=== PATIENT | male | born 1975 | race Caucasian/White ===

== ENCOUNTER 2018-01-15 20:10 | Inpatient (IN) ==
[2018-01-15] MEDS ORDERED: Naloxone 0.4 MG/ML INJ IVP PRN (22:51)
[2018-01-15] MEDS ORDERED: D5% in Water 1,000 ML IVC PRN (22:58)
[2018-01-15] MEDS ORDERED: Dextrose Gel 15 GM/37.5 ML TUBE PO PRN ×2 (22:58)
[2018-01-15] MEDS ORDERED: *HR* Dextrose 50 % in Water (Syg) 50 ML SYRINGE IVP PRN (22:58)
--- NOTE | 2018-01-15 23:26 | Internal Med History&Physical ---
Date of Encounter: 01/15/18 Time of Encounter: 23:00 Internal Medicine - H&P: HPI Chief complaint: N/V Admitted From: Home History of present illness: Mr. Rey is a 42 year old male with past mental history of cirrhosis status post TIPS, psoriasis, metastatic malignant germ cell tumor, presented to the [facility] ED with fever and N/V. Also had intermittent chest pain, substernal, associated with cough, non-radiating, no aggravating/relieving factors. Does not endorse much sputum production. Was not able to eat or drink much due to nausea. No orthopnea, PND, leg swelling. Denies any abdominal pain, distention , diarrhea, constipation, jaundice. No dysuria, hematuria, or frequency. Denies any melena, hematemesis, hematochezia, or bright red blood per rectum. Of note, he was recently treated for K. pneumoniae bacteremia and sepsis and was discharged home on 12/31 with PO levaquin. He has not had further chemotherapy thereafter. In the ED, he was febrile at 102, tachycardic but blood pressure was normal and saturating well on 2 L of nasal cannula. Initial investigation revealed leukocytosis of 16.5, glucose of 377, and beta-OH butyrate of 1.50. Otherwise troponin was negative, EKG shows sinus tachycardia without ST elevation. Urinalysis was negative for nitrite or leukocyte esterase but chest CT showed groundglass type opacities in the right upper lobe suggestive of infectious/inflammatory process. It also showed new left lung apex, 8mm, soft tissue nodule. He was started on Vanc/cefepime and admitted for further management. Past Med Surg Social Fam HX - Past Medical History Attestation: Yes The following information was validated with the patient. Medical history: arthritis, cancer, cirrhosis, diabetes, GERD, GI bleed, hypertension, other Additional medical history: neuropathy Psychiatric history: no psych history - Past Surgical History Surgical History: other Additional surgical history: left testicle removed - Social History Smoking Status: Never smoker Smokeless Tobacco Status: No Alcohol use: none Drug use: none - Family History Father Hx Family Cardiac Disorders: Yes (murrmur) Brother Living Status: Hx Family GI Disorders: Yes (Esophgeal) Maternal Grandmother Adopted: No Hx Family Endocrine Disorder: Yes (diabetic) Internal Medicine - H&P: Meds Insulin DETEMIR [Levemir Flextouch] 45 - 60 unit SQ BID 01/10/15 [History] Rifaximin [Xifaxan] 550 mg PO BID 01/10/15 [History] Vitamin E 400 unit PO DAILY 01/10/15 [History] Apremilast [Otezla] 30 mg PO BID 11/04/17 [History] Calcium Acetate [Phos-LO] 1,334 mg PO TIDWM 11/04/17 [History] Lactulose [Enulose] 15 ml PO TID 11/04/17 [History] Loratadine [Allergy Relief] 10 mg PO DAILY 11/04/17 [History] Lubiprostone [Amitiza] 24 mcg PO BID 11/04/17 [History] Ondansetron HCl 8 mg PO Q8H 11/04/17 [History] Polyethylene Glycol 3350 [MiraLAX] 17 gm PO DAILY 11/04/17 [History] Promethazine [Phenergan] 25 mg PO Q12H PRN 11/04/17 [History] Spironolactone [Aldactone] 100 mg PO DAILY 11/04/17 [History] Zinc Sulfate 220 mg PO TID 11/04/17 [History] FLUoxetine HCl [Fluoxetine HCl] 10 mg PO DAILY 11/27/17 [History] Pregabalin [Lyrica] 200 mg PO BID 11/27/17 [History] Sulfacetamide Sodium [Sodium Sulfacetamide] 237 ml TP 2XW 11/27/17 [History] Lidocaine/Prilocaine [Emla] 1 appl TP AD #30 gm 12/07/17 [Rx] Loperamide [Imodium] 2 mg PO AD PRN #30 capsule 12/07/17 [Rx] Magic Mouthwash 5 ml PO Q4H PRN #240 ml 12/07/17 [Rx] Nystatin [Nystatin Suspension] 100,000 unit PO TID #200 oral.susp 12/21/17 [Rx] 0.9 % Sodium Chloride 1,000 ml IV CONT #1000 ml 12/24/17 [Rx] Amitriptyline [Elavil] 25 mg PO HS 12/26/17 [History] Ferrous Sulfate [Iron] 325 mg PO DAILY 12/26/17 [History] Insulin ASPART [Novolog] 5 - 20 unit SQ TIDWM 12/26/17 [History] Metoclopramide [Reglan] 10 mg PO Q8H PRN 12/26/17 [History] Pantoprazole Sodium [Protonix] 40 mg PO DAILY 12/26/17 [History] metFORMIN [Glucophage] 500 mg PO BIDWM 12/26/17 [History] Levofloxacin [Levaquin] 750 mg PO DAILY 7 Days #7 tablet 12/31/17 [Rx] Megestrol Acetate [Megace] 800 mg PO DAILY #400 udc 01/11/18 [Rx] OxyCODONE Immed Rel [Roxicodone 15 MG] 15 mg PO Q6HR PRN 14 Days #56 tablet 11/23 [Rx] Promethazine [Phenergan] 25 mg PO Q8HR #60 tablet 01/15/18 [Rx] 3 Allergy/AdvReac Type Severity Reaction Status Date / Time morphine Allergy Itching Verified 12/06/17 15:45 All Systems PM: A 10-system review of systems was performed and is negative for pertinent findings except as documented above in the HPI. - Constitutional Vitals: Temp Pulse Resp BP Pulse Ox 99.1 F 123 18 131/70 100 01/15/18 23:06 01/15/18 23:06 01/15/18 23:06 01/15/18 23:06 01/15/18 23:06 Exam: General: Alert and oriented, not in distress HEENT:EOM, pupils equal, round, and reactive. Cardiovascular: Normal S1 & S2, no murmurs or gallops. No JVD. Pulse regular. Lungs: Clear to auscultation, unable to appreciate any rhonchi. No wheezes Abdomen:Soft, non-tender, no rigidity. No rebound/guarding. Extremities: No deformity, no edema or tenderness, no joint swelling. Neurological: Normal cognition and motor skills. Skin: Normal color, no rash, no lesions. Pulses:Carotid and radial pulses normal +2. Rest of the physical exam is non-contributory - Assessment and plan (1) Sepsis Current Visit: No Status: Acute Assessment and plan: Presented with fever, leukocytosis, and tachycardia CT chest suspicious for early pneumonia changes in RUL Patient is immunocompromised as well Started on IV Vanco and cefepime, continue follow up on blood c/s done at [place] PRN tylenol for fever Qualifiers: Sepsis type: sepsis due to unspecified organism Qualified Code(s): A41.9 - Sepsis, unspecified organism (2) Chest pain Current Visit: Yes Status: Acute Assessment and plan: Likely related to pneumonia rule out ACS with 2nd troponin Qualifiers: Chest pain type: unspecified Qualified Code(s): R07.9 - Chest pain, unspecified (3) Diabetes mellitus, type 2 Current Visit: No Status: Chronic Assessment and plan: On Levemir 60U QAM and 43U QPM plus novolog sliding scale at home continue levemir at 40U BID with moderate dose sliding scale Qualifiers: Diabetes mellitus fpc 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 Diabetes mellitus complication status: with neurologic complications Diabetes mellitus complication detail: with unspecified neuropathy Qualified Code(s): E11.40 - Type 2 diabetes mellitus with diabetic neuropathy, unspecified; Z79.4 - group home (current) use of insulin (4) Liver cirrhosis Current Visit: No Status: Acute Assessment and plan: Status post TIPS Resume home dose of lactulose, rifaximin, and Aldactone when reconciled Qualifiers: Hepatic cirrhosis type: unspecified hepatic cirrhosis Ascites presence: unspecified Qualified Code(s): K74.60 - Unspecified cirrhosis of liver (5) Testicular cancer Current Visit: No Status: Acute Assessment and plan: Chemo on hold due to recent hospitalization for sepsis Suspicious nodule on the left lung follow up outpatient Qualifiers: Descendance of testis: unspecified Laterality: unspecified laterality Qualified Code(s): C62.90 - Malignant neoplasm of unspecified testis, unspecified whether descended or undescended (6) DVT prophylaxis Current Visit: No Status: Acute Assessment and plan: SQ heparin - Time Spent With Patient Total time spent is greater than 50% in coordination of care (as documented) at patient's floor/unit and/or counseling patient:
[2018-01-16] MEDS: Insulin DETEMIR 100 UNIT/ML X5UNITS SQ SCH ×3 (01:03→20:25)
[2018-01-16] MEDS: 0.9 % Sodium Chloride 1,000 ML IVC SCH ×3 (01:03→23:10)
[2018-01-16] MEDS: Cefepime HCl 2,000 MG in Water for inj. (sterile) 20 ML 20 ML IVPB SCH ×3 (03:36→17:05)
[2018-01-16 04:42] LABS: Basophils # 0.1 K/mcL (0.0-0.2); Basophils % 0.7 %; Eosinophils # 0.2 K/mcL (0.0-0.6); Eosinophils % 1.8 %; Hematocrit 33.9 % (37.5-50.1); Hemoglobin 11.8 g/dL (12.9-16.9); Immature Granulocytes % 0.4 % (0-4); Lymphocytes # 0.9 K/mcL (0.6-4.6); Lymphocytes % 9.6 %; Mean Corpuscular HGB Conc 34.8 g/dL (31.6-35.5); Mean Corpuscular Hemoglobin 31.1 pg (28.0-33.3); Mean Corpuscular Volume 89.4 fL (83.0-100.0); Mean Platelet Volume 11.4 fL (9.4-12.4); Monocytes % 10.4 %; Neutrophils # 7.5 K/mcL (1.6-8.9); Platelet Count 115 K/mcL (140-400); Red Blood Count 3.79 M/mcL (4.19-5.50); Red Cell Distribution Width 17.4 % (11.5-14.5); Segmented Neutrophils % 77.1 %
[2018-01-16 05:00] LABS: BUN/Creatinine Ratio 48 (6-26); Blood Urea Nitrogen 20 mg/dL (6-20); Calcium 8.1 mg/dL (8.6-10.3); Carbon Dioxide 24 mEq/L (23-29); Chloride 105 mEq/L (98-107); Glucose 280 mg/dL (70-105); Osmolality,Calculated 295 (280-300); Potassium 3.8 mEq/L (3.5-5.1); Sodium 136 mEq/L (136-145); eGFR For Non-African Americans > 60 (> 60)
[2018-01-16] MEDS: *HR* Heparin 5,000 UNIT/ML VIAL SQ SCH ×2 (06:11→17:00)
[2018-01-16] MEDS ORDERED: 0.9 % Sodium Chloride 1,000 ML IVC ONE (08:19)
[2018-01-16] MEDS: Insulin LISPRO 300 UNITS/3 ML VIAL SQ SCH ×4 (08:36→20:15)
--- NOTE | 2018-01-16 08:51 | Internal Med Progress Note ---
<Juan Pablo Queen - Last Filed: 01/16/18 08:54> Hospitalist Progress Note - Encounter Date of Encounter: 01/16/18 Time of Encounter: 08:47 - Subjective Interval History: Pt seen and examined. He states he is feeling better this morning and has no vomiting or subjective fevers. Still has some nausea but was able to eat breakfast and keep it down. Has some constipation and no bowel movement in last 4 days. Denies chest pain, shortness of breath, cough. - Exam Vitals: Temp Pulse Resp BP Pulse Ox 99.1 F 120 18 139/69 98 01/16/18 07:17 01/16/18 07:17 01/16/18 07:17 01/16/18 07:17 01/16/18 07:17 Exam: Gen: NAD, alert, awake HEENT: NCAT, EOMI, neck supple, no LAD Cardiac: RRR, no murmur Lungs: clear Abd: non tender Ext: non-tender, no edema, erythema Neuro: appropriate affect, answers questions appropriately - Assessment and Plan (1) Sepsis Current Visit: No Status: Acute Assessment and Plan: Presented to [place] ED with WBC of 16.5 which has improved to 9.8 Remains tachycardic, and fluid boluses have been ordered Source is presumably pulmonary for now as CTA demonstrated RUL opacity Given recent prolonged hospital stay and recent neutropenic fever, he was started on Vanc and Cefepime Also has lesions in mouth which are concerning for abdulaziz, will start on Micafungin and Nystatin swish and swallow Blood cultures collected at [place] ED currently negative He was discharged 2 weeks ago from here but did not fill his 1 week supply of Levaquin (2) Abdominal discomfort Current Visit: No Status: Acute Assessment and Plan: Symptoms improving, continue supportive measures CTA did demonstrate cholelithiasis without cholecystitis May be candidate as outpatient for surgery (3) Chest pain Current Visit: Yes Status: Acute Assessment and Plan: Currently resolved Troponin negative x2 at [place] Possibly secondary to PNA (4) Diabetes mellitus, type 2 Current Visit: No Status: Chronic Assessment and Plan: Currently on medium dose SSI and Levemir 40 units BID ADA diet (5) Liver cirrhosis Current Visit: No Status: Chronic Assessment and Plan: Stable appearance on CTA s/p TIPS and he is currently on transplant list (6) Testicular cancer Current Visit: No Status: Chronic Assessment and Plan: Chemo currently being held as he was acutely ill with neutropenic fever CTA did demonstrate left lung apex lesion concerning for mets, would recommend further workup as outpatient with PET scan (7) DVT prophylaxis Current Visit: No Status: Acute Assessment and Plan: Heparin 5000 units BID - Time Spent with Patient Total time spent is greater than 50% in coordination of care (as documented) at patient's floor/unit and/or counseling patient: Internal Medicine: Result - Labs CBC & Chem 7: 01/16/18 04:21 01/16/18 04:21 Labs: Short CBC 01/16/18 Range/Units 04:21 WBC 9.8 (4.3-11.1) K/mcL Hgb 11.8 L D (12.9-16.9) g/dL Hct 33.9 L (37.5-50.1) % Plt Count 115 L (140-400) K/mcL Neutrophils # 7.5 (1.6-8.9) K/mcL BMP 01/16/18 04:21 Sodium 136 Potassium 3.8 Chloride 105 Carbon Dioxide 24 BUN 20 Creatinine 0.42 L Glucose 280 H Calcium 8.1 L Cardiac Enzymes 01/15/18 Range/Units 23:05 Troponin I < 0.03 (< 0.04) ng/mL Consult Discharge Plan - Plan Referrals: Tripp Angulo DO [Primary Care Provider] - <Meghan Mcguire - Last Filed: 01/16/18 14:47> Hospitalist Progress Note - Encounter Date of Encounter: 01/16/18 - Exam Vitals: Temp Pulse Resp BP Pulse Ox 98.8 F 118 20 116/68 99 01/16/18 11:27 01/16/18 11:27 01/16/18 11:27 01/16/18 11:27 01/16/18 11:27 - Assessment and Plan (1) Diabetes mellitus, type 2 Current Visit: No Status: Chronic (2) Testicular cancer Current Visit: No Status: Chronic (3) Liver cirrhosis Current Visit: No Status: Chronic (4) DVT prophylaxis Current Visit: No Status: Acute (5) Sepsis Current Visit: No Status: Inactive (6) Chest pain Current Visit: Yes Status: Acute - Time Spent with Patient Total time spent is greater than 50% in coordination of care (as documented) at patient's floor/unit and/or counseling patient: Internal Medicine: Result - Labs CBC & Chem 7: 01/16/18 04:21 01/16/18 04:21 Labs: Short CBC 01/16/18 Range/Units 04:21 WBC 9.8 (4.3-11.1) K/mcL Hgb 11.8 L D (12.9-16.9) g/dL Hct 33.9 L (37.5-50.1) % Plt Count 115 L (140-400) K/mcL Neutrophils # 7.5 (1.6-8.9) K/mcL BMP 01/16/18 04:21 Sodium 136 Potassium 3.8 Chloride 105 Carbon Dioxide 24 BUN 20 Creatinine 0.42 L Glucose 280 H Calcium 8.1 L Cardiac Enzymes 01/15/18 Range/Units 23:05 Troponin I < 0.03 (< 0.04) ng/mL - Attending Attestation I examined this patient and my medical decision-making was reviewed with the Resident Physician Dr. Queen. I agree with the documented findings, disposition and treatment plan as described except to the extent set forth below. Mr. Rey is a 42 year old male with past mental history of cirrhosis status post TIPS, psoriasis, metastatic malignant germ cell tumor, presented to the [facility] ED with fever and N/V. He was recently treated for K. pneumoniae bacteremia and sepsis and was discharged home on 12/31 with PO levaquin. He has not had further chemotherapy thereafter. In the ED, he was febrile at 102, tachycardic but blood pressure was normal and saturating well on 2 L of nasal cannula. Chest CT showed groundglass type opacities in the right upper lobe suggestive of infectious/inflammatory process. He also c/o throat pain and difficulty to swallow, burning sensation at mid sternal region. gen: A, A, O x 3 Chest: Diminished BS b/l Heart; S1S2+ RRR No murmurs Abd: Soft, NT, BS + HEENT: oral thrush+ a/p 1. Sepsis with pneumonia mostly bacterial cont broad spec abx IV hydration 2. Oral thrush 3. Acute esophagitis - possible abdulaziz inf started on Micafungin also placed him on Nystatin oral jena <Juan Pablo Queen - Last Filed: 01/16/18 08:54> (1) Sepsis Qualifiers: Sepsis type: sepsis due to unspecified organism Qualified Code(s): A41.9 - Sepsis, unspecified organism (3) Chest pain Qualifiers: Chest pain type: unspecified Qualified Code(s): R07.9 - Chest pain, unspecified (4) Diabetes mellitus, type 2 Qualifiers: Diabetes mellitus retirement insulin use: with retirement use Diabetes mellitus complication status: with neurologic complications Diabetes mellitus complication detail: with unspecified neuropathy Qualified Code(s): E11.40 - Type 2 diabetes mellitus with diabetic neuropathy, unspecified; 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.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 (5) Liver cirrhosis Qualifiers: Hepatic cirrhosis type: unspecified hepatic cirrhosis Ascites presence: unspecified Qualified Code(s): K74.60 - Unspecified cirrhosis of liver (6) Testicular cancer Qualifiers: Descendance of testis: unspecified Laterality: unspecified laterality Qualified Code(s): C62.90 - Malignant neoplasm of unspecified testis, unspecified whether descended or undescended <Meghan Mcguire - Last Filed: 01/16/18 14:47> (1) Diabetes mellitus, type 2 Qualifiers: 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 use Diabetes mellitus complication status: with neurologic complications Diabetes mellitus complication detail: with unspecified neuropathy Qualified Code(s): E11.40 - Type 2 diabetes mellitus with diabetic neuropathy, unspecified; Z79.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 (2) Testicular cancer Qualifiers: Descendance of testis: unspecified Laterality: unspecified laterality Qualified Code(s): C62.90 - Malignant neoplasm of unspecified testis, unspecified whether descended or undescended (3) Liver cirrhosis Qualifiers: Hepatic cirrhosis type: unspecified hepatic cirrhosis Ascites presence: unspecified Qualified Code(s): K74.60 - Unspecified cirrhosis of liver (5) Sepsis Qualifiers: Sepsis type: sepsis due to unspecified organism Qualified Code(s): A41.9 - Sepsis, unspecified organism (6) Chest pain Qualifiers: Chest pain type: unspecified Qualified Code(s): R07.9 - Chest pain, unspecified
[2018-01-16] MEDS: Ondansetron ODT 4 MG TAB.RAPDIS SL PRN ×3 (08:55→23:09)
[2018-01-16] MEDS: Micafungin 100 MG in 0.9 % Sodium Chloride Mini Bag 100 ML IVPB SCH (09:57)
[2018-01-16] MEDS: Nystatin SUSP 5 ML UD.LIQ PO SCH ×4 (09:58→20:24)
[2018-01-16] MEDS ORDERED: Sennosides/Docusate Sodium TABLET PO PRN (10:37)
[2018-01-16] MEDS: *HR* OxyCODONE Immed Rel 15 MG TABLET PO PRN ×2 (17:06→23:09)
[2018-01-17] MEDS: Cefepime HCl 2,000 MG in Water for inj. (sterile) 20 ML 20 ML IVPB SCH ×3 (01:46→18:31)
[2018-01-17] MEDS: *HR* Heparin 5,000 UNIT/ML VIAL SQ SCH ×2 (05:15→18:31)
[2018-01-17] MEDS: *HR* OxyCODONE Immed Rel 15 MG TABLET PO PRN ×3 (05:21→21:57)
[2018-01-17] MEDS: Ondansetron ODT 4 MG TAB.RAPDIS SL PRN ×3 (05:21→21:57)
[2018-01-17 05:24] LABS: Immature Granulocytes % 0.2 % (0-4); Mean Platelet Volume 12.3 fL (9.4-12.4)
[2018-01-17 05:27] LABS: Basophils # 0.1 K/mcL (0.0-0.2); Basophils % 1.1 %; Eosinophils # 0.2 K/mcL (0.0-0.6); Eosinophils % 3.8 %; Hemoglobin 11.4 g/dL (12.9-16.9); Immature Platelets 7.6 % (1.1-6.1); Lymphocytes # 0.7 K/mcL (0.6-4.6); Lymphocytes % 15.3 %; Mean Corpuscular HGB Conc 34.5 g/dL (31.6-35.5); Mean Corpuscular Hemoglobin 32.1 pg (28.0-33.3); Monocytes # 0.6 K/mcL (0.0-1.3); Monocytes % 12.1 %; Neutrophils # 3.2 K/mcL (1.6-8.9); Red Blood Count 3.55 M/mcL (4.19-5.50); Red Cell Distribution Width 17.1 % (11.5-14.5); Segmented Neutrophils % 67.5 %
[2018-01-17 05:32] LABS: Platelet Count 62 K/mcL (140-400)
[2018-01-17 05:46] LABS: BUN/Creatinine Ratio 50 (6-26); Blood Urea Nitrogen 19 mg/dL (6-20); Calcium 8.1 mg/dL (8.6-10.3); Carbon Dioxide 26 mEq/L (23-29); Chloride 108 mEq/L (98-107); Glucose 119 mg/dL (70-105); Osmolality,Calculated 289 (280-300); Potassium 3.6 mEq/L (3.5-5.1); Sodium 138 mEq/L (136-145); eGFR For Non-African Americans > 60 (> 60)
[2018-01-17] MEDS: Insulin LISPRO 300 UNITS/3 ML VIAL SQ SCH ×4 (08:05→21:57)
[2018-01-17] MEDS: Nystatin SUSP 5 ML UD.LIQ PO SCH ×4 (08:43→21:57)
[2018-01-17] MEDS: Micafungin 100 MG in 0.9 % Sodium Chloride Mini Bag 100 ML IVPB SCH (08:45)
[2018-01-17] MEDS: Insulin DETEMIR 100 UNIT/ML X5UNITS SQ SCH ×2 (08:45→21:57)
[2018-01-17] MEDS: 0.9 % Sodium Chloride 1,000 ML IVC SCH ×2 (08:46→21:58)
--- NOTE | 2018-01-17 09:39 | Internal Med Progress Note ---
<Juan Pablo Queen - Last Filed: 01/17/18 10:50> Hospitalist Progress Note - Encounter Date of Encounter: 01/17/18 Time of Encounter: 09:38 - Subjective Interval History: Pt seen and examined. He states that he is having difficulty eating as the food feels like it is getting stuck after reaching his stomach. Denies any vomiting and has not had a bowel movement since admission. Denies chest pain or difficultly breathing. - Exam Vitals: Temp Pulse Resp BP Pulse Ox 98.0 F 107 16 117/74 98 01/17/18 07:41 01/17/18 07:41 01/17/18 07:41 01/17/18 07:41 01/17/18 07:41 Exam: Gen: NAD, alert, awake HEENT: NCAT, EOMI, neck supple, no LAD Cardiac: RRR, no murmur Lungs: clear Abd: tender epigastric Ext: non-tender, no edema, erythema Neuro: appropriate affect, answers questions appropriately - Assessment and Plan (1) Sepsis Current Visit: No Status: Acute Assessment and Plan: Presented to [place] ED with WBC of 16.5 which has improved to 4.7 Remains tachycardic, and fluid boluses have been ordered Source is presumably pulmonary for now as CTA demonstrated RUL opacity Given recent prolonged hospital stay and recent neutropenic fever, he was started on Vanc and Cefepime Also has lesions in mouth which are concerning for abdulaziz, continue on Micafungin and Nystatin swish and swallow Blood cultures collected at [place] ED currently negative He was discharged 2 weeks ago from here but did not fill his 1 week supply of Levaquin (2) Abdominal discomfort Current Visit: No Status: Acute Assessment and Plan: Symptoms slightly worsened today as patient has discomfort during meals CTA did demonstrate cholelithiasis without cholecystitis Will obtain RUQ ultrasound and consider surgical consult May qualify for endoscopy as well, so make NPO at midnight (3) Chest pain Current Visit: Yes Status: Acute Assessment and Plan: Currently resolved Troponin negative x2 at [place] Possibly secondary to PNA (4) Diabetes mellitus, type 2 Current Visit: No Status: Chronic Assessment and Plan: Currently on medium dose SSI and Levemir 40 units BID ADA diet (5) Liver cirrhosis Current Visit: No Status: Chronic Assessment and Plan: Stable appearance on CTA s/p TIPS and he is currently on transplant list Consider GI consult for endoscopy if surgery not needed for gallbladder (6) Testicular cancer Current Visit: No Status: Chronic Assessment and Plan: Chemo currently being held as he was acutely ill with neutropenic fever CTA did demonstrate left lung apex lesion concerning for mets, would recommend further workup as outpatient with PET scan (7) DVT prophylaxis Current Visit: No Status: Acute Assessment and Plan: Heparin 5000 units BID - Time Spent with Patient Total time spent is greater than 50% in coordination of care (as documented) at patient's floor/unit and/or counseling patient: Internal Medicine: Result - Labs CBC & Chem 7: 01/17/18 04:52 01/17/18 04:52 Labs: Short CBC 01/17/18 Range/Units 04:52 WBC 4.7 D (4.3-11.1) K/mcL Hgb 11.4 L (12.9-16.9) g/dL Hct 33.0 L (37.5-50.1) % Plt Count 62 L (140-400) K/mcL Neutrophils # 3.2 (1.6-8.9) K/mcL BMP 01/17/18 04:52 Sodium 138 Potassium 3.6 Chloride 108 H Carbon Dioxide 26 BUN 19 Creatinine 0.38 L Glucose 119 H Calcium 8.1 L Consult Discharge Plan - Plan Referrals: Tripp Angulo DO [Primary Care Provider] - <Meghan Mcguire - Last Filed: 01/17/18 15:17> Hospitalist Progress Note - Encounter Date of Encounter: 01/17/18 - Exam Vitals: Temp Pulse Resp BP Pulse Ox 98.2 F 115 16 121/76 97 01/17/18 12:02 01/17/18 12:02 01/17/18 12:02 01/17/18 12:02 01/17/18 12:02 - Assessment and Plan (1) Diabetes mellitus, type 2 Current Visit: No Status: Chronic (2) Testicular cancer Current Visit: No Status: Chronic (3) Liver cirrhosis Current Visit: No Status: Chronic (4) DVT prophylaxis Current Visit: No Status: Acute (5) Sepsis Current Visit: No Status: Inactive (6) Chest pain Current Visit: Yes Status: Acute - Time Spent with Patient Total time spent is greater than 50% in coordination of care (as documented) at patient's floor/unit and/or counseling patient: Internal Medicine: Result - Labs CBC & Chem 7: 01/17/18 04:52 01/17/18 04:52 Labs: Short CBC 01/17/18 Range/Units 04:52 WBC 4.7 D (4.3-11.1) K/mcL Hgb 11.4 L (12.9-16.9) g/dL Hct 33.0 L (37.5-50.1) % Plt Count 62 L (140-400) K/mcL Neutrophils # 3.2 (1.6-8.9) K/mcL BMP 01/17/18 04:52 Sodium 138 Potassium 3.6 Chloride 108 H Carbon Dioxide 26 BUN 19 Creatinine 0.38 L Glucose 119 H Calcium 8.1 L - Attending Attestation I examined this patient and my medical decision-making was reviewed with the Resident Physician Dr. Queen. I agree with the documented findings, disposition and treatment plan as described except to the extent set forth below. Mr. Rey is a 42 year old male with past mental history of cirrhosis status post TIPS, psoriasis, metastatic malignant germ cell tumor, presented to the [facility] ED with fever and N/V. He was recently treated for K. pneumoniae bacteremia and sepsis and was discharged home on 12/31 with PO levaquin. He has not had further chemotherapy thereafter. In the ED, he was febrile at 102, tachycardic but blood pressure was normal and saturating well on 2 L of nasal cannula. Chest CT showed ground glass type opacities in the right upper lobe suggestive of infectious/inflammatory process. He also c/o throat pain and difficulty to swallow, burning sensation at mid sternal region as well as epi gastric region gen: A, A, O x 3 Chest: Diminished BS b/l Heart; S1S2+ RRR No murmurs Abd: Soft, NT, BS + HEENT: oral thrush+ a/p 1. Sepsis with pneumonia mostly bacterial cont broad spec abx IV hydration 2. Oral thrush 3. 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 Diabetes mellitus complication status: with neurologic complications Diabetes mellitus complication detail: with unspecified neuropathy Qualified Code(s): E11.40 - Type 2 diabetes mellitus with diabetic neuropathy, unspecified; Z79.4 - [facility] (current) use of insulin (5) Liver cirrhosis Qualifiers: Hepatic cirrhosis type: unspecified hepatic cirrhosis Ascites presence: unspecified Qualified Code(s): K74.60 - Unspecified cirrhosis of liver (6) Testicular cancer Qualifiers: Descendance of testis: unspecified Laterality: unspecified laterality Qualified Code(s): C62.90 - Malignant neoplasm of unspecified testis, unspecified whether descended or undescended <Meghan Mcguire - Last Filed: 01/17/18 15:17> (1) Diabetes mellitus, type 2 Qualifiers: Diabetes mellitus halfway insulin use: with halfway use Diabetes mellitus complication status: with neurologic complications Diabetes mellitus complication detail: with unspecified neuropathy Qualified Code(s): E11.40 - Type 2 diabetes mellitus with diabetic neuropathy, unspecified; Z79.4 - [facility] (current) use of insulin (2) Testicular cancer Qualifiers: Descendance of testis: unspecified Laterality: unspecified laterality Qualified Code(s): C62.90 - Malignant neoplasm of unspecified testis, unspecified whether descended or undescended (3) Liver cirrhosis Qualifiers: Hepatic cirrhosis type: unspecified hepatic cirrhosis Ascites presence: unspecified Qualified Code(s): K74.60 - Unspecified cirrhosis of liver (5) Sepsis Qualifiers: Sepsis type: sepsis due to unspecified organism Qualified Code(s): A41.9 - Sepsis, unspecified organism (6) Chest pain Qualifiers: Chest pain type: unspecified Qualified Code(s): R07.9 - Chest pain, unspecified
[2018-01-17] MEDS: Metoclopramide 10 MG/2 ML VIAL IVP PRN (11:05)
[2018-01-18] MEDS: Cefepime HCl 2,000 MG in Water for inj. (sterile) 20 ML 20 ML IVPB SCH ×2 (02:06→08:55)
[2018-01-18 05:17] LABS: Basophils % 0.8 %; Eosinophils # 0.1 K/mcL (0.0-0.6); Eosinophils % 3.6 %; Hematocrit 30.2 % (37.5-50.1); Hemoglobin 10.4 g/dL (12.9-16.9); Immature Granulocytes % 0.3 % (0-4); Lymphocytes # 0.6 K/mcL (0.6-4.6); Lymphocytes % 14.3 %; Mean Corpuscular HGB Conc 34.4 g/dL (31.6-35.5); Mean Corpuscular Hemoglobin 31.2 pg (28.0-33.3); Mean Corpuscular Volume 90.7 fL (83.0-100.0); Mean Platelet Volume 12.4 fL (9.4-12.4); Monocytes # 0.5 K/mcL (0.0-1.3); Neutrophils # 2.7 K/mcL (1.6-8.9); Red Blood Count 3.33 M/mcL (4.19-5.50); Red Cell Distribution Width 16.9 % (11.5-14.5)
[2018-01-18 05:19] LABS: Platelet Count 57 K/mcL (140-400)
[2018-01-18 05:21] LABS: INR 1.5; Prothrombin Time 17.1 Seconds (9.4-12.1)
[2018-01-18 05:43] LABS: Alanine Aminotransferase 13 Units/L (7-52); Albumin 2.3 g/dL (3.5-5.7); Albumin/Globulin Ratio 0.9 (1.1-2.2); Alkaline Phosphatase 99 Units/L (34-104); Aspartate Amino Transferase 26 Units/L (13-39); BUN/Creatinine Ratio 35 (6-26); Blood Urea Nitrogen 12 mg/dL (6-20); Calcium 7.9 mg/dL (8.6-10.3); Carbon Dioxide 26 mEq/L (23-29); Chloride 109 mEq/L (98-107); Globulin 2.7 g/dL (2.4-3.5); Glucose 79 mg/dL (70-105); Osmolality,Calculated 285 (280-300); Potassium 3.5 mEq/L (3.5-5.1); Sodium 138 mEq/L (136-145); eGFR For Non-African Americans > 60 (> 60)
[2018-01-18] MEDS: *HR* Heparin 5,000 UNIT/ML VIAL SQ SCH (06:26)
[2018-01-18] MEDS: Nystatin SUSP 5 ML UD.LIQ PO SCH ×4 (08:54→20:29)
[2018-01-18] MEDS: Insulin LISPRO 300 UNITS/3 ML VIAL SQ SCH ×4 (08:56→20:31)
[2018-01-18] MEDS: Micafungin 100 MG in 0.9 % Sodium Chloride Mini Bag 100 ML IVPB SCH (08:56)
[2018-01-18] MEDS: Insulin DETEMIR 100 UNIT/ML X5UNITS SQ SCH ×2 (08:57→20:30)
--- NOTE | 2018-01-18 12:40 | Electrocardiograph Report ---
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
--- NOTE | 2018-01-18 13:13 | Internal Med Progress Note ---
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 Since admission the patient was found to be septic with most likely source being a right upper lobe opacity. Today the patient states his abdominal pain persists. He states that he feels a sense of fullness in his throat when eating then feels a sharp, knot-like pain in his abdomen immediately afterwards. He notes continued cough and coffee ground emesis. He is otherwise having normal bowel movements and urinating without problems. - Exam Vitals: Temp Pulse Resp BP Pulse Ox 98.7 F 106 16 124/72 99 01/18/18 11:40 01/18/18 11:40 01/18/18 11:40 01/18/18 11:40 01/18/18 11:40 Exam: General: Patient is a 42yo white male, appears older than his stated age. Conversant, No Apparent Distress, able to speak in full sentences and follow commands Neck: No JVD, trachea midline HEENT: PERRL, normocephalic, atraumatic, patchy hair secondary to chemotherapy Cardiac: Tachycardic, regular Rhythm, Normal S1 and S2, No murmurs appreciated Pulmonary: Decreased breath sounds in RUL, No Wheezes, Rales, or Rhonchi, Not in respiratory distress on 1L NC Abdomen: soft, distended, tenderness periumbilically R>L, no murphys or mcburneys tenderness Neuro: Alert and responsive, No focal deficits noted Vascular: Normal capillary refill Skin: No rashes noted on visualized skin Musculoskeletal: No Chest Wall Tenderness Extremities: No Clubbing, No Cyanosis, No Edema, Normal Pulses Psych: Normal mood, pleasant, conversant - Assessment and Plan (1) Sepsis Current Visit: No Status: Acute Assessment and Plan: - Likely secondary to pneumonia - Continue on cefepime, will decrease from neutropenic dosage of 2g to 1g every 8 hours per pharmacy recommendations, will discontinue vancomycin - Given fungal infection, will continue nystatin (2) Chest pain Current Visit: Yes Status: Acute Assessment and Plan: - Currently resolved, states this is only present when he eats - Troponins x2 negative on admission, EKG sinus tachycardia (3) Testicular cancer Current Visit: No Status: Chronic Assessment and Plan: - Metastatic, s/p orchiectomy on L, now metastasized to lymph nodes with possibly a new lesion in the left lung apex - will require outpatient PET scan (4) Abdominal discomfort Current Visit: Yes Status: Acute Assessment and Plan: - RUQ US showed cholelithiasis without evidence of cholecystitis - Patient has coffee-ground emesis and history of cirrhosis with esophageal varices, will consult GI for endoscopy - Continues on zofran 4mg, metoclopramide 5mg, and senna (5) 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 Current Visit: No Status: Chronic Assessment and Plan: - H/o esophageal ulcers, given new onset coffee-ground emesis and persistent abdominal pain after eating will consult GI for endoscopy (6) Diabetes mellitus, type 2 Current Visit: No Status: Chronic Assessment and Plan: - Continues on insulin detemir 40units BID and sliding scale humalog (7) DVT prophylaxis Current Visit: No Status: Acute Assessment and Plan: - Given thrombocytopenia and possible GI bleeding, have discontinued heparin, will continue the patient on SCDs - Time Spent with Patient Total time spent is greater than 50% in coordination of care (as documented) at patient's floor/unit and/or counseling patient: Internal Medicine: Result - Labs CBC & Chem 7: 01/18/18 04:56 01/18/18 04:56 Labs: Short CBC 01/18/18 Range/Units 04:56 WBC 3.9 L (4.3-11.1) K/mcL Hgb 10.4 L (12.9-16.9) g/dL Hct 30.2 L (37.5-50.1) % Plt Count 57 L (140-400) K/mcL Neutrophils # 2.7 (1.6-8.9) K/mcL BMP 01/18/18 04:56 Sodium 138 Potassium 3.5 Chloride 109 H Carbon Dioxide 26 BUN 12 Creatinine 0.34 L Glucose 79 Calcium 7.9 L Liver Function 01/18/18 Range/Units 04:56 Total Bilirubin 2.0 H (0.3-1.0) mg/dL AST 26 (13-39) Units/L ALT 13 (7-52) Units/L Alkaline Phosphatase 99 (34-104) Units/L Albumin 2.3 L (3.5-5.7) g/dL - ABG Interpretation ABG results: PT/INR, D-dimer PT 17.1 Seconds (9.4-12.1) H 01/18/18 04:56 - Impressions Impressions Gallbladder Ultrasound 01/18/18 08:00 IMPRESSION: 1. Cholelithiasis without evidence of cholecystitis. 2. Cirrhotic appearing liver as described. D/ / Farida Wilkerson MD / Farida Wilkerson MD Interpreting Provider: Farida Wilekrson MD Consult Discharge Plan - Plan Referrals: Tripp Angulo DO [Primary Care Provider] - <Meghan Mcguire - Last Filed: 01/18/18 15:08> Hospitalist Progress Note - Encounter Date of Encounter: 01/18/18 - Exam Vitals: Temp Pulse Resp BP Pulse Ox 98.3 F 115 18 136/74 100 01/18/18 14:14 01/18/18 14:14 01/18/18 14:14 01/18/18 14:14 01/18/18 14:14 - Assessment and Plan (1) Diabetes mellitus, type 2 Current Visit: No Status: Chronic (2) Testicular cancer Current Visit: No Status: Chronic (3) Liver cirrhosis Current Visit: No Status: Chronic (4) DVT prophylaxis Current Visit: No Status: Acute (5) Sepsis Current Visit: No Status: Inactive (6) Chest pain Current Visit: Yes Status: Acute - Time Spent with Patient Total time spent is greater than 50% in coordination of care (as documented) at patient's floor/unit and/or counseling patient: Internal Medicine: Result - Labs CBC & Chem 7: 01/18/18 04:56 01/18/18 04:56 Labs: Short CBC 01/18/18 Range/Units 04:56 WBC 3.9 L (4.3-11.1) K/mcL Hgb 10.4 L (12.9-16.9) g/dL Hct 30.2 L (37.5-50.1) % Plt Count 57 L (140-400) K/mcL Neutrophils # 2.7 (1.6-8.9) K/mcL BMP 01/18/18 04:56 Sodium 138 Potassium 3.5 Chloride 109 H Carbon Dioxide 26 BUN 12 Creatinine 0.34 L Glucose 79 Calcium 7.9 L Liver Function 01/18/18 Range/Units 04:56 Total Bilirubin 2.0 H (0.3-1.0) mg/dL AST 26 (13-39) Units/L ALT 13 (7-52) Units/L Alkaline Phosphatase 99 (34-104) Units/L Albumin 2.3 L (3.5-5.7) g/dL - ABG Interpretation ABG results: PT/INR, D-dimer PT 17.1 Seconds (9.4-12.1) H 01/18/18 04:56 - Impressions Impressions Gallbladder Ultrasound 01/18/18 08:00 IMPRESSION: 1. Cholelithiasis without evidence of cholecystitis. 2. Cirrhotic appearing liver as described. D/ / Farida Wilkerson MD / Farida Wilkerson MD Interpreting Provider: Farida Wilkerson MD - Attending Attestation I examined this patient and my medical decision-making was reviewed with the Resident Physician Dr. Roa. I agree with the documented findings, disposition and treatment plan as described except to the extent set forth below. Mr. Rey is a 42 year old male with past mental history of cirrhosis status post TIPS, psoriasis, metastatic malignant germ cell tumor, presented to the [facility] ED with fever and N/V. He was recently treated for K. pneumoniae bacteremia and sepsis and was discharged home on 12/31 with PO levaquin. He has not had further chemotherapy thereafter. In the ED, he was febrile at 102, tachycardic but blood pressure was normal and saturating well on 2 L of nasal cannula. Chest CT showed ground glass type opacities in the right upper lobe suggestive of infectious/inflammatory process. He also c/o throat pain and difficulty to swallow, burning sensation at mid sternal region as well as epi gastric region gen: A, A, O x 3 Chest: Diminished BS b/l Heart; S1S2+ RRR No murmurs Abd: Soft, NT, BS + HEENT: oral thrush+ a/p 1. Sepsis with pneumonia mostly bacterial cont broad spec abx d/c Vancomycin IV hydration 2. Oral thrush 3. Acute esophagitis - possible abdulaziz inf Con Micafungin # 3/10 Cont Nystatin oral jena Consulted GI for possible EGD today 4. Acute on chronic thrombocytopenia due to sepsis d/c SQ Heparin cont close monitoring <Deepthi Roa - Last Filed: 01/18/18 14:54> (1) Sepsis Qualifiers: Sepsis type: sepsis due to unspecified organism Qualified Code(s): A41.9 - Sepsis, unspecified organism (2) Chest pain Qualifiers: Chest pain type: unspecified Qualified Code(s): R07.9 - Chest pain, unspecified (3) Testicular cancer Qualifiers: Descendance of testis: unspecified Laterality: unspecified laterality Qualified Code(s): C62.90 - Malignant neoplasm of unspecified testis, unspecified whether descended or undescended (6) Diabetes mellitus, type 2 Qualifiers: Diabetes mellitus termination clerk insulin use: with custodial use Diabetes mellitus complication status: with neurologic complications Diabetes mellitus complication detail: with unspecified neuropathy Qualified Code(s): E11.40 - Type 2 diabetes mellitus with diabetic neuropathy, unspecified; Z79.4 - manager long term care (current) use of insulin <Meghan Mcguire - Last Filed: 01/18/18 15:08> (1) Diabetes mellitus, type 2 Qualifiers: Diabetes mellitus termination clerk insulin use: with custodial use Diabetes mellitus complication status: with neurologic complications Diabetes mellitus complication detail: with unspecified neuropathy Qualified Code(s): E11.40 - Type 2 diabetes mellitus with diabetic neuropathy, unspecified; Z79.4 - assisted (current) use of insulin (2) Testicular cancer Qualifiers: Descendance of testis: unspecified Laterality: unspecified laterality Qualified Code(s): C62.90 - Malignant neoplasm of unspecified testis, unspecified whether descended or undescended (3) Liver cirrhosis Qualifiers: Hepatic cirrhosis type: unspecified hepatic cirrhosis Ascites presence: unspecified Qualified Code(s): K74.60 - Unspecified cirrhosis of liver (5) Sepsis Qualifiers: Sepsis type: sepsis due to unspecified organism Qualified Code(s): A41.9 - Sepsis, unspecified organism (6) Chest pain Qualifiers: Chest pain type: unspecified Qualified Code(s): R07.9 - Chest pain, unspecified
[2018-01-18] MEDS ORDERED: *HR* Propofol 200 MG/20 ML VIAL IVP ONE (13:24)
[2018-01-18] MEDS ORDERED: Lidocaine -MPF 2% 2 ML VIAL ONE (13:24)
--- NOTE | 2018-01-18 13:34 | Anesthesia Evaluation PreOp ---
Date of Encounter: 01/18/18 Time of Encounter: 13:32 - Past History Planned Operation: EGD Cardiac History: HTN Pulmonary History: Other (Suspicious L-long nodule) BRIDGE MECHANIC History: Other (Hx Neuropathy) Other Medical History: Hepatic (Cirrhosis s/p TIPS procedure), Diabetes Type II , GERD (Hx GIB), Other (Metastatic Malignant Germ Cell) Anesthesia History: Past Anesthesia (Orchiectomy re: germ cell tumor) Alcohol Use: none Drug use: none Medications and Allergies Insulin DETEMIR [Levemir Flextouch] 45 - 60 unit SQ BID 01/10/15 [History] Rifaximin [Xifaxan] 550 mg PO BID 01/10/15 [History] Vitamin E 400 unit PO DAILY 01/10/15 [History] Apremilast [Otezla] 30 mg PO BID 11/04/17 [History] Calcium Acetate [Phos-LO] 1,334 mg PO TIDWM 11/04/17 [History] Lactulose [Enulose] 15 ml PO TID 11/04/17 [History] Loratadine [Allergy Relief] 10 mg PO DAILY 11/04/17 [History] Lubiprostone [Amitiza] 24 mcg PO BID 11/04/17 [History] Ondansetron HCl 8 mg PO Q8H 11/04/17 [History] Polyethylene Glycol 3350 [MiraLAX] 17 gm PO DAILY 11/04/17 [History] Spironolactone [Aldactone] 100 mg PO DAILY 11/04/17 [History] Zinc Sulfate 220 mg PO TID 11/04/17 [History] FLUoxetine HCl [Fluoxetine HCl] 10 mg PO DAILY 11/27/17 [History] Pregabalin [Lyrica] 200 mg PO BID 11/27/17 [History] Lidocaine/Prilocaine [Emla] 1 appl TP AD #30 gm 12/07/17 [Rx] Loperamide [Imodium] 2 mg PO AD PRN #30 capsule 12/07/17 [Rx] Magic Mouthwash 5 ml PO Q4H PRN #240 ml 12/07/17 [Rx] Nystatin [Nystatin Suspension] 100,000 unit PO TID #200 oral.susp 12/21/17 [Rx] 0.9 % Sodium Chloride 1,000 ml IV CONT #1000 ml 12/24/17 [Rx] Amitriptyline [Elavil] 25 mg PO HS 12/26/17 [History] Ferrous Sulfate [Iron] 325 mg PO DAILY 12/26/17 [History] Insulin ASPART [Novolog] 5 - 20 unit SQ TIDWM 12/26/17 [History] Metoclopramide [Reglan] 10 mg PO Q8H PRN 12/26/17 [History] Pantoprazole Sodium [Protonix] 40 mg PO DAILY 12/26/17 [History] metFORMIN [Glucophage] 500 mg PO BIDWM 12/26/17 [History] Megestrol Acetate [Megace] 800 mg PO DAILY #400 udc 01/11/18 [Rx] OxyCODONE Immed Rel [Roxicodone 15 MG] 15 mg PO Q6HR PRN 14 Days #56 tablet 11/23 [Rx] Promethazine [Phenergan] 25 mg PO Q8HR #60 tablet 01/15/18 [Rx] 3 Allergy/AdvReac Type Severity Reaction Status Date / Time morphine Allergy Itching Verified 12/06/17 15:45 - Meds/Allergy Pre-op Review Medications Reviewed: Yes Allergies Reviewed: Yes Beta Blockers on Current Med List: No Anesthesia Results - Labs 01/18/18 04:56 01/18/18 04:56 Laboratory Results WBC 3.9 K/mcL (4.3-11.1) L 01/18/18 04:56 RBC 3.33 M/mcL (4.19-5.50) L 01/18/18 04:56 Hgb 10.4 g/dL (12.9-16.9) L 01/18/18 04:56 Hct 30.2 % (37.5-50.1) L 01/18/18 04:56 MCV 90.7 fL (83.0-100.0) 01/18/18 04:56 MCH 31.2 pg (28.0-33.3) 01/18/18 04:56 MCHC 34.4 g/dL (31.6-35.5) 01/18/18 04:56 RDW 16.9 % (11.5-14.5) H 01/18/18 04:56 Plt Count 57 K/mcL (140-400) L 01/18/18 04:56 MPV 12.4 fL (9.4-12.4) 01/18/18 04:56 Immature Gran % 0.3 % (0-4) 01/18/18 04:56 Seg Neutrophils % 69.0 % 01/18/18 04:56 Lymphocytes % 14.3 % 01/18/18 04:56 Monocytes % 12.0 % 01/18/18 04:56 Eosinophils % 3.6 % 01/18/18 04:56 Basophils % 0.8 % 01/18/18 04:56 Neutrophils # 2.7 K/mcL (1.6-8.9) 01/18/18 04:56 Lymphocytes # 0.6 K/mcL (0.6-4.6) 01/18/18 04:56 Monocytes # 0.5 K/mcL (0.0-1.3) 01/18/18 04:56 Eosinophils # 0.1 K/mcL (0.0-0.6) 01/18/18 04:56 Basophils # 0.0 K/mcL (0.0-0.2) 01/18/18 04:56 Immature Plt Fraction 7.6 % (1.1-6.1) H 01/17/18 04:52 PT 17.1 Seconds (9.4-12.1) H 01/18/18 04:56 INR 1.5 01/18/18 04:56 Sodium 138 mEq/L (136-145) 01/18/18 04:56 Potassium 3.5 mEq/L (3.5-5.1) 01/18/18 04:56 Chloride 109 mEq/L (98-107) H 01/18/18 04:56 Carbon Dioxide 26 mEq/L (23-29) 01/18/18 04:56 BUN 12 mg/dL (6-20) 01/18/18 04:56 Creatinine 0.34 mg/dL (0.70-1.30) L 01/18/18 04:56 Est GFR ( Amer) > 60 (> 60) 01/18/18 04:56 Est GFR (Non-Af Amer) > 60 (> 60) 01/18/18 04:56 BUN/Creatinine Ratio 35 (6-26) H 01/18/18 04:56 Glucose 79 mg/dL (70-105) 01/18/18 04:56 POC Glucose 225 mg/dL (70-99) H 01/17/18 20:10 Calculated Osmolality 285 (280-300) 01/18/18 04:56 Calcium 7.9 mg/dL (8.6-10.3) L 01/18/18 04:56 Total Bilirubin 2.0 mg/dL (0.3-1.0) H 01/18/18 04:56 AST 26 Units/L (13-39) 01/18/18 04:56 ALT 13 Units/L (7-52) 01/18/18 04:56 Alkaline Phosphatase 99 Units/L (34-104) 01/18/18 04:56 Troponin I < 0.03 ng/mL (< 0.04) 01/15/18 23:05 Serum Total Protein 5.0 g/dL (6.4-8.9) L 01/18/18 04:56 Albumin 2.3 g/dL (3.5-5.7) L 01/18/18 04:56 Globulin 2.7 g/dL (2.4-3.5) 01/18/18 04:56 Albumin/Globulin Ratio 0.9 (1.1-2.2) L 01/18/18 04:56 Vancomycin Trough 7 mcg/mL (5-10) 01/17/18 08:13 Impressions Gallbladder Ultrasound 01/18/18 08:00 IMPRESSION: 1. Cholelithiasis without evidence of cholecystitis. 2. Cirrhotic appearing liver as described. D/ / Farida Wilkerson MD / Farida Wilkerson MD Interpreting Provider: Farida Wilkerson MD - Imaging EKG: image reviewed (126bpm - SINUS TACHYCARDIA Electronically Signed On 2017 12:38:59 EDT by Augusto Macias) Anesthesia Exam Vital Signs Temp Pulse Resp BP Pulse Ox 01/18/18 11:40 98.7 F 106 16 124/72 99 01/18/18 07:37 97.4 F L 104 16 107/66 98 01/18/18 03:32 98.3 F 106 14 118/73 98 01/17/18 23:29 98.3 F 108 15 98/61 95 01/17/18 20:06 98.4 F 109 15 100/68 99 01/17/18 16:34 98.1 F 111 16 113/72 98 Intake and Output 01/17/18 01/18/18 01/18/18 23:59 07:59 15:59 Intake Total 1140 / 1140 270 / 270 0 / 0 Output Total 350 / 350 Balance 1140 / 1140 270 / 270 -350 / -350 Intake: IV Fluids 1020 / 1020 270 / 270 0.9 % Sodium Chloride 1,000 ML 1000 / 1000 @ 100 mls/hr IVC .Q10H STACY Rx#: [id number] Maxipime 2,000 MG In Water for 20 / 20 inj. (sterile) 20 ML @ 300 mls/ hr IVPB Q8H STACY Rx#:[id number] Vancocin 1,500 MG In 0.9 % 250 / 250 Sodium Chloride 250 ML @ 166.67 mls/hr IVPB Q12H STACY Rx#: [id number] Oral 120 / 120 0 / 0 Output: Catheter 350 / 350 Other: Meal Dinner NPO Percent of Meal Consumed 10% 100% Weight 82.1 kg Blood Glucose* 225 84 79 - HEENT Pupil (Motor): Pupils equal, EOMI Mallampati: III Teeth: Poor dentition Oral Opening: Greater than 3 - BRIDGE MECHANIC LOC: Oriented BRIDGE MECHANIC Motor: Normal RUE, Normal LUE, Normal RLE, Normal LLE, Normal Face BRIDGE MECHANIC Sensory: Normal: RUE, LUE, RLE, LLE, Face - Cardiac Rhythm: Regular Murmur: None - Pulmonary Breath Sounds: bilateral Clear Respiratory Effort: Symmetrical Anesthesia Assess/Plan ASA Score: 4 (Cirhhosis, DM, HTN, Metatastatic Germ Cell Tumor/Testicular Ca) Modified Pradip Scale for Level of Consciousness: Cooperative, oriented, and tranquil Anesthetic Plan: MAC Monitoring Plan: Standard Monitors Recovery Plan: Other Anes Supervising Prov Stmt: Pt seen, R&B Discussed, question answered and consent obtained. Justin Oleary MD
--- NOTE | 2018-01-18 13:44 | Gastroenterology Consult Note ---
<Bj Farah Lalo - Last Filed: 01/18/18 13:42> Date of Encounter: 01/18/18 Time of Encounter: 10:35 - Assessment and plan (1) Epigastric pain Current Visit: Yes Status: Acute Assessment and plan: Start PPI and plan for EGD today to r/o esophagitis, gastritis, duodenitis, PUD , MW tear, or AVM. Pt states he has had difficulty with IV sedation in the past , and "woke up" during previous scopes. (2) Liver cirrhosis Current Visit: No Status: Chronic Assessment and plan: MELD-Na 15, Child-Cantor class B. Recommend 2-4 BM daily, can use Lactulose if needed. Check AFP. Lifestyle Changes: 1. Total abstinence from alcohol including social drinking. 2. No smoking. 3. Gradual loss of weight. 4. Drink at least 3 cups of coffee due to its antioxidant effects in the liver, it reduces risk of HCC and advance fibrosis. 5. If needed, use less than 2 g/day of Tylenol (in divided doses). 6. Vaccination for Hep A, B, Pneumococcus if not already received and yearly influenza vaccination by PCP. 7. Avoid NSAIDS as can cause kidney damage. 8. Avoid benzodiazepines and other sedatives such as anti-histamines, narcotics etc. as can cause encephalopathy or confusion. 9. Take a late carbohydrate meal supplement as it reduces glucose production from protein breakdown and thus improves nutrition. 10. In cirrhosis, statins are safe to use and also improve portal hypertension and decrease risk of HCC. 11. Screening: o Hepatocellular cancer screening: US of liver and AFP every 6 months Qualifiers: Hepatic cirrhosis type: unspecified hepatic cirrhosis Ascites presence: unspecified Qualified Code(s): K74.60 - Unspecified cirrhosis of liver (3) Thrombocytopenia Current Visit: No Status: Resolved Assessment and plan: Secondary to cirrhosis. - Time Spent With Patient Total time spent is greater than 50% in coordination of care (as documented) at patient's floor/unit and/or counseling patient: GI History of Present Illness - Data of Consult Patient: new to practice Consult date: 01/18/18 Requesting Physician: Arun Ford MD - Consult Narrative Reason for consult: Epigastric pain History of present illness: Mr. Rey is a 42 year old male with PMHx of arthritis, cirrhosis s/p TIPS ( about 4 years ago at [facility]), testicular cancer, who presented to OSH ED with fever, nausea, vomiting, and intermittent chest pain. CT at outside hospital showed groundglass type opacities in the right upper lobe suggestive of infectious/inflammatory process, and a new left lung apex 8 mm soft tissue nodule. He was started on IV antibiotics. He has been unable to eat much due to nausea. RUQ US showed cholelithiasis without cholecystitis and cirrhosis. Patient also complains of dysphagia with solids for the past week. He denies any hematemesis, melena, or hematochezia. We have been consulted to evaluate epigastric pain. Procedures: EGD 09/28/2014 Dr. Edge: Grade II varices, hypertensive gastropathy, medium hiatal hernia. NSAIDs: None Anticoagulation: None Past Med Surg Social Fam HX - Past Medical History Medical history: arthritis, cancer, cirrhosis, diabetes, GERD, GI bleed, hypertension, other Additional medical history: neuropathy Psychiatric history: no psych history - Past Surgical History Surgical History: other Additional surgical history: left testicle removed - Social History Smoking Status: Never smoker Smokeless Tobacco Status: No Alcohol use: none Drug use: none - Family History Father Hx Family Cardiac Disorders: Yes (murrmur) Brother Living Status: Hx Family GI Disorders: Yes (Esophgeal) Maternal Grandmother Adopted: No Hx Family Endocrine Disorder: Yes (diabetic) - Gastrointestinal Gastrointestinal: Present: as per HPI - Constitutional Constitutional: as per HPI - EENT Eyes: as per HPI Ears: Present: as per HPI Nose, mouth and throat: Present: as per HPI - Cardiovascular Cardiovascular ROS: Present: as per HPI - Respiratory Respiratory IM: Present: as per HPI - Genitourinary Genitourinary: Absent: change in color, Urinary frequency - Neurological ROS Neurological GI: Present: as per HPI - Hematologic/Lymphatic Hematologic/Lymphatic pediatric: Present: as per HPI - Musculoskeletal Musculoskeletal ROS GI: Present: as per HPI - Integumentary Integumentary GI: Present: as per HPI - Psychiatric ROS Psychiatric GI: Present: as per HPI - Endocrine Endocrine IM: Present: as per HPI - Constitutional Vitals: Temp Pulse Resp BP Pulse Ox 98.7 F 106 16 124/72 99 01/18/18 11:40 01/18/18 11:40 01/18/18 11:40 01/18/18 11:40 01/18/18 11:40 General appearance: Present: cooperative, A&O X 3, no acute distress, answers questions appropriately - Head Head exam: Present: atraumatic, normocephalic - Eye Eye exam: Present: normal appearance, sclera anicteric - ENT ENT exam: Present: mucous membranes dry - Neck Neck exam general surgery: Present: normal inspection, trachea midline - Respiratory Respiratory exam: Present: CTAB. Absent: rales, rhonchi - Cardiovascular Cardiovascular exam: Present: RRR, +S1, +S2 - GI/Abdominal GI/Abdominal exam: Present: soft, no peritoneal signs. Absent: distended, firm , guarding, tenderness - Rectal Rectal exam: Present: deferred - Extremities Exam Extremities exam: Present: warm - Neurological Exam Neurological exam: Present: no focal deficits - Psychiatric Psychiatric exam: Present: normal affect, normal mood - Skin Skin exam: Present: dry, intact, normal color, warm Results - Labs CBC & Chem 7: 01/18/18 04:56 01/18/18 04:56 Labs: Last Result Calcium 7.9 mg/dL (8.6-10.3) L 01/18/18 04:56 Troponin I < 0.03 ng/mL (< 0.04) 01/15/18 23:05 Entire Visit Hgb 10.4 g/dL (12.9-16.9) L 01/18/18 04:56 Hct 30.2 % (37.5-50.1) L 01/18/18 04:56 PT 17.1 Seconds (9.4-12.1) H 01/18/18 04:56 Total Bilirubin 2.0 mg/dL (0.3-1.0) H 01/18/18 04:56 AST 26 Units/L (13-39) 01/18/18 04:56 ALT 13 Units/L (7-52) 01/18/18 04:56 - ABG ABG results: PT/INR, D-dimer PT 17.1 Seconds (9.4-12.1) H 01/18/18 04:56 - Impressions Impressions Gallbladder Ultrasound 01/18/18 08:00 IMPRESSION: 1. Cholelithiasis without evidence of cholecystitis. 2. Cirrhotic appearing liver as described. D/ / Farida Wilkerson MD / Farida Wilkerson MD Interpreting Provider: Farida Wilkerson MD Consult Discharge Plan - Plan Referrals: Tripp Angulo DO [Primary Care Provider] - <Clyde Edge - Last Filed: 01/18/18 17:30> Date of Encounter: 01/18/18 Time of Encounter: 14:00 - Time Spent With Patient Total time spent is greater than 50% in coordination of care (as documented) at patient's floor/unit and/or counseling patient: GI History of Present Illness - Data of Consult Requesting Physician: Arun Ford MD - Consult Narrative History of present illness: Mr. Rey is a 42 year old male - Constitutional Vitals: Temp Pulse Resp BP Pulse Ox 98.5 F 104 17 136/80 100 01/18/18 16:33 01/18/18 16:33 01/18/18 16:33 01/18/18 16:33 01/18/18 16:33 Results - Labs CBC & Chem 7: 01/18/18 04:56 01/18/18 04:56 Labs: Last Result Calcium 7.9 mg/dL (8.6-10.3) L 01/18/18 04:56 Troponin I < 0.03 ng/mL (< 0.04) 01/15/18 23:05 Entire Visit Hgb 10.4 g/dL (12.9-16.9) L 01/18/18 04:56 Hct 30.2 % (37.5-50.1) L 01/18/18 04:56 PT 17.1 Seconds (9.4-12.1) H 01/18/18 04:56 Total Bilirubin 2.0 mg/dL (0.3-1.0) H 01/18/18 04:56 AST 26 Units/L (13-39) 01/18/18 04:56 ALT 13 Units/L (7-52) 01/18/18 04:56 - ABG ABG results: PT/INR, D-dimer PT 17.1 Seconds (9.4-12.1) H 01/18/18 04:56 - Impressions Impressions Gallbladder Ultrasound 01/18/18 08:00 IMPRESSION: 1. Cholelithiasis without evidence of cholecystitis. 2. Cirrhotic appearing liver as described. D/ / Farida Wilkerson MD / Farida Wilkerson MD Interpreting Provider: Farida Wilkerson MD - Attending Attestation I have personally performed a face to face evaluation on this patient. I have reviewed and agree with the care plan. History and Exam by me shows: Patient seen. Patient with multiple comorbidities including cirrhosis status post TIPS, psoriasis, metastatic malignant germ cell tumor, now with upper abdominal pain. CT chest showing lower esophageal thickening. Recommendation: EGD to rule out gastric/esophageal etiology for his upper abdominal pain
[2018-01-18] MEDS ORDERED: Aminoglycoside Consult 1 EACH MC ONE (13:59)
[2018-01-18] MEDS ORDERED: Tetracaine/Benzocaine/Butamben 200MG/SPRAY (100SPY/BOT) MM ONE (15:03)
[2018-01-18] MEDS ORDERED: Simethicone 40 MG/0.6 ML MLS IR ONE (15:03)
--- NOTE | 2018-01-18 15:25 | Anesthesia Evaluation Post Op ---
Date of Encounter: 01/18/18 Time of Encounter: 15:23 - Vital Signs Vital Signs: Vital Signs/O2 Sat/Glucose, Most Recent Temp Pulse Resp BP Pulse Ox 98.3 F 115 18 136/74 100 01/18/18 14:14 01/18/18 14:14 01/18/18 14:14 01/18/18 14:14 01/18/18 14:14 Blood Glucose* 79 - Lungs Lungs: Clear Ascult./Percussion - Airway Airway: Non-obstructed - Cardiovascular Regular Rate, Baseline Rhythm (Sinus Tach. Has been ST on the floor as well.) - Mental Status Mental Status: Alert & Oriented, Answers Appropriately - Pain Pain Scale: 0 Pain Scale used: Numeric (1 - 10) - Nausea Vomiting Nausea Vomiting: Not Present - Hydration Hydration: NPO, Samuel catheter - Discharge PostOp Status: Transfer Patient to floor
[2018-01-18] MEDS: 0.9 % Sodium Chloride 1,000 ML IVC SCH ×2 (15:58→17:08)
[2018-01-18] MEDS: Cefepime HCl 1,000 MG in Water for inj. (sterile) 20 ML 10 ML IVP SCH (17:08)
[2018-01-18] MEDS: Ondansetron ODT 4 MG TAB.RAPDIS SL PRN (20:30)
[2018-01-18] MEDS: *HR* OxyCODONE Immed Rel 15 MG TABLET PO PRN (20:30)
[2018-01-19] MEDS: 0.9 % Sodium Chloride 1,000 ML IVC SCH (01:37)
[2018-01-19] MEDS: Cefepime HCl 1,000 MG in Water for inj. (sterile) 20 ML 10 ML IVP SCH ×2 (02:21→09:14)
[2018-01-19] MEDS: Metoclopramide 10 MG/2 ML VIAL IVP PRN (02:27)
[2018-01-19 04:54] LABS: Mean Corpuscular HGB Conc 35.1 g/dL (31.6-35.5); Red Cell Distribution Width 16.3 % (11.5-14.5)
[2018-01-19 04:57] LABS: Basophils % 0.6 %; Eosinophils # 0.1 K/mcL (0.0-0.6); Eosinophils % 3.8 %; Hematocrit 30.2 % (37.5-50.1); Hemoglobin 10.6 g/dL (12.9-16.9); Immature Granulocytes % 0.3 % (0-4); Immature Platelets 10.9 % (1.1-6.1); Lymphocytes # 0.5 K/mcL (0.6-4.6); Lymphocytes % 15.2 %; Mean Corpuscular Hemoglobin 31.9 pg (28.0-33.3); Mean Platelet Volume 13.6 fL (9.4-12.4); Monocytes # 0.4 K/mcL (0.0-1.3); Monocytes % 13.3 %; Neutrophils # 2.1 K/mcL (1.6-8.9); Red Blood Count 3.32 M/mcL (4.19-5.50); Segmented Neutrophils % 66.8 %
[2018-01-19 05:05] LABS: Platelet Count 39 K/mcL (140-400)
[2018-01-19 05:18] LABS: BUN/Creatinine Ratio 24 (6-26); Blood Urea Nitrogen 6 mg/dL (6-20); Calcium 7.9 mg/dL (8.6-10.3); Carbon Dioxide 24 mEq/L (23-29); Chloride 107 mEq/L (98-107); Glucose 161 mg/dL (70-105); Osmolality,Calculated 281 (280-300); Potassium 3.8 mEq/L (3.5-5.1); Sodium 135 mEq/L (136-145); eGFR For Non-African Americans > 60 (> 60)
--- NOTE | 2018-01-19 08:53 | Discharge Summary ---
<Juan Pablo Queen - Last Filed: 01/19/18 09:12> - NOTES TO OUTPATIENT PROVIDER Notes to Outpatient Provider: CT demonstrated pneumonia and he was started on Cefepime given his recent neutropenic fever. Will be going home on Augmentin and Fluconazole as he had some candidal lesions in his mouth. EGD showed severe esophagitis with cytology pending. GI recommends BID PPI and Carafate. CT showed left lung apex nodule and he may need PET scan as outpatient Orders not resulted at time of discharge: Pending orders 01/18/18 13:00 AFP Tumor Marker Non- Routine 01/18/18 15:15 Surgical Pathology [PTH] Routine Date of Encounter: 01/19/18 Time of Encounter: 08:30 - Discharge Diagnosis (1) Sepsis Priority: Primary Status: Acute Qualifiers: Sepsis type: sepsis due to unspecified organism Qualified Code(s): A41.9 - Sepsis, unspecified organism (2) Pneumonia Priority: Secondary Status: Acute Qualifiers: Qualified Code(s): J18.9 - Pneumonia, unspecified organism (3) Abdominal discomfort Priority: Secondary Status: Acute (4) Chest pain Priority: Secondary Status: Acute Qualifiers: Chest pain type: unspecified Qualified Code(s): R07.9 - Chest pain, unspecified (5) Diabetes mellitus, type 2 Priority: Secondary Status: Chronic Qualifiers: Diabetes mellitus adjunct faculty for medical terminology insulin use: with senior care use Diabetes mellitus complication status: with neurologic complications Diabetes mellitus complication detail: with unspecified neuropathy Qualified Code(s): E11.40 - Type 2 diabetes mellitus with diabetic neuropathy, unspecified; Z79.4 - [facility] (current) use of insulin (6) Liver cirrhosis Priority: Secondary Status: Chronic Qualifiers: Hepatic cirrhosis type: unspecified hepatic cirrhosis Ascites presence: unspecified Qualified Code(s): K74.60 - Unspecified cirrhosis of liver (7) Testicular cancer Priority: Secondary Status: Chronic Qualifiers: Descendance of testis: unspecified Laterality: unspecified laterality Qualified Code(s): C62.90 - Malignant neoplasm of unspecified testis, unspecified whether descended or undescended Hospital course: Mr. Rey is a 42 year old male with past mental history of cirrhosis status post TIPS, psoriasis, metastatic malignant germ cell tumor, presented to the [place] ED with fever and N/V. CTA at [place] demonstrated RUL opacities concerning for pneumonia and he had leukocytosis and tachycardia and met sepsis criteria. Given that he had recent admission for neutropenic fever in setting of recent chemo and had Klebsiella bacteremia, he was started on Vancomycin and Cefepime. He was found to have oral lesions concerning for abdulaziz and he was started on Micafungin. He did have some abdominal discomfort especially with food and GI was consulted and performed EGD. It showed severe erosive esophagitis along with non-bleeding ulcers and cytology was collected. He was recommended to start on BID PPI and Carafate. Prescriptions have been given for those along with 7 day course of Augmentin and Fluconazole. He did have a lung nodule seen on CTA on left apex concerning for malignancy and it was recommended he follow up with oncology for possible PET scan. Discharge discussed with: patient, family, nurse, other - Time Spent with Patient Total time spent providing and/or coordinating discharge services: Greater than 30 minutes - Discharge Medications Prescriptions: Amoxicillin/Clavulanate [Augmentin] 875 mg PO BIDWM #14 tablet Fluconazole [Diflucan] 100 mg PO DAILY #7 tablet Omeprazole [PriLOSEC] 40 mg PO BID #60 cap Sucralfate [Carafate] 1 gm PO QID #120 oral.susp Home Medications: Insulin DETEMIR [Levemir Flextouch] 45 - 60 unit SQ BID 01/10/15 [History] Rifaximin [Xifaxan] 550 mg PO BID 01/10/15 [History] Vitamin E 400 unit PO DAILY 01/10/15 [History] Apremilast [Otezla] 30 mg PO BID 11/04/17 [History] Calcium Acetate [Phos-LO] 1,334 mg PO TIDWM 11/04/17 [History] Lactulose [Enulose] 15 ml PO TID 11/04/17 [History] Loratadine [Allergy Relief] 10 mg PO DAILY 11/04/17 [History] Lubiprostone [Amitiza] 24 mcg PO BID 11/04/17 [History] Ondansetron HCl 8 mg PO Q8H 11/04/17 [History] Polyethylene Glycol 3350 [MiraLAX] 17 gm PO DAILY 11/04/17 [History] Spironolactone [Aldactone] 100 mg PO DAILY 11/04/17 [History] Zinc Sulfate 220 mg PO TID 11/04/17 [History] FLUoxetine HCl [Fluoxetine HCl] 10 mg PO DAILY 11/27/17 [History] Pregabalin [Lyrica] 200 mg PO BID 11/27/17 [History] Lidocaine/Prilocaine [Emla] 1 appl TP AD #30 gm 12/07/17 [Rx] Loperamide [Imodium] 2 mg PO AD PRN #30 capsule 12/07/17 [Rx] Magic Mouthwash 5 ml PO Q4H PRN #240 ml 12/07/17 [Rx] Nystatin [Nystatin Suspension] 100,000 unit PO TID #200 oral.susp 12/21/17 [Rx] 0.9 % Sodium Chloride 1,000 ml IV CONT #1000 ml 12/24/17 [Rx] Amitriptyline [Elavil] 25 mg PO HS 12/26/17 [History] Ferrous Sulfate [Iron] 325 mg PO DAILY 12/26/17 [History] Insulin ASPART [Novolog] 5 - 20 unit SQ TIDWM 12/26/17 [History] Metoclopramide [Reglan] 10 mg PO Q8H PRN 12/26/17 [History] Pantoprazole Sodium [Protonix] 40 mg PO DAILY 12/26/17 [History] metFORMIN [Glucophage] 500 mg PO BIDWM 12/26/17 [History] Megestrol Acetate [Megace] 800 mg PO DAILY #400 udc 01/11/18 [Rx] OxyCODONE Immed Rel [Roxicodone 15 MG] 15 mg PO Q6HR PRN 14 Days #56 tablet 11/23 [Rx] Promethazine [Phenergan] 25 mg PO Q8HR #60 tablet 01/15/18 [Rx] Amoxicillin/Clavulanate [Augmentin] 875 mg PO BIDWM #14 tablet 01/19/18 [Rx] Fluconazole [Diflucan] 100 mg PO DAILY #7 tablet 01/19/18 [Rx] Omeprazole [PriLOSEC] 40 mg PO BID #60 cap 01/19/18 [Rx] Sucralfate [Carafate] 1 gm PO QID #120 oral.susp 01/19/18 [Rx] Allergies/Adverse Reactions: 3 Allergy/AdvReac Type Severity Reaction Status Date / Time morphine Allergy Itching Verified 12/06/17 15:45 Date of admission: 01/15/18 22:52 Primary care physician: Tripp Angulo DO Consults: 01/18/18 10:24 Consult to Gastroenterology [CONS] Routine Consulting Provider: [facility] Reason for Consult: Dysphagia / Esophagitis Time Notified: 10:25 Call Completed: Yes Discharging clinician: Juan Pablo Queen Anticipated date of discharge: 01/19/18 - Constitutional Vitals: Temp Pulse Resp BP Pulse Ox 98.1 F 103 17 108/66 98 01/19/18 07:44 01/19/18 07:44 01/19/18 07:44 01/19/18 07:44 01/19/18 07:44 General appearance: Present: cooperative, pleasant, no acute distress, answers questions appropriately Exam: General: Patient is a 42yo white male, appears older than his stated age. Conversant, No Apparent Distress, able to speak in full sentences and follow commands Neck: No JVD, trachea midline HEENT: PERRL, normocephalic, atraumatic, patchy hair secondary to chemotherapy Cardiac: Tachycardic, regular Rhythm, Normal S1 and S2, No murmurs appreciated Pulmonary: Decreased breath sounds in RUL, No Wheezes, Rales, or Rhonchi, Not in respiratory distress on 1L NC Abdomen: soft, distended, tenderness periumbilically R>L, no murphys or mcburneys tenderness Neuro: Alert and responsive, No focal deficits noted Vascular: Normal capillary refill Skin: No rashes noted on visualized skin Musculoskeletal: No Chest Wall Tenderness Extremities: No Clubbing, No Cyanosis, No Edema, Normal Pulses Psych: Normal mood, pleasant, conversant - Head Head exam: Present: atraumatic, normocephalic - Eye Eye exam: Present: PERRL, conjuntiva pink, sclera anicteric - Neck Neck exam general surgery: Present: supple, trachea midline. Absent: lymphadenopathy - Respiratory Respiratory exam: Present: CTAB. Absent: accessory muscle use, rales, rhonchi, wheezes - Cardiovascular Cardiovascular exam: Present: RRR, +S1, +S2. Absent: diastolic murmur, gallop, rubs, systolic murmur - GI/Abdominal GI/Abdominal exam: Present: normal bowel sounds, soft, tenderness, no peritoneal signs. Absent: distended - Extremities Exam Extremities exam: Present: warm, radial pulses palpable and symmetrical. Absent : calf tenderness, cyanotic, pedal edema - Neurological Exam Neurological exam: Present: alert, no focal deficits. Absent: facial droop, speech deficit - Skin Skin exam: Present: dry, intact - Patient Status Disposition: Home, Self-Care Condition: Fair Functional capacity at discharge: independent ambulation Overall status at discharge: patient is progressing back to baseline - Discharge Instructions Instructions: Sucralfate (By mouth), Omeprazole (By mouth), Amoxicillin (By mouth), Viral Pneumonia (DC), Acute Nausea and Vomiting (DC) Follow Up With: Kary Urbina MD [Partnered Physician] - (patient whave treatment tomorrow and they will see him by then) Tripp Angulo DO [Primary Care Provider] - 01/27/18 8:45 am (Please follow up as schedule with Alexsandra Salas) Additional Instructions: Please follow up with your PCP and Oncologist within 1-2 weeks of discharge - Diet and Activity Activity: increase activity as tolerated Diet: advance to your usual diet <Mitchell Martinez - Last Filed: 01/19/18 17:18> Orders not resulted at time of discharge: Pending orders 01/18/18 13:00 AFP Tumor Marker Non- Routine 01/18/18 15:15 Surgical Pathology [PTH] Routine Date of Encounter: 01/19/18 - Discharge Diagnosis (1) Diabetes mellitus, type 2 Status: Chronic Qualifiers: Diabetes mellitus senior care insulin use: with adjunct faculty for medical terminology use Diabetes mellitus complication status: with neurologic complications Diabetes mellitus complication detail: with unspecified neuropathy Qualified Code(s): E11.40 - Type 2 diabetes mellitus with diabetic neuropathy, unspecified; Z79.4 - adjunct faculty for medical terminology (current) use of insulin (2) Testicular cancer Status: Chronic Qualifiers: Descendance of testis: unspecified Laterality: unspecified laterality Qualified Code(s): C62.90 - Malignant neoplasm of unspecified testis, unspecified whether descended or undescended (3) Liver cirrhosis Status: Chronic Qualifiers: Hepatic cirrhosis type: unspecified hepatic cirrhosis Ascites presence: unspecified Qualified Code(s): K74.60 - Unspecified cirrhosis of liver (4) DVT prophylaxis Status: Acute (5) Sepsis Status: Inactive Qualifiers: Sepsis type: sepsis due to unspecified organism Qualified Code(s): A41.9 - Sepsis, unspecified organism (6) Chest pain Status: Acute Qualifiers: Chest pain type: unspecified Qualified Code(s): R07.9 - Chest pain, unspecified Hospital course: Mr. Rey is a 42 year old male - Time Spent with Patient Total time spent providing and/or coordinating discharge services: Date of admission: 01/15/18 22:52 Primary care physician: Tripp Angulo DO Consults: 01/18/18 10:24 Consult to Gastroenterology [CONS] Routine Consulting Provider: [facility] [place] Reason for Consult: Dysphagia / Esophagitis Time Notified: 10:25 Call Completed: Yes - Constitutional Vitals: Temp Pulse Resp BP Pulse Ox 98.1 F 106 17 121/73 97 01/19/18 11:49 01/19/18 11:49 01/19/18 11:49 01/19/18 11:49 01/19/18 11:49 - Attending Attestation I examined this patient and my medical decision-making was reviewed with the Resident Physician Dr. Lauren. I agree with the documented findings, disposition and treatment plan as described except to the extent set forth below.
[2018-01-19] MEDS: Nystatin SUSP 5 ML UD.LIQ PO SCH ×2 (09:13→12:09)
[2018-01-19] MEDS: Insulin DETEMIR 100 UNIT/ML X5UNITS SQ SCH (09:15)
[2018-01-19] MEDS: Micafungin 100 MG in 0.9 % Sodium Chloride Mini Bag 100 ML IVPB SCH (09:15)
[2018-01-19] MEDS: Insulin LISPRO 300 UNITS/3 ML VIAL SQ SCH ×2 (09:16→12:09)
[2018-01-19] MEDS: Ondansetron ODT 4 MG TAB.RAPDIS SL PRN (09:25)
[2018-01-19 11:51] VITALS: BP 121/73
== END 2018-01-19 13:24 | disposition home or self-care (01) | DRG 871 ==
LOC: 2ANU
PROVIDERS: ADMIT Family Medicine; ATTEND Family Medicine
PROC: ENDOEBX (2018-01-18 13:30)

== ENCOUNTER 2018-01-22 12:51 | Inpatient (IN) ==
--- NOTE | 2018-01-22 13:00 | Emergency Department Note ---
Disposition Clinical Impression: Hyperammonemia, Elevated LFTs, Hyperglycemia, Hyperkalemia, Confusion Disposition: Admitted As Inpatient Condition: Fair Referrals: Tripp Angulo DO [Primary Care Provider] - Forms: Work/School Release, ED Satisfaction Letter Time of Disposition: 15:42 General Adult HPI - General Chief complaint: ED General Medical Stated complaint: hyperglycemia Time Seen by Provider: 01/22/18 12:59 Source: patient Mode of arrival: ambulatory Limitations: no limitations Nursing Notes Reviewed: Yes Vital Signs Reviewed: Yes - History of Present Illness HPI Narrative: Patient is a 42-year-old male with past medical history of previous left testicular cancer with orchiectomy, cirrhosis and takes lactulose 15 mL 3 times a day. Also has a history of diabetes, takes insulin. Currently receives chemotherapy through a right chest port weekly due to return of testicular cancer. He presents today via EMS from [facility], [place] due to confusion. Patient is accompanied by mother who states that the patient has been intimately confused the past few days. He was told to hold his insulin today prior to having chemotherapy. When they checked his blood sugar at the [facility], [place], his blood sugar was in the 500s. They were concerned that blood sugar could be affecting mental status and sent him here for further eval. However, mother states that the patient has acted similarly in the past when his ammonia levels are high. Patient denies any missed doses of lactulose within the past week. He does himself notes that he feels confused, he is able to tell me his name and his mother is present is not able to tell me where he is or what year it is. He denies any falls, any chest pain, shortness of breath, productive cough, fevers, nausea, vomiting, abdominal pain, dysuria, hematuria. Mother confirms this at bedside. - Related Data Home Medications Medication Instructions Recorded Confirmed Insulin DETEMIR [Levemir Flextouch] 45 - 60 unit SQ BID 01/10/15 01/16/18 Rifaximin [Xifaxan] 550 mg PO BID 01/10/15 01/16/18 Vitamin E 400 unit PO DAILY 01/10/15 01/16/18 Apremilast [Otezla] 30 mg PO BID 11/04/17 01/16/18 Calcium Acetate [Phos-LO] 1,334 mg PO TIDWM 11/04/17 01/16/18 Lactulose [Enulose] 15 ml PO TID 11/04/17 01/16/18 Loratadine [Allergy Relief] 10 mg PO DAILY 11/04/17 01/16/18 Lubiprostone [Amitiza] 24 mcg PO BID 11/04/17 01/16/18 Ondansetron HCl 8 mg PO Q8H 11/04/17 01/16/18 Polyethylene Glycol 3350 [MiraLAX] 17 gm PO DAILY 11/04/17 01/16/18 Spironolactone [Aldactone] 100 mg PO DAILY 11/04/17 01/16/18 Zinc Sulfate 220 mg PO TID 11/04/17 01/16/18 FLUoxetine HCl [Fluoxetine HCl] 10 mg PO DAILY 11/27/17 01/16/18 Pregabalin [Lyrica] 200 mg PO BID 11/27/17 01/16/18 Amitriptyline [Elavil] 25 mg PO HS 12/26/17 01/16/18 Ferrous Sulfate [Iron] 325 mg PO DAILY 12/26/17 01/16/18 Insulin ASPART [Novolog] 5 - 20 unit SQ TIDWM 12/26/17 01/16/18 Metoclopramide [Reglan] 10 mg PO Q8H PRN 12/26/17 01/16/18 Pantoprazole Sodium [Protonix] 40 mg PO DAILY 12/26/17 01/16/18 metFORMIN [Glucophage] 500 mg PO BIDWM 12/26/17 01/16/18 Previous Rx's Medication Instructions Recorded Lidocaine/Prilocaine [Emla] 1 appl TP AD #30 gm 12/07/17 Loperamide [Imodium] 2 mg PO AD PRN #30 capsule 12/07/17 Magic Mouthwash 5 ml PO Q4H PRN #240 ml 12/07/17 Nystatin [Nystatin Suspension] 100,000 unit PO TID #200 oral.susp 12/21/17 0.9 % Sodium Chloride 1,000 ml IV CONT #1000 ml 12/24/17 Megestrol Acetate [Megace] 800 mg PO DAILY #400 udc 01/11/18 Promethazine [Phenergan] 25 mg PO Q8HR #60 tablet 01/15/18 Amoxicillin/Clavulanate [Augmentin] 875 mg PO BIDWM #14 tablet 01/19/18 Fluconazole [Diflucan] 100 mg PO DAILY #7 tablet 01/19/18 Omeprazole [PriLOSEC] 40 mg PO BID #60 cap 01/19/18 Sucralfate [Carafate] 1 gm PO QID #120 oral.susp 01/19/18 Sucralfate [Carafate] 1 gm PO TID #90 tablet 01/20/18 OxyCODONE Immed Rel [Roxicodone 5 5 mg PO ONCE 1 Days #1 tablet 01/21/18 MG] Allergies Allergy/AdvReac Type Severity Reaction Status Date / Time morphine Allergy Itching Verified 12/06/17 15:45 All systems ED: reviewed and negative except as stated. Constitutional: Denies: fever Cardiovascular: Denies: chest pain Respiratory: Denies: cough, dyspnea Gastrointestinal: Denies: abdominal pain, nausea, vomiting, diarrhea Genitourinary: Denies: urgency, dysuria Integumentary: Denies: rash Neurological: Denies: headache, weakness, numbness Past Medical History - Past Medical History Attestation: Yes The following information was validated with the patient. Source: patient Medical history: Reports: arthritis, cancer, cirrhosis, diabetes, GERD, GI bleed , hypertension, other Surgical history: Reports: other Psychiatric history: Reports: no psych history - Social History Smoking Status: Never smoker Smokeless Tobacco Status: No Alcohol use: Reports: none Drug use: Reports: none Physical Exam - General Limitations: no limitations General appearance: alert, in no apparent distress - Head Head exam: atraumatic, normocephalic, normal inspection - Eye Eye exam: Present: normal appearance, PERRL, EOMI - ENT ENT exam: normal exam, normal oropharynx, mucous membranes moist - Neck Neck exam: Present: normal inspection, full ROM, trachea midline - Chest Chest inspection: Present: symmetric chest wall rise, other (Right chest port, no associated pus drainage or erythema) - Respiratory Respiratory exam: Present: normal lung sounds bilaterally - Cardiovascular Cardiovascular exam: Present: normal rhythm, tachycardia, normal heart sounds - Abdominal Exam Abdominal exam: Present: soft, Non-Tender. Absent: tenderness, distention, guarding, rebound, rigidity - Extremities Exam Extremities exam: Present: normal inspection, full ROM. Absent: tenderness, pedal edema - Neurological Exam Neurological exam: Present: alert, CN II-XII intact. Absent: motor sensory deficit - Expanded Neurological Exam Patient oriented to: Present: person. Absent: place, time Speech: Present: fluid speech Cranial nerves: EOM function (II, III, IV, ): Normal, facial sensation (V): Normal, facial palsy (VII): Normal, spinal accessory function (XI): Normal Cerebellar function: finger to nose: Normal Motor strength - LUE: 5/5 Motor strength - RUE: 5/5 Motor strength - LLE: 5/5 Motor strength - RLE: 5/5 Sensory exam upper extremity: light touch: Normal Sensory exam lower extremity: light touch: Normal Coma Scale Eye Opening: Spontaneous Coma Scale Motor Response: Obeys Commands Coma Scale Verbal Response: Confused Coma Scale Total: 14 - Psychiatric Psychiatric exam: Present: normal affect, normal mood - Skin Skin exam: Present: warm, dry, intact, normal color Course Course Narrative: No focal neuro deficits on exam. Patient is very alert but is only oriented to person but not place or time. Family is very adamant that this is how he presents with high ammonia levels. We will go ahead and check LFTs, ammonia, urinalysis, chest x-ray to assess for any other etiologies for confusion. We will also obtain DKA labs due to have blood glucose glucose of 500s on presentation. We will start normal saline bolus. 15:46 patient has hyperammonemia above baseline. Glucose in the 600s. DKA labs negative, metabolic gap is 6. Patient has hyperkalemia with a potassium of 5.8. EKG ordered to assess for any EKG changes. Patient was given 10 units of IV insulin that while up with hyperglycemia and hyperkalemia. LFTs and bilirubin trended back and near baseline for the patient. I discussed the case with the hospitalist, he agreed with giving the patient a dose of lactulose here in the department. We will admit due to confusion and the above lab abnormalities. Vital Signs Temperature 98.5 F 01/22/18 12:57 Pulse Rate 114 01/22/18 12:57 Respiratory Rate 18 01/22/18 12:57 Blood Pressure 132/73 01/22/18 12:57 O2 Sat by Pulse Oximetry 97 01/22/18 12:57 Temperature 98.5 F 01/22/18 12:57 Pulse Rate 94 01/22/18 14:55 Respiratory Rate 20 01/22/18 14:55 Blood Pressure 138/75 01/22/18 14:55 O2 Sat by Pulse Oximetry 97 01/22/18 14:56 Oxygen Delivery Oxygen Delivery Nasal Cannula Medical Decision Making - MDM Narrative Medical decision making narrative: No focal neuro deficits on exam. Patient is very alert but is only oriented to person but not place or time. Family is very adamant that this is how he presents with high ammonia levels. We will go ahead and check LFTs, ammonia, urinalysis, chest x-ray to assess for any other etiologies for confusion. We will also obtain DKA labs due to have blood glucose glucose of 500s on presentation. We will start normal saline bolus. 15:46 patient has hyperammonemia above baseline. Glucose in the 600s. DKA labs negative, metabolic gap is 6. Patient has hyperkalemia with a potassium of 5.8. EKG ordered to assess for any EKG changes. Patient was given 10 units of IV insulin that while up with hyperglycemia and hyperkalemia. LFTs and bilirubin trended back and near baseline for the patient. I discussed the case with the hospitalist, he agreed with giving the patient a dose of lactulose here in the department. We will admit due to confusion and the above lab abnormalities. - Medical Records Medical records reviewed: Yes I reviewed the patient's medical records. - Lab Data Lab results reviewed: Yes I reviewed the patient's lab results. Result diagrams: 01/22/18 13:18 01/22/18 13:18 Lab Results 01/22/18 01/22/18 01/22/18 Range/Units 13:18 13:18 13:18 WBC 5.9 (4.3-11.1) K/mcL RBC 3.82 L (4.19-5.50) M/mcL Hgb 12.3 L (12.9-16.9) g/dL Hct 35.5 L (37.5-50.1) % MCV 92.9 (83.0-100.0) fL MCH 32.2 (28.0-33.3) pg MCHC 34.6 (31.6-35.5) g/dL RDW 17.1 H (11.5-14.5) % Plt Count 35 L (140-400) K/mcL Immature Gran % 0.3 (0-4) % Seg Neutrophils % 94.4 % Lymphocytes % 3.4 % Monocytes % 1.7 % Eosinophils % 0.0 % Basophils % 0.2 % Neutrophils # 5.6 (1.6-8.9) K/mcL Lymphocytes # 0.2 L (0.6-4.6) K/mcL Monocytes # 0.1 (0.0-1.3) K/mcL Eosinophils # 0.0 (0.0-0.6) K/mcL Basophils # 0.0 (0.0-0.2) K/mcL Immature Plt Fraction 14.1 H (1.1-6.1) % VBG pH (7.32-7.42) pH Units VBG pCO2 (41-51) mmHg VBG pO2 (25-50) mmHg VBG HCO3 (21-27) mEq/L Sodium 131 L (136-145) mEq/L Potassium 5.8 H (3.5-5.1) mEq/L Chloride 104 (98-107) mEq/L Carbon Dioxide 21 L (23-29) mEq/L BUN 17 (6-20) mg/dL Creatinine 0.52 L (0.70-1.30) mg/dL Est GFR ( Amer) > 60 (> 60) Est GFR (Non-Af Amer) > 60 (> 60) BUN/Creatinine Ratio 33 H (6-26) Glucose 620 H* (70-105) mg/dL Calculated Osmolality 303 H (280-300) Calcium 9.0 (8.6-10.3) mg/dL Total Bilirubin 2.6 H (0.3-1.0) mg/dL Direct Bilirubin 0.7 H (0.0-0.2) mg/dL Indirect Bilirubin 1.9 H (0.0-1.2) mg/dL AST 29 (13-39) Units/L ALT 24 (7-52) Units/L Alkaline Phosphatase 171 H (34-104) Units/L Ammonia (16-53) mcmol/L Serum Total Protein 6.3 L (6.4-8.9) g/dL Albumin 3.0 L (3.5-5.7) g/dL Globulin 3.3 (2.4-3.5) g/dL Albumin/Globulin Ratio 0.9 L (1.1-2.2) Beta-Hydroxybutyric Acd 0.26 (0.02-0.27) mmol/L Urine Color (Yellow) Urine Clarity (Clear) Urine pH (5.0-8.0) pH Units Ur Specific [place] (1.010-1.025) Urine Protein (Neg-Trace) mg/dL Urine Glucose (UA) (Normal) mg/dL Urine Ketones (Negative) mg/dL Urine Blood (Negative) Urine Nitrite (Negative) Urine Bilirubin (Negative) Urine Urobilinogen (Normal) mg/dL Ur Leukocyte Esterase (Negative) Ur Culture Indicated? (NO) 01/22/18 01/22/18 01/22/18 Range/Units 13:18 13:34 14:57 WBC (4.3-11.1) K/mcL RBC (4.19-5.50) M/mcL Hgb (12.9-16.9) g/dL Hct (37.5-50.1) % MCV (83.0-100.0) fL MCH (28.0-33.3) pg MCHC (31.6-35.5) g/dL RDW (11.5-14.5) % Plt Count (140-400) K/mcL Immature Gran % (0-4) % Seg Neutrophils % % Lymphocytes % % Monocytes % % Eosinophils % % Basophils % % Neutrophils # (1.6-8.9) K/mcL Lymphocytes # (0.6-4.6) K/mcL Monocytes # (0.0-1.3) K/mcL Eosinophils # (0.0-0.6) K/mcL Basophils # (0.0-0.2) K/mcL Immature Plt Fraction (1.1-6.1) % VBG pH 7.45 H (7.32-7.42) pH Units VBG pCO2 33 L (41-51) mmHg VBG pO2 194 H (25-50) mmHg VBG HCO3 23 (21-27) mEq/L Sodium (136-145) mEq/L Potassium (3.5-5.1) mEq/L Chloride (98-107) mEq/L Carbon Dioxide (23-29) mEq/L BUN (6-20) mg/dL Creatinine (0.70-1.30) mg/dL Est GFR ( Amer) (> 60) Est GFR (Non-Af Amer) (> 60) BUN/Creatinine Ratio (6-26) Glucose (70-105) mg/dL Calculated Osmolality (280-300) Calcium (8.6-10.3) mg/dL Total Bilirubin (0.3-1.0) mg/dL Direct Bilirubin (0.0-0.2) mg/dL Indirect Bilirubin (0.0-1.2) mg/dL AST (13-39) Units/L ALT (7-52) Units/L Alkaline Phosphatase (34-104) Units/L Ammonia 102 H (16-53) mcmol/L Serum Total Protein (6.4-8.9) g/dL Albumin (3.5-5.7) g/dL Globulin (2.4-3.5) g/dL Albumin/Globulin Ratio (1.1-2.2) Beta-Hydroxybutyric Acd (0.02-0.27) mmol/L Urine Color Yellow (Yellow) Urine Clarity Clear (Clear) Urine pH 6.0 (5.0-8.0) pH Units Ur Specific [place] > 1.030 H (1.010-1.025) Urine Protein Negative (Neg-Trace) mg/dL Urine Glucose (UA) >=1000 H (Normal) mg/dL Urine Ketones Negative (Negative) mg/dL Urine Blood Negative (Negative) Urine Nitrite Negative (Negative) Urine Bilirubin Negative (Negative) Urine Urobilinogen Normal (Normal) mg/dL Ur Leukocyte Esterase Negative (Negative) Ur Culture Indicated? NO (NO) - Radiology Data Radiology results reviewed: Yes I reviewed the patient's radiology results. Chest X-Ray 01/22/18 13:01 IMPRESSION: No acute cardiopulmonary disease. D/ / 01/22/2018 13:25:49 [facility] Interpreting Provider: Mohamud Gillette MD [facility] - [facility] Situation: Demographics, MOA Background: Presenting Complaint, Relevant PMH, Meds, & Allergies Assessment: Vital Signs, Course and respsone to treatment, Exam Concerns, Patient/Family Expectation, Pertinant Lab Results Recommendation: Barrier(s) to disposition, Recommendation based on pending studies, treatments, or consults [facility] Report Given to: Dr. Queen
--- NOTE | 2018-01-22 13:09 | Emergency Department Note ---
Disposition Clinical Impression: Hyperammonemia, Elevated LFTs, Hyperglycemia, Hyperkalemia, Confusion Disposition: Admitted As Inpatient Condition: Fair General Adult HPI - General Chief complaint: ED General Medical Stated complaint: hyperglycemia Time Seen by Provider: 01/22/18 12:59 Source: patient Mode of arrival: ambulatory Limitations: no limitations - History of Present Illness Pain Scale: 0 - Related Data Home Medications Medication Instructions Recorded Confirmed Insulin DETEMIR [Levemir Flextouch] 60 unit SQ QAM 01/10/15 01/22/18 Rifaximin [Xifaxan] 550 mg PO BID 01/10/15 01/22/18 Apremilast [Otezla] 30 mg PO BID 11/04/17 01/22/18 Calcium Acetate [Phos-LO] 1,334 mg PO TIDWM 11/04/17 01/22/18 Lactulose [Enulose] 15 ml PO TID 11/04/17 01/22/18 Loratadine [Allergy Relief] 10 mg PO DAILY 11/04/17 01/22/18 Lubiprostone [Amitiza] 24 mcg PO BID 11/04/17 01/22/18 Ondansetron HCl 8 mg PO Q8H 11/04/17 01/22/18 Polyethylene Glycol 3350 [MiraLAX] 17 gm PO DAILY 11/04/17 01/22/18 Spironolactone [Aldactone] 100 mg PO DAILY 11/04/17 01/22/18 Zinc Sulfate 220 mg PO TID 11/04/17 01/22/18 FLUoxetine HCl [Fluoxetine HCl] 10 mg PO DAILY 11/27/17 01/22/18 Pregabalin [Lyrica] 200 mg PO BID 11/27/17 01/22/18 Amitriptyline [Elavil] 25 mg PO HS 12/26/17 01/22/18 Ferrous Sulfate [Iron] 325 mg PO DAILY 12/26/17 01/22/18 Insulin ASPART [Novolog] 5 - 20 unit SQ TIDWM 12/26/17 01/22/18 Metoclopramide [Reglan] 10 mg PO Q8H PRN 12/26/17 01/22/18 Pantoprazole Sodium [Protonix] 40 mg PO DAILY 12/26/17 01/22/18 metFORMIN [Glucophage] 500 mg PO BIDWM 12/26/17 01/22/18 Acyclovir [Zovirax] 400 mg PO BID 01/22/18 01/22/18 Cyclobenzaprine HCl 10 mg PO TID PRN 01/22/18 01/22/18 Insulin DETEMIR [Levemir Flextouch] 45 unit SQ HS 01/22/18 01/22/18 Oxycodone HCl 15 mg PO Q6H PRN 01/22/18 01/22/18 Spironolactone [Aldactone] 25 mg PO DAILY 01/22/18 Vitamin E Acid Succinate [Vitamin 400 units PO DAILY 01/22/18 01/22/18 E] Previous Rx's Medication Instructions Recorded Lidocaine/Prilocaine [Emla] 1 appl TP AD #30 gm 12/07/17 Loperamide [Imodium] 2 mg PO AD PRN #30 capsule MDD MAX 12/07/17 8 CAP PER DAY Magic Mouthwash 5 ml PO Q4H PRN #240 ml 12/07/17 Nystatin [Nystatin Suspension] 100,000 unit PO TID #200 oral.susp 12/21/17 0.9 % Sodium Chloride 1,000 ml IV CONT #1000 ml 12/24/17 Megestrol Acetate [Megace] 800 mg PO DAILY #400 udc 01/11/18 Promethazine [Phenergan] 25 mg PO Q8HR #60 tablet 01/15/18 Amoxicillin/Clavulanate [Augmentin] 875 mg PO BIDWM #14 tablet 01/19/18 Fluconazole [Diflucan] 100 mg PO DAILY #7 tablet 01/19/18 Omeprazole [PriLOSEC] 40 mg PO BID #60 cap 01/19/18 Sucralfate [Carafate] 1 gm PO TID #90 tablet 01/20/18 Allergies Allergy/AdvReac Type Severity Reaction Status Date / Time morphine Allergy Itching Verified 12/06/17 15:45 Past Medical History - Past Medical History Medical history: Reports: arthritis, cancer, cirrhosis, diabetes, GERD, GI bleed , hypertension, other Surgical history: Reports: other Psychiatric history: Reports: no psych history - Social History Smoking Status: Never smoker Smokeless Tobacco Status: No Alcohol use: Reports: none Drug use: Reports: none Physical Exam - General Limitations: no limitations General appearance: alert, in no apparent distress Course Vital Signs Temperature 98.5 F 01/22/18 12:57 Pulse Rate 114 01/22/18 12:57 Respiratory Rate 18 01/22/18 12:57 Blood Pressure 132/73 01/22/18 12:57 O2 Sat by Pulse Oximetry 97 01/22/18 12:57 Temperature 98.9 F 01/22/18 17:20 Pulse Rate 133 01/22/18 17:20 Respiratory Rate 19 01/22/18 17:20 Blood Pressure 103/69 01/22/18 17:20 O2 Sat by Pulse Oximetry 95 01/22/18 17:20 Oxygen Delivery Oxygen Delivery Room Air Medical Decision Making - Lab Data Result diagrams: 01/22/18 13:18 01/22/18 13:18 Lab Results 01/22/18 01/22/18 01/22/18 Range/Units 13:18 13:18 13:18 WBC 5.9 (4.3-11.1) K/mcL RBC 3.82 L (4.19-5.50) M/mcL Hgb 12.3 L (12.9-16.9) g/dL Hct 35.5 L (37.5-50.1) % MCV 92.9 (83.0-100.0) fL MCH 32.2 (28.0-33.3) pg MCHC 34.6 (31.6-35.5) g/dL RDW 17.1 H (11.5-14.5) % Plt Count 35 L (140-400) K/mcL Immature Gran % 0.3 (0-4) % Seg Neutrophils % 94.4 % Lymphocytes % 3.4 % Monocytes % 1.7 % Eosinophils % 0.0 % Basophils % 0.2 % Neutrophils # 5.6 (1.6-8.9) K/mcL Lymphocytes # 0.2 L (0.6-4.6) K/mcL Monocytes # 0.1 (0.0-1.3) K/mcL Eosinophils # 0.0 (0.0-0.6) K/mcL Basophils # 0.0 (0.0-0.2) K/mcL Immature Plt Fraction 14.1 H (1.1-6.1) % VBG pH (7.32-7.42) pH Units VBG pCO2 (41-51) mmHg VBG pO2 (25-50) mmHg VBG HCO3 (21-27) mEq/L Sodium 131 L (136-145) mEq/L Potassium 5.8 H (3.5-5.1) mEq/L Chloride 104 (98-107) mEq/L Carbon Dioxide 21 L (23-29) mEq/L BUN 17 (6-20) mg/dL Creatinine 0.52 L (0.70-1.30) mg/dL Est GFR ( Amer) > 60 (> 60) Est GFR (Non-Af Amer) > 60 (> 60) BUN/Creatinine Ratio 33 H (6-26) Glucose 620 H* (70-105) mg/dL Calculated Osmolality 303 H (280-300) Calcium 9.0 (8.6-10.3) mg/dL Total Bilirubin 2.6 H (0.3-1.0) mg/dL Direct Bilirubin 0.7 H (0.0-0.2) mg/dL Indirect Bilirubin 1.9 H (0.0-1.2) mg/dL AST 29 (13-39) Units/L ALT 24 (7-52) Units/L Alkaline Phosphatase 171 H (34-104) Units/L Ammonia (16-53) mcmol/L Serum Total Protein 6.3 L (6.4-8.9) g/dL Albumin 3.0 L (3.5-5.7) g/dL Globulin 3.3 (2.4-3.5) g/dL Albumin/Globulin Ratio 0.9 L (1.1-2.2) Beta-Hydroxybutyric Acd 0.26 (0.02-0.27) mmol/L Urine Color (Yellow) Urine Clarity (Clear) Urine pH (5.0-8.0) pH Units Ur Specific [place] (1.010-1.025) Urine Protein (Neg-Trace) mg/dL Urine Glucose (UA) (Normal) mg/dL Urine Ketones (Negative) mg/dL Urine Blood (Negative) Urine Nitrite (Negative) Urine Bilirubin (Negative) Urine Urobilinogen (Normal) mg/dL Ur Leukocyte Esterase (Negative) Ur Culture Indicated? (NO) 01/22/18 01/22/18 01/22/18 Range/Units 13:18 13:34 14:57 WBC (4.3-11.1) K/mcL RBC (4.19-5.50) M/mcL Hgb (12.9-16.9) g/dL Hct (37.5-50.1) % MCV (83.0-100.0) fL MCH (28.0-33.3) pg MCHC (31.6-35.5) g/dL RDW (11.5-14.5) % Plt Count (140-400) K/mcL Immature Gran % (0-4) % Seg Neutrophils % % Lymphocytes % % Monocytes % % Eosinophils % % Basophils % % Neutrophils # (1.6-8.9) K/mcL Lymphocytes # (0.6-4.6) K/mcL Monocytes # (0.0-1.3) K/mcL Eosinophils # (0.0-0.6) K/mcL Basophils # (0.0-0.2) K/mcL Immature Plt Fraction (1.1-6.1) % VBG pH 7.45 H (7.32-7.42) pH Units VBG pCO2 33 L (41-51) mmHg VBG pO2 194 H (25-50) mmHg VBG HCO3 23 (21-27) mEq/L Sodium (136-145) mEq/L Potassium (3.5-5.1) mEq/L Chloride (98-107) mEq/L Carbon Dioxide (23-29) mEq/L BUN (6-20) mg/dL Creatinine (0.70-1.30) mg/dL Est GFR ( Amer) (> 60) Est GFR (Non-Af Amer) (> 60) BUN/Creatinine Ratio (6-26) Glucose (70-105) mg/dL Calculated Osmolality (280-300) Calcium (8.6-10.3) mg/dL Total Bilirubin (0.3-1.0) mg/dL Direct Bilirubin (0.0-0.2) mg/dL Indirect Bilirubin (0.0-1.2) mg/dL AST (13-39) Units/L ALT (7-52) Units/L Alkaline Phosphatase (34-104) Units/L Ammonia 102 H (16-53) mcmol/L Serum Total Protein (6.4-8.9) g/dL Albumin (3.5-5.7) g/dL Globulin (2.4-3.5) g/dL Albumin/Globulin Ratio (1.1-2.2) Beta-Hydroxybutyric Acd (0.02-0.27) mmol/L Urine Color Yellow (Yellow) Urine Clarity Clear (Clear) Urine pH 6.0 (5.0-8.0) pH Units Ur Specific [place] > 1.030 H (1.010-1.025) Urine Protein Negative (Neg-Trace) mg/dL Urine Glucose (UA) >=1000 H (Normal) mg/dL Urine Ketones Negative (Negative) mg/dL Urine Blood Negative (Negative) Urine Nitrite Negative (Negative) Urine Bilirubin Negative (Negative) Urine Urobilinogen Normal (Normal) mg/dL Ur Leukocyte Esterase Negative (Negative) Ur Culture Indicated? NO (NO) Attestation Statement - Attestation Attestation: I examined this patient and my medical decision-making was reviewed with the FAMILY MANAGER/PA/Advanced Practice Nurse/Resident Physician. I agree with the documented findings, disposition and treatment plan as described except to the extent set forth below. I did see the patient immediately upon arrival and also spoke with the paramedics and the patient was transferred from the cancer center because of hyperglycemia and altered consciousness. He is here with his mother. The patient was diagnosed with left testicular cancer 7 years ago with surgery and did have recurrence 2 months ago and is currently on chemotherapy and was started on oral prednisone 3 days ago. Blood sugar was 535 prior to arrival. Did not take any blood sugar medications today as the mother states that the oncology group told them not to take any medications on the day of their visit to the oncology clinic. Patient is conversational, in no distress, breathing comfortably. Laboratory evaluation is pending. 1309 I did go back and check on the patient. No head trauma. No use of anticoagulation. Test results pending. He is sitting comfortably in the cart, bright and alert and in no distress at this time. [id number]
[2018-01-22 13:35] LABS: Immature Granulocytes % 0.3 % (0-4); Mean Corpuscular Volume 92.9 fL (83.0-100.0); Red Cell Distribution Width 17.1 % (11.5-14.5); Segmented Neutrophils % 94.4 %
[2018-01-22 13:37] LABS: Basophils % 0.2 %; Hematocrit 35.5 % (37.5-50.1); Hemoglobin 12.3 g/dL (12.9-16.9); Immature Platelets 14.1 % (1.1-6.1); Lymphocytes # 0.2 K/mcL (0.6-4.6); Lymphocytes % 3.4 %; Mean Corpuscular HGB Conc 34.6 g/dL (31.6-35.5); Mean Corpuscular Hemoglobin 32.2 pg (28.0-33.3); Monocytes # 0.1 K/mcL (0.0-1.3); Monocytes % 1.7 %; Neutrophils # 5.6 K/mcL (1.6-8.9); Red Blood Count 3.82 M/mcL (4.19-5.50)
[2018-01-22 13:38] LABS: VBG HCO3 23 mEq/L (21-27); VBG PCO2 33 mmHg (41-51); VBG PH 7.45 pH Units (7.32-7.42); VBG PO2 194 mmHg (25-50)
[2018-01-22] MEDS ORDERED: 0.9 % Sodium Chloride 1,000 ML IVC ONE (13:38)
[2018-01-22 13:43] LABS: Platelet Count 35 K/mcL (140-400)
[2018-01-22 14:19] LABS: Alanine Aminotransferase 24 Units/L (7-52); Albumin/Globulin Ratio 0.9 (1.1-2.2); Alkaline Phosphatase 171 Units/L (34-104); Aspartate Amino Transferase 29 Units/L (13-39); BUN/Creatinine Ratio 33 (6-26); Bilirubin,Direct 0.7 mg/dL (0.0-0.2); Bilirubin,Indirect 1.9 mg/dL (0.0-1.2); Bilirubin,Total 2.6 mg/dL (0.3-1.0); Blood Urea Nitrogen 17 mg/dL (6-20); Carbon Dioxide 21 mEq/L (23-29); Chloride 104 mEq/L (98-107); Globulin 3.3 g/dL (2.4-3.5); Glucose 620 mg/dL (70-105); Osmolality,Calculated 303 (280-300); Potassium 5.8 mEq/L (3.5-5.1); Sodium 131 mEq/L (136-145); Total Protein 6.3 g/dL (6.4-8.9); eGFR For Non-African Americans > 60 (> 60)
[2018-01-22] MEDS ORDERED: Insulin Human Regular 10 UNIT in 0.9 % Sodium Chloride 10 ML IV ONE (15:09)
[2018-01-22 15:19] LABS: Bilirubin,Urine Negative (Negative); Blood,Urine Negative (Negative); Clarity,Urine Clear (Clear); Color,Urine Yellow (Yellow); Glucose,Urine (UA) >=1000 mg/dL (Normal); Ketones,Urine Negative (Negative); Leukocyte Esterase,Urine Negative (Negative); Nitrite,Urine Negative (Negative); Protein,Urine Negative (Neg-Trace); Specific Gravity,Urine > 1.030 (1.010-1.025); Urobilinogen,Urine Normal (Normal)
[2018-01-22] MEDS ORDERED: Lactulose Oral Soln 20 GM/30 ML UDC PO ONE (15:40)
[2018-01-22] MEDS ORDERED: Insulin Regular, Human 100 UNIT/ML IV ONE (16:14)
[2018-01-22] MEDS ORDERED: *HR* Dextrose 50 % in Water (Syg) 50 ML SYRINGE IVP PRN ×2 (16:14→16:25)
[2018-01-22] MEDS ORDERED: D5% in Water 1,000 ML IVC PRN (16:25)
[2018-01-22] MEDS ORDERED: Dextrose Gel 15 GM/37.5 ML TUBE PO PRN ×2 (16:25)
[2018-01-22] MEDS ORDERED: Naloxone 0.4 MG/ML INJ IVP PRN (16:25)
[2018-01-22] MEDS ORDERED: D5% in 0.45% NACL 1,000 ML IVC PRN (16:36)
[2018-01-22] MEDS ORDERED: Insulin Human Regular 8 UNIT in 0.9 % Sodium Chloride 10 ML IV ONE (16:38)
[2018-01-22] MEDS ORDERED: Insulin Human Regular 100 UNIT in 0.9 % Sodium Chloride 100 ML IVC SCH (16:45)
[2018-01-22] MEDS ORDERED: 0.9 % Sodium Chloride 1,000 ML IVC SCH (16:45)
--- NOTE | 2018-01-22 17:20 | Internal Med History&Physical ---
<Dina Lu M - Last Filed: 01/22/18 18:13> Date of Encounter: 01/22/18 Time of Encounter: 17:10 Internal Medicine - H&P: HPI Chief complaint: AMS Admitted From: Emergency Dept Plans for Post Hospital Care: Home History of present illness: Mr. 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 Today at the cancer center during an infusion he complained of confusion, difficulty concentrating, hand tremor, heart racing palpitations and chest pain. Chest pain was non-radiating without shortness of breath or diaphoresis and has since resolved. The patients last dose of lactulose and he has only had one bowel movement today with typical of two per day. His last dose of insulin was last night with blood glucose of 178. He received steroids during the infusion. He was brought to the ED where he was found to have blood glucose of 620, elevated ammonia of 102, anion gap 6. He was started on IVF and insulin with resolution of his symptoms. At bedside, the patient feels back to baseline and as no complaints. He reports increased thirst and frequent urination. He notes some mild abdominal pain and nausea at his baseline. Also has a mild cough that started today. He admits to pedal edema that is above his baseline. Pain and numbenes in his legs at his baseline but has not received his lyrica today. Denies any further confusion, lightheadedness, dizziness, fevers, chills, or headaches. Patient was recently admitted 01/15-01/19 for pneumonia and neutropenic fever. He had EGD that showed erosive esophagitis and he was started on PPI and Carafate. Also found to have oral abdulaziz. He has not yet completed his courses of Augmentin and fluconazole. Past Med Surg Social Fam HX - Past Medical History Medical history: arthritis, cancer, cirrhosis, diabetes, GERD, GI bleed, hypertension, other Additional medical history: neuropathy Psychiatric history: no psych history - Past Surgical History Surgical History: other Additional surgical history: port placement. left testicle removed. esophageal banding - Social History Smoking Status: Never smoker Smokeless Tobacco Status: No Alcohol use: none Drug use: none - Family History Father Hx Family Cardiac Disorders: Yes (tammie) Brother Living Status: Hx Family GI Disorders: Yes (Esophgeal) Maternal Grandmother Adopted: No Hx Family Endocrine Disorder: Yes (diabetic) Internal Medicine - H&P: Meds Insulin DETEMIR [Levemir Flextouch] 60 unit SQ QAM 01/10/15 [History] Rifaximin [Xifaxan] 550 mg PO BID 01/10/15 [History] Apremilast [Otezla] 30 mg PO BID 11/04/17 [History] Calcium Acetate [Phos-LO] 1,334 mg PO TIDWM 11/04/17 [History] Lactulose [Enulose] 15 ml PO TID 11/04/17 [History] Loratadine [Allergy Relief] 10 mg PO DAILY 11/04/17 [History] Lubiprostone [Amitiza] 24 mcg PO BID 11/04/17 [History] Ondansetron HCl 8 mg PO Q8H 11/04/17 [History] Polyethylene Glycol 3350 [MiraLAX] 17 gm PO DAILY 11/04/17 [History] Spironolactone [Aldactone] 100 mg PO DAILY 11/04/17 [History] Zinc Sulfate 220 mg PO TID 11/04/17 [History] FLUoxetine HCl [Fluoxetine HCl] 10 mg PO DAILY 11/27/17 [History] Pregabalin [Lyrica] 200 mg PO BID 11/27/17 [History] Lidocaine/Prilocaine [Emla] 1 appl TP AD #30 gm 12/07/17 [Rx] Loperamide [Imodium] 2 mg PO AD PRN #30 capsule MDD MAX 8 CAP PER DAY 12/07/17 [ Rx] Magic Mouthwash 5 ml PO Q4H PRN #240 ml 12/07/17 [Rx] Nystatin [Nystatin Suspension] 100,000 unit PO TID #200 oral.susp 12/21/17 [Rx] 0.9 % Sodium Chloride 1,000 ml IV CONT #1000 ml 12/24/17 [Rx] Amitriptyline [Elavil] 25 mg PO HS 12/26/17 [History] Ferrous Sulfate [Iron] 325 mg PO DAILY 12/26/17 [History] Insulin ASPART [Novolog] 5 - 20 unit SQ TIDWM 12/26/17 [History] Metoclopramide [Reglan] 10 mg PO Q8H PRN 12/26/17 [History] Pantoprazole Sodium [Protonix] 40 mg PO DAILY 12/26/17 [History] metFORMIN [Glucophage] 500 mg PO BIDWM 12/26/17 [History] Megestrol Acetate [Megace] 800 mg PO DAILY #400 udc 01/11/18 [Rx] Promethazine [Phenergan] 25 mg PO Q8HR #60 tablet 01/15/18 [Rx] Amoxicillin/Clavulanate [Augmentin] 875 mg PO BIDWM #14 tablet 01/19/18 [Rx] Fluconazole [Diflucan] 100 mg PO DAILY #7 tablet 01/19/18 [Rx] Omeprazole [PriLOSEC] 40 mg PO BID #60 cap 01/19/18 [Rx] Sucralfate [Carafate] 1 gm PO TID #90 tablet 01/20/18 [Rx] Acyclovir [Zovirax] 400 mg PO BID 01/22/18 [History] Cyclobenzaprine HCl 10 mg PO TID PRN 01/22/18 [History] Insulin DETEMIR [Levemir Flextouch] 45 unit SQ HS 01/22/18 [History] Oxycodone HCl 15 mg PO Q6H PRN 01/22/18 [History] Spironolactone [Aldactone] 25 mg PO DAILY 01/22/18 [History] Vitamin E Acid Succinate [Vitamin E] 400 units PO DAILY 01/22/18 [History] 3 Allergy/AdvReac Type Severity Reaction Status Date / Time morphine Allergy Itching Verified 12/06/17 15:45 All Systems PM: A 10-system review of systems was performed and is negative for pertinent findings except as documented above in the HPI. Review of systems: ROS: Gen: No confusion, lightheadedness, dizziness, fevers, chills. HEENT: Increased thirst. No headache. Chest: Cough. No SOB. Abd: Mild abdominal pain and nausea. No vomiting, diarrhea, hematuria, melena. : odysuria, hematuria. Skin: No rashes. Redness in fingertips (chronic) Musc: Pain in knees (psoriatic arthritis), LE edema. Neuro: Numbess in feet (DM neuropathy) - Constitutional Vitals: Temp Pulse Resp BP Pulse Ox 98.5 F 118 20 152/82 98 01/22/18 12:57 01/22/18 16:24 01/22/18 16:24 01/22/18 16:24 01/22/18 16:24 General appearance: Present: A&O X 3, no acute distress, answers questions appropriately - Head Head exam: Present: atraumatic, normocephalic - Eye Eye exam: Present: conjuntiva pink, sclera anicteric - ENT ENT exam: Present: mucous membranes moist Additional comments: missing teeth - Neck Neck exam general surgery: Present: lymphadenopathy - Respiratory Respiratory exam: Present: CTAB. Absent: accessory muscle use, rales, rhonchi, wheezes - Cardiovascular Cardiovascular exam: Present: +S1, +S2, systolic murmur. Absent: diastolic murmur - GI/Abdominal GI/Abdominal exam: Present: distended, normal bowel sounds, soft. Absent: guarding, mass, tenderness - Extremities Exam Extremities exam: Present: pedal edema, warm, radial pulses palpable and symmetrical. Absent: calf tenderness, cyanotic Additional comments: +2/4 pitting edema up to calf - Neurological Exam Neurological exam: Present: oriented X3, no focal deficits, pronater drift. Absent: facial droop, speech deficit - Skin Skin exam: Present: dry, intact Internal Med - H&P Results - Labs CBC & Chem 7: 01/22/18 13:18 01/22/18 13:18 - Assessment and plan (1) Altered mental state Current Visit: No Status: Resolved Assessment and plan: Likely due to HHS and hyperammonemia Qualifiers: Altered mental status type: unspecified Qualified Code(s): R41.82 - Altered mental status, unspecified (2) Hyperammonemia Current Visit: Yes Status: Acute Assessment and plan: encephalopathic symtoms resolved; elevated ammonia 102 - missed morning dose of lactulose but received one in ED (3) Hyperglycemia Current Visit: Yes Status: Acute Assessment and plan: Likely hyperosmolar hyperglycemia syndrome with glucose of 620 and calculated osm of 303 - beta hydroxybutyric acid is wnl at 0.26 - no ketones in urine - venous pH mild elevation at 7.45 - continue insulin drip per protocol - hold IVF as received 2L in ED and clinical appears euvolemic (4) Hyperkalemia Current Visit: Yes Status: Acute Assessment and plan: K 5.8; may resolve with treatment of HHS - continue to monitor with BMP q4 (5) Diabetes mellitus, type 2 Current Visit: No Status: Chronic Assessment and plan: see HHS Qualifiers: Diabetes mellitus prison insulin use: with prison use Diabetes mellitus complication status: with neurologic complications Diabetes mellitus complication detail: with unspecified neuropathy Qualified Code(s): E11.40 - Type 2 diabetes mellitus with diabetic neuropathy, unspecified; Z79.4 - check totaler (current) use of insulin (6) 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 Current Visit: No Status: Chronic (7) Testicular cancer Current Visit: No Status: Chronic Assessment and plan: hold chemotherapy and apreilast and lubiprostone Qualifiers: Descendance of testis: unspecified Laterality: unspecified laterality Qualified Code(s): C62.90 - Malignant neoplasm of unspecified testis, unspecified whether descended or undescended (8) Pneumonia Current Visit: No Status: Resolved Assessment and plan: Per Chest X-ray in ED lungs are clear - continue augmentin Qualifiers: Qualified Code(s): J18.9 - Pneumonia, unspecified organism (9) Oral abdulaziz Current Visit: Yes Status: Resolved Assessment and plan: continue fluconazole - Time Spent With Patient Total time spent is greater than 50% in coordination of care (as documented) at patient's floor/unit and/or counseling patient: <Mitchell Martinez - Last Filed: 01/23/18 16:44> Date of Encounter: 01/23/18 Internal Medicine - H&P: HPI History of present illness: Mr. Rey is a 42 year old male All Systems PM: A 10-system review of systems was performed and is negative for pertinent findings except as documented above in the HPI. - Constitutional Vitals: Temp Pulse Resp BP Pulse Ox 98.3 F 100 18 105/63 97 01/23/18 11:55 01/23/18 11:55 01/23/18 11:55 01/23/18 11:55 01/23/18 11:55 Internal Med - H&P Results - Labs CBC & Chem 7: 01/23/18 05:15 01/23/18 04:00 Labs: Short CBC 01/23/18 Range/Units 05:15 WBC 3.4 L (4.3-11.1) K/mcL Hgb 10.0 L D (12.9-16.9) g/dL Hct 29.0 L (37.5-50.1) % Plt Count 30 L* (140-400) K/mcL Neutrophils # 2.8 (1.6-8.9) K/mcL BMP 01/22/18 01/22/18 01/23/18 17:49 20:43 00:50 Sodium 134 L 135 L 136 Potassium 5.0 4.5 4.5 Chloride 106 105 105 Carbon Dioxide 23 25 26 BUN 20 21 H 21 H Creatinine 0.48 L 0.48 L 0.47 L Glucose 488 H 419 H 248 H Calcium 8.7 8.5 L 8.8 01/23/18 04:00 Sodium 134 L Potassium 4.8 Chloride 105 Carbon Dioxide 27 BUN 21 H Creatinine 0.41 L Glucose 237 H Calcium 8.3 L Liver Function 01/23/18 Range/Units 04:00 Total Bilirubin 2.8 H (0.3-1.0) mg/dL AST 27 (13-39) Units/L ALT 22 (7-52) Units/L Alkaline Phosphatase 112 H (34-104) Units/L Albumin 2.4 L (3.5-5.7) g/dL - Attending Attestation I examined this patient and my medical decision-making was reviewed with the Resident Physician Dr. Lauren. I agree with the documented findings, disposition and treatment plan as described except to the extent set forth below. - Assessment and plan (1) Acute metabolic encephalopathy Current Visit: Yes Status: Acute (2) Hyperammonemia Current Visit: Yes Status: Acute (3) Hyperglycemia Current Visit: Yes Status: Acute (4) Diabetes mellitus, type 2 Current Visit: No Status: Chronic Qualifiers: Diabetes mellitus r developer insulin use: with r developer use Diabetes mellitus complication status: with neurologic complications Diabetes mellitus complication detail: with unspecified neuropathy Qualified Code(s): E11.40 - Type 2 diabetes mellitus with diabetic neuropathy, unspecified; Z79.4 - check totaler (current) use of insulin (5) Liver cirrhosis Current Visit: No Status: Chronic Qualifiers: Hepatic cirrhosis type: unspecified hepatic cirrhosis Ascites presence: unspecified Qualified Code(s): K74.60 - Unspecified cirrhosis of liver (6) Thrombocytopenia Current Visit: No Status: Resolved (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
[2018-01-22 18:32] LABS: BUN/Creatinine Ratio 42 (6-26); Blood Urea Nitrogen 20 mg/dL (6-20); Calcium 8.7 mg/dL (8.6-10.3); Carbon Dioxide 23 mEq/L (23-29); Chloride 106 mEq/L (98-107); Glucose 488 mg/dL (70-105); Osmolality,Calculated 302 (280-300); Sodium 134 mEq/L (136-145); eGFR For Non-African Americans > 60 (> 60)
[2018-01-22] MEDS ORDERED: *HR* Metoprolol 5 MG/5 ML VIAL IVP ONE (18:48)
[2018-01-22] MEDS ORDERED: *HR* Metoprolol 5 MG/5 ML VIAL IVP PRN (18:48)
[2018-01-22] MEDS: Ondansetron ODT 4 MG TAB.RAPDIS PO SCH (20:57)
[2018-01-22] MEDS: Pregabalin 50 MG CAPSULE PO SCH (20:57)
[2018-01-22] MEDS: Sucralfate 1 GM TABLET PO SCH (20:57)
[2018-01-22] MEDS: Acyclovir 200 MG CAPSULE PO SCH (20:57)
[2018-01-22] MEDS: Lactulose Oral Soln 20 GM/30 ML UDC PO SCH (20:57)
[2018-01-22] MEDS: *HR* OxyCODONE Immed Rel 15 MG TABLET PO PRN (20:57)
[2018-01-22] MEDS: Nystatin SUSP 5 ML UD.LIQ PO SCH (20:57)
[2018-01-22 22:54] LABS: BUN/Creatinine Ratio 44 (6-26); Blood Urea Nitrogen 21 mg/dL (6-20); Calcium 8.5 mg/dL (8.6-10.3); Carbon Dioxide 25 mEq/L (23-29); Chloride 105 mEq/L (98-107); Glucose 419 mg/dL (70-105); Osmolality,Calculated 301 (280-300); Potassium 4.5 mEq/L (3.5-5.1); Sodium 135 mEq/L (136-145); eGFR For Non-African Americans > 60 (> 60)
[2018-01-23] MEDS ORDERED: *HR* Dextrose 50 % in Water (Syg) 50 ML SYRINGE IVP PRN ×3 (01:13→01:47)
[2018-01-23] MEDS ORDERED: Insulin Regular, Human 100 UNIT/ML IV PRN ×2 (01:13→01:18)
[2018-01-23] MEDS ORDERED: Insulin Human Regular 100 UNIT in 0.9 % Sodium Chloride 100 ML IVC SCH ×2 (01:15→01:30)
[2018-01-23 01:26] LABS: BUN/Creatinine Ratio 45 (6-26); Blood Urea Nitrogen 21 mg/dL (6-20); Calcium 8.8 mg/dL (8.6-10.3); Carbon Dioxide 26 mEq/L (23-29); Chloride 105 mEq/L (98-107); Glucose 248 mg/dL (70-105); Osmolality,Calculated 293 (280-300); Potassium 4.5 mEq/L (3.5-5.1); Sodium 136 mEq/L (136-145); eGFR For Non-African Americans > 60 (> 60)
[2018-01-23] MEDS ORDERED: Dextrose Gel 15 GM/37.5 ML TUBE PO PRN ×2 (01:47)
[2018-01-23] MEDS ORDERED: D5% in Water 1,000 ML IVC PRN (01:47)
[2018-01-23] MEDS: Insulin DETEMIR 100 UNIT/ML X5UNITS SQ SCH ×3 (02:02→20:31)
[2018-01-23] MEDS ORDERED: D5% in 0.45% NACL w KCl 20 MEQ/1,000 ML MLS IVC SCH (03:00)
[2018-01-23] MEDS: 0.9 % Sodium Chloride 1,000 ML IVC SCH ×2 (03:26→15:02)
[2018-01-23] MEDS: Ondansetron ODT 4 MG TAB.RAPDIS PO SCH ×3 (05:22→17:35)
[2018-01-23 05:41] LABS: Immature Granulocytes % 0.3 % (0-4); Immature Platelets 12.7 % (1.1-6.1); Lymphocytes # 0.4 K/mcL (0.6-4.6); Lymphocytes % 12.8 %; Mean Corpuscular HGB Conc 34.5 g/dL (31.6-35.5); Mean Corpuscular Hemoglobin 31.9 pg (28.0-33.3); Mean Corpuscular Volume 92.7 fL (83.0-100.0); Mean Platelet Volume 14.1 fL (9.4-12.4); Monocytes # 0.2 K/mcL (0.0-1.3); Monocytes % 4.9 %; Neutrophils # 2.8 K/mcL (1.6-8.9); Red Blood Count 3.13 M/mcL (4.19-5.50); Red Cell Distribution Width 16.5 % (11.5-14.5)
[2018-01-23 05:49] LABS: Platelet Count 30 K/mcL (140-400)
[2018-01-23 05:59] LABS: Alanine Aminotransferase 22 Units/L (7-52); Albumin 2.4 g/dL (3.5-5.7); Albumin/Globulin Ratio 0.9 (1.1-2.2); Alkaline Phosphatase 112 Units/L (34-104); Aspartate Amino Transferase 27 Units/L (13-39); BUN/Creatinine Ratio 51 (6-26); Bilirubin,Total 2.8 mg/dL (0.3-1.0); Blood Urea Nitrogen 21 mg/dL (6-20); Calcium 8.3 mg/dL (8.6-10.3); Carbon Dioxide 27 mEq/L (23-29); Chloride 105 mEq/L (98-107); Globulin 2.7 g/dL (2.4-3.5); Glucose 237 mg/dL (70-105); Osmolality,Calculated 289 (280-300); Potassium 4.8 mEq/L (3.5-5.1); Sodium 134 mEq/L (136-145); Total Protein 5.1 g/dL (6.4-8.9); eGFR For Non-African Americans > 60 (> 60)
[2018-01-23 06:50] LABS: Magnesium 1.6 mg/dL (1.6-2.6); Phosphorous 3.7 mg/dL (2.7-4.5)
[2018-01-23] MEDS ORDERED: Magic Mouthwash 10 ML UD Cup PO PRN (07:57)
[2018-01-23] MEDS: Pregabalin 50 MG CAPSULE PO SCH ×2 (08:19→20:29)
[2018-01-23] MEDS: Insulin LISPRO 300 UNITS/3 ML VIAL SQ SCH ×5 (08:19→20:32)
[2018-01-23] MEDS: Loratadine 10 MG TABLET PO SCH (08:20)
[2018-01-23] MEDS: Acyclovir 200 MG CAPSULE PO SCH ×2 (08:20→20:29)
[2018-01-23] MEDS: Calcium Acetate 667 MG CAPSULE PO SCH ×3 (08:20→17:35)
[2018-01-23] MEDS: Sucralfate 1 GM TABLET PO SCH ×3 (08:20→20:30)
[2018-01-23] MEDS: FLUoxetine HCl 10 MG CAPSULE PO SCH (08:21)
[2018-01-23] MEDS: Fluconazole 100 MG TABLET PO SCH (08:21)
[2018-01-23] MEDS: Megestrol Acetate 400 MG/10 ML UDC PO SCH (08:22)
[2018-01-23] MEDS: Lactulose Oral Soln 20 GM/30 ML UDC PO SCH ×3 (08:22→20:29)
[2018-01-23] MEDS: Nystatin SUSP 5 ML UD.LIQ PO SCH ×3 (08:22→20:31)
[2018-01-23] MEDS: Zinc Sulfate 220 MG CAPSULE PO SCH ×3 (08:29→20:30)
[2018-01-23] MEDS ORDERED: NON-FORMULARY MEDICATION 1 EACH EACH (Pantoprazole Sodium [Protonix] 40 MG) PO SCH (09:00)
[2018-01-23] MEDS ORDERED: Lubiprostone [Amitiza] 24 MCG PO SCH (09:00)
[2018-01-23] MEDS: Apremilast [Otezla] 30 MG PO SCH ×2 (09:54→21:25)
--- NOTE | 2018-01-23 10:17 | Internal Med Progress Note ---
Hospitalist Progress Note - Encounter Date of Encounter: 01/23/18 Time of Encounter: 10:17 - Subjective Interval History: No acute events. Patient states he feels much better than yesterday but still feels foggy. - Exam Vitals: Temp Pulse Resp BP Pulse Ox 98.2 F 105 19 118/70 97 01/23/18 08:00 01/23/18 08:00 01/23/18 08:00 01/23/18 08:00 01/23/18 08:00 Exam: Gen: NAD Chest right port in place CVS: RRR Lungs: CTAB Abd: soft, NT, ND - Assessment and Plan (1) Acute metabolic encephalopathy Current Visit: Yes Status: Acute Assessment and Plan: Likely from hyper ammonia and hyperglycemia. This happened after patient missed doses of his home medications yesterday. Ammonia was 102 on admission and clinically improved and today it is 68. Glucose on admission was 620 with negative ketones and has improved with insulin drip. - Continue home medications insulin, lactulose, rifaximin. (2) Hyperammonemia Current Visit: Yes Status: Acute Assessment and Plan: Clinically improved after resuming home medication. Plan as above. (3) Hyperglycemia Current Visit: Yes Status: Acute Assessment and Plan: Due to non-compliance for one day. Glucose improving. (4) Diabetes mellitus, type 2 Current Visit: No Status: Chronic Assessment and Plan: Resume home medications. (5) Liver cirrhosis Current Visit: No Status: Chronic Assessment and Plan: Continue laculose and rifaximin. (6) Thrombocytopenia Current Visit: No Status: Resolved Assessment and Plan: at baseline. 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 (8) DVT prophylaxis Current Visit: No Status: Acute Assessment and Plan: SCD - Time Spent with Patient Total time spent is greater than 50% in coordination of care (as documented) at patient's floor/unit and/or counseling patient: Plan of Care Discussed with: family Internal Medicine: Result - Labs CBC & Chem 7: 01/23/18 05:15 01/23/18 04:00 Labs: Short CBC 01/23/18 Range/Units 05:15 WBC 3.4 L (4.3-11.1) K/mcL Hgb 10.0 L D (12.9-16.9) g/dL Hct 29.0 L (37.5-50.1) % Plt Count 30 L* (140-400) K/mcL Neutrophils # 2.8 (1.6-8.9) K/mcL BMP 01/22/18 01/22/18 01/23/18 17:49 20:43 00:50 Sodium 134 L 135 L 136 Potassium 5.0 4.5 4.5 Chloride 106 105 105 Carbon Dioxide 23 25 26 BUN 20 21 H 21 H Creatinine 0.48 L 0.48 L 0.47 L Glucose 488 H 419 H 248 H Calcium 8.7 8.5 L 8.8 01/23/18 04:00 Sodium 134 L Potassium 4.8 Chloride 105 Carbon Dioxide 27 BUN 21 H Creatinine 0.41 L Glucose 237 H Calcium 8.3 L Liver Function 01/23/18 Range/Units 04:00 Total Bilirubin 2.8 H (0.3-1.0) mg/dL AST 27 (13-39) Units/L ALT 22 (7-52) Units/L Alkaline Phosphatase 112 H (34-104) Units/L Albumin 2.4 L (3.5-5.7) g/dL Consult Discharge Plan - Plan Referrals: Tripp Angulo, [Primary Care Provider] - (4) Diabetes mellitus, type 2 Qualifiers: Diabetes mellitus intermission coordinator insulin use: with intermission coordinator use Diabetes mellitus complication status: with neurologic complications Diabetes mellitus complication detail: with unspecified neuropathy Qualified Code(s): E11.40 - Type 2 diabetes mellitus with diabetic neuropathy, unspecified; Z79.4 - salvage determiner (current) use of insulin (5) Liver cirrhosis Qualifiers: Hepatic cirrhosis type: unspecified hepatic cirrhosis Ascites presence: unspecified Qualified Code(s): K74.60 - Unspecified cirrhosis of liver
[2018-01-23] MEDS: Lubiprostone [Amitiza] 24 MCG PO SCH ×2 (11:00→20:28)
[2018-01-24] MEDS: 0.9 % Sodium Chloride 1,000 ML IVC SCH (00:25)
[2018-01-24] MEDS: Ondansetron ODT 4 MG TAB.RAPDIS PO SCH ×2 (00:25→08:29)
[2018-01-24] MEDS: *HR* OxyCODONE Immed Rel 15 MG TABLET PO PRN (00:29)
[2018-01-24 05:39] LABS: Eosinophils # 0.1 K/mcL (0.0-0.6); Eosinophils % 1.4 %; Hematocrit 27.2 % (37.5-50.1); Hemoglobin 9.5 g/dL (12.9-16.9); Immature Platelets 13.9 % (1.1-6.1); Lymphocytes # 0.5 K/mcL (0.6-4.6); Lymphocytes % 13.1 %; Mean Corpuscular HGB Conc 34.9 g/dL (31.6-35.5); Mean Corpuscular Hemoglobin 31.7 pg (28.0-33.3); Mean Corpuscular Volume 90.7 fL (83.0-100.0); Mean Platelet Volume 13.4 fL (9.4-12.4); Monocytes # 0.1 K/mcL (0.0-1.3); Monocytes % 1.6 %; Red Cell Distribution Width 15.9 % (11.5-14.5)
[2018-01-24 05:48] LABS: Neutrophils # 3.1 K/mcL (1.6-8.9); Platelet Count 34 K/mcL (140-400); Segmented Neutrophils % 83.9 %
[2018-01-24 06:00] LABS: BUN/Creatinine Ratio 33 (6-26); Blood Urea Nitrogen 13 mg/dL (6-20); Calcium 8.2 mg/dL (8.6-10.3); Carbon Dioxide 26 mEq/L (23-29); Chloride 99 mEq/L (98-107); Glucose 319 mg/dL (70-105); Osmolality,Calculated 278 (280-300); Potassium 4.6 mEq/L (3.5-5.1); Sodium 128 mEq/L (136-145); eGFR For Non-African Americans > 60 (> 60)
[2018-01-24 07:22] VITALS: BP 112/64
[2018-01-24] MEDS ORDERED: Insulin DETEMIR 100 UNIT/ML X5UNITS SQ SCH (07:47)
[2018-01-24] MEDS: Lactulose Oral Soln 20 GM/30 ML UDC PO SCH (08:28)
[2018-01-24] MEDS: Megestrol Acetate 400 MG/10 ML UDC PO SCH (08:28)
[2018-01-24] MEDS: Nystatin SUSP 5 ML UD.LIQ PO SCH (08:29)
[2018-01-24] MEDS: Zinc Sulfate 220 MG CAPSULE PO SCH (08:29)
[2018-01-24] MEDS: Pregabalin 50 MG CAPSULE PO SCH (08:30)
[2018-01-24] MEDS: Sucralfate 1 GM TABLET PO SCH (08:30)
[2018-01-24] MEDS: Loratadine 10 MG TABLET PO SCH (08:30)
[2018-01-24] MEDS: Calcium Acetate 667 MG CAPSULE PO SCH (08:30)
[2018-01-24] MEDS: Fluconazole 100 MG TABLET PO SCH (08:30)
[2018-01-24] MEDS: FLUoxetine HCl 10 MG CAPSULE PO SCH (08:30)
[2018-01-24] MEDS: Acyclovir 200 MG CAPSULE PO SCH (08:32)
[2018-01-24] MEDS: Insulin LISPRO 300 UNITS/3 ML VIAL SQ SCH (08:40)
[2018-01-24] MEDS ORDERED: (Lubiprostone [Amitiza] 24 MCG) PO SCH (09:00)
--- NOTE | 2018-01-24 09:00 | Discharge Summary ---
- NOTES TO OUTPATIENT PROVIDER Notes to Outpatient Provider: Follow-up BMP and CBC in one week. Orders not resulted at time of discharge: Pending orders 01/22/18 17:49 Culture,Blood [BC] Routine Date of Encounter: 01/24/18 Time of Encounter: 08:58 - Discharge Diagnosis (1) Acute metabolic encephalopathy Priority: Primary Status: Acute Assessment and Plan: Likely from hyper ammonia and hyperglycemia. This happened after patient missed doses of his home medications yesterday. Ammonia was 102 on admission and clinically improved and today it is 68. Glucose on admission was 620 with negative ketones and has improved with insulin drip. (2) Hyperammonemia Priority: Secondary Status: Acute (3) Hyperglycemia Priority: Secondary Status: Acute (4) Diabetes mellitus, type 2 Priority: Secondary Status: Chronic Qualifiers: Diabetes mellitus continuous churn buttermaker insulin use: with penitentiary use Diabetes mellitus complication status: with neurologic complications Diabetes mellitus complication detail: with unspecified neuropathy Qualified Code(s): E11.40 - Type 2 diabetes mellitus with diabetic neuropathy, unspecified; Z79.4 - [facility] (current) use of insulin (5) Liver cirrhosis Priority: Secondary Status: Chronic Qualifiers: Hepatic cirrhosis type: unspecified hepatic cirrhosis Ascites presence: unspecified Qualified Code(s): K74.60 - Unspecified cirrhosis of liver (6) Thrombocytopenia Priority: Secondary Status: Resolved (7) Extragonadal germ cell tumor Priority: Secondary (d) Status: Inactive (8) DVT prophylaxis Priority: Secondary Status: Acute Hospital course: Mr. 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 He did not take his home medications which included Levemir and lactulose/rifaximin. He was at the cancer center and during an infusion he appeared confused with hand tremors, palpitations. He is on steroids during th infusion. When he was brought to ED, he had glucose in 600s, and ammonia was 102, which is above his baseline. He did not have DKA, as he did not have acidosis. He was started on an insulin drip, started on IV fluids and back on lactulose. Patient mental status improved and he was transitioned back to Levemir. Ammonia levels came down to 60s. His parents at bedside stated that he was back to his normal baseline mental status. He was discharged home to resume home medications. - Time Spent with Patient Total time spent providing and/or coordinating discharge services: - Discharge Medications Home Medications: Insulin DETEMIR [Levemir Flextouch] 60 unit SQ QAM 01/10/15 [History] Rifaximin [Xifaxan] 550 mg PO BID 01/10/15 [History] Apremilast [Otezla] 30 mg PO BID 11/04/17 [History] Calcium Acetate [Phos-LO] 1,334 mg PO TIDWM 11/04/17 [History] Lactulose [Enulose] 15 ml PO TID 11/04/17 [History] Loratadine [Allergy Relief] 10 mg PO DAILY 11/04/17 [History] Lubiprostone [Amitiza] 24 mcg PO BID 11/04/17 [History] Ondansetron HCl 8 mg PO Q8H 11/04/17 [History] Polyethylene Glycol 3350 [MiraLAX] 17 gm PO DAILY 11/04/17 [History] Spironolactone [Aldactone] 100 mg PO DAILY 11/04/17 [History] Zinc Sulfate 220 mg PO TID 11/04/17 [History] FLUoxetine HCl [Fluoxetine HCl] 10 mg PO DAILY 11/27/17 [History] Pregabalin [Lyrica] 200 mg PO BID 11/27/17 [History] Lidocaine/Prilocaine [Emla] 1 appl TP AD #30 gm 12/07/17 [Rx] Loperamide [Imodium] 2 mg PO AD PRN #30 capsule MDD MAX 8 CAP PER DAY 12/07/17 [ Rx] Magic Mouthwash 5 ml PO Q4H PRN #240 ml 12/07/17 [Rx] Nystatin [Nystatin Suspension] 100,000 unit PO TID #200 oral.susp 12/21/17 [Rx] 0.9 % Sodium Chloride 1,000 ml IV CONT #1000 ml 12/24/17 [Rx] Amitriptyline [Elavil] 25 mg PO HS 12/26/17 [History] Ferrous Sulfate [Iron] 325 mg PO DAILY 12/26/17 [History] Insulin ASPART [Novolog] 5 - 20 unit SQ TIDWM 12/26/17 [History] Metoclopramide [Reglan] 10 mg PO Q8H PRN 12/26/17 [History] Pantoprazole Sodium [Protonix] 40 mg PO DAILY 12/26/17 [History] metFORMIN [Glucophage] 500 mg PO BIDWM 12/26/17 [History] Megestrol Acetate [Megace] 800 mg PO DAILY #400 udc 01/11/18 [Rx] Promethazine [Phenergan] 25 mg PO Q8HR #60 tablet 01/15/18 [Rx] Amoxicillin/Clavulanate [Augmentin] 875 mg PO BIDWM #14 tablet 01/19/18 [Rx] Fluconazole [Diflucan] 100 mg PO DAILY #7 tablet 01/19/18 [Rx] Omeprazole [PriLOSEC] 40 mg PO BID #60 cap 01/19/18 [Rx] Sucralfate [Carafate] 1 gm PO TID #90 tablet 01/20/18 [Rx] Acyclovir [Zovirax] 400 mg PO BID 01/22/18 [History] Cyclobenzaprine HCl 10 mg PO TID PRN 01/22/18 [History] Insulin DETEMIR [Levemir Flextouch] 45 unit SQ HS 01/22/18 [History] Oxycodone HCl 15 mg PO Q6H PRN 01/22/18 [History] Spironolactone [Aldactone] 25 mg PO DAILY 01/22/18 [History] Vitamin E Acid Succinate [Vitamin E] 400 units PO DAILY 01/22/18 [History] Allergies/Adverse Reactions: 3 Allergy/AdvReac Type Severity Reaction Status Date / Time morphine Allergy Itching Verified 12/06/17 15:45 Date of admission: 01/22/18 16:01 Primary care physician: Tripp Angulo DO Consults: 01/22/18 20:56 Consult to Nutrition [CONS] Routine Comment: Consulting Provider: NUTRITION Reason for Dietary Consult: MST Score Discharging clinician: Mitchell Martinez - Constitutional Vitals: Temp Pulse Resp BP Pulse Ox 98.0 F 106 19 112/64 97 01/24/18 07:21 01/24/18 07:21 01/24/18 07:21 01/24/18 07:21 01/24/18 07:21 General appearance: Present: A&O X 3, no acute distress, answers questions appropriately Exam: Gen: NAD, AAOx3, no focal deficits Chest right port in place CVS: RRR Lungs: CTAB Abd: soft, NT, ND - Patient Status Disposition: Home, Self-Care Condition: Fair Functional capacity at discharge: independent ambulation Overall status at discharge: patient is back to baseline - Discharge Instructions Follow Up With: Tripp Angulo, DO [Primary Care Provider] - - Diet and Activity Activity: increase activity as tolerated Diet: advance to your usual diet
[2018-01-24] MEDS: Apremilast [Otezla] 30 MG PO SCH (10:30)
--- NOTE | 2018-01-24 10:37 | Physician Discharge Referral ---
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 For more information, call the [place] Tobacco Quit Line at 1-673-NQJF-NOW. - Diet/Nutrition Diet/Nutrition: List: diabetic - Activity Activity Orders: Up ad see - Services Needed Following services are medically necessary services: Home Health Aide - Transfer Medications Home Medications: Insulin DETEMIR [Levemir Flextouch] 60 unit SQ QAM 01/10/15 [History] Rifaximin [Xifaxan] 550 mg PO BID 01/10/15 [History] Apremilast [Otezla] 30 mg PO BID 11/04/17 [History] Calcium Acetate [Phos-LO] 1,334 mg PO TIDWM 11/04/17 [History] Lactulose [Enulose] 15 ml PO TID 11/04/17 [History] Loratadine [Allergy Relief] 10 mg PO DAILY 11/04/17 [History] Lubiprostone [Amitiza] 24 mcg PO BID 11/04/17 [History] Ondansetron HCl 8 mg PO Q8H 11/04/17 [History] Polyethylene Glycol 3350 [MiraLAX] 17 gm PO DAILY 11/04/17 [History] Spironolactone [Aldactone] 100 mg PO DAILY 11/04/17 [History] Zinc Sulfate 220 mg PO TID 11/04/17 [History] FLUoxetine HCl [Fluoxetine HCl] 10 mg PO DAILY 11/27/17 [History] Pregabalin [Lyrica] 200 mg PO BID 11/27/17 [History] Lidocaine/Prilocaine [Emla] 1 appl TP AD #30 gm 12/07/17 [Rx] Loperamide [Imodium] 2 mg PO AD PRN #30 capsule MDD MAX 8 CAP PER DAY 12/07/17 [ Rx] Magic Mouthwash 5 ml PO Q4H PRN #240 ml 12/07/17 [Rx] Nystatin [Nystatin Suspension] 100,000 unit PO TID #200 oral.susp 12/21/17 [Rx] 0.9 % Sodium Chloride 1,000 ml IV CONT #1000 ml 12/24/17 [Rx] Amitriptyline [Elavil] 25 mg PO HS 12/26/17 [History] Ferrous Sulfate [Iron] 325 mg PO DAILY 12/26/17 [History] Insulin ASPART [Novolog] 5 - 20 unit SQ TIDWM 12/26/17 [History] Metoclopramide [Reglan] 10 mg PO Q8H PRN 12/26/17 [History] Pantoprazole Sodium [Protonix] 40 mg PO DAILY 12/26/17 [History] metFORMIN [Glucophage] 500 mg PO BIDWM 12/26/17 [History] Megestrol Acetate [Megace] 800 mg PO DAILY #400 udc 01/11/18 [Rx] Promethazine [Phenergan] 25 mg PO Q8HR #60 tablet 01/15/18 [Rx] Amoxicillin/Clavulanate [Augmentin] 875 mg PO BIDWM #14 tablet 01/19/18 [Rx] Fluconazole [Diflucan] 100 mg PO DAILY #7 tablet 01/19/18 [Rx] Omeprazole [PriLOSEC] 40 mg PO BID #60 cap 01/19/18 [Rx] Sucralfate [Carafate] 1 gm PO TID #90 tablet 01/20/18 [Rx] Acyclovir [Zovirax] 400 mg PO BID 01/22/18 [History] Cyclobenzaprine HCl 10 mg PO TID PRN 01/22/18 [History] Insulin DETEMIR [Levemir Flextouch] 45 unit SQ HS 01/22/18 [History] Oxycodone HCl 15 mg PO Q6H PRN 01/22/18 [History] Spironolactone [Aldactone] 25 mg PO DAILY 01/22/18 [History] Vitamin E Acid Succinate [Vitamin E] 400 units PO DAILY 01/22/18 [History] Allergies/Adverse Reactions: 3 Allergy/AdvReac Type Severity Reaction Status Date / Time morphine Allergy Itching Verified 12/06/17 15:45 Certification: Further, I certify that my clinical findings support that this patient is homebound (i.e. absences from home require considerable and taxing effort and are for medical reasons or jehovah's witness services or infrequently or short duration when for other reasons) because: Homebound Reason: Patient requires assistance of a person or device to safely leave home Attestation: My signature below is to certify that this patient is under my care and that I, or nurse practitioner, or a physician's city carrier assistant working with me, has a face-to -face encounter with this patient.
== END 2018-01-24 11:03 | disposition home or self-care (01) | DRG 637 ==
LOC: EMEROOARM 12:51 → 2ANU 12:51
PROVIDERS: ADMIT Internal Medicine; ATTEND Internal Medicine

== ENCOUNTER 2018-03-18 19:41 | Inpatient (IN) ==
[2018-03-18] MEDS ORDERED: Naloxone 0.4 MG/ML INJ IVP PRN (22:39)
[2018-03-18] MEDS ORDERED: Ringers Solution, Lactated 1,000 ML IVC ONE (22:42)
[2018-03-18] MEDS ORDERED: Gadolinium Contrast Agent (WT Based) IV PRN (23:40)
[2018-03-19] MEDS: Insulin DETEMIR 100 UNIT/ML X5UNITS SQ SCH ×3 (00:11→21:23)
[2018-03-19 00:44] LABS: Basophils % 0.3 %; Eosinophils % 0.3 %; Hematocrit 23.2 % (37.5-50.1); Lymphocytes # 0.5 K/mcL (0.6-4.6); Lymphocytes % 18.1 %; Mean Corpuscular HGB Conc 34.1 g/dL (31.6-35.5); Mean Corpuscular Hemoglobin 32.2 pg (28.0-33.3); Monocytes # 0.2 K/mcL (0.0-1.3); Neutrophils # 2.2 K/mcL (1.6-8.9); Red Blood Count 2.45 M/mcL (4.19-5.50); Red Cell Distribution Width 17.1 % (11.5-14.5); Segmented Neutrophils % 73.3 %
[2018-03-19 01:01] LABS: Hemoglobin 7.9 g/dL (12.9-16.9); Platelet Count 28 K/mcL (140-400)
[2018-03-19 01:02] LABS: Mean Corpuscular Volume 94.7 fL (83.0-100.0)
--- NOTE | 2018-03-19 01:06 | Internal Med History&Physical ---
<JillianBj Younger - Last Filed: 03/19/18 01:35> Date of Encounter: 03/19/18 Time of Encounter: 22:00 Internal Medicine - H&P: HPI Chief complaint: Back pain Admitted From: Emergency Dept Plans for Post Hospital Care: Home History of present illness: Mr. Rey is a 42 year old male with history of metastatic testicular cancer, psoriatic arthritis, type 2 diabetes presents with back pain. Patient states he was sitting on the toilet and when he tried to get up he had sudden onset back pain. He states the pain started in the mid low back and is radiated up his back. He states he has never had anything like this before. Denies any recent trauma. He states he needed help getting off the toilet due to pain but did not feel any weakness or new numbness or tingling in his legs. He denies any change in his bowel or bladder function, denies saddle anesthesia. States he is been able to walk around. Patient also reports vomiting for the last week. States he has had a decreased appetite is not much and he has vomited each night for the past week. States that he does not really feel nauseous. Denies any change in bowel habits, denies hematemesis, hematochezia, melena. He states he has been trying to keep up with fluids with water but is been having difficulty. Reports he is currently undergoing chemotherapy for metastatic testicular cancer. States he completed his last chemotherapy session last Thursday. 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 Psychiatric history: no psych history - Past Surgical History Surgical History: other Additional surgical history: LASER EYE SURGERY. LT TESTICLE REMOVED DUE TO CANCER. TIPS PROCEDURE. - Social History Smoking Status: Never smoker Smokeless Tobacco Status: No Alcohol use: none Drug use: none - Family History Father Hx Family Cardiac Disorders: Yes (murrmur) Brother Living Status: Hx Family GI Disorders: Yes (Esophgeal) Maternal Grandmother Adopted: No Hx Family Endocrine Disorder: Yes (diabetic) Internal Medicine - H&P: Meds Insulin DETEMIR [Levemir Flextouch] 60 unit SQ QAM 01/10/15 [History] Rifaximin [Xifaxan] 550 mg PO BID 01/10/15 [History] Apremilast [Otezla] 30 mg PO BID 11/04/17 [History] Lactulose [Enulose] 30 ml PO TID 11/04/17 [History] Loratadine [Allergy Relief] 10 mg PO DAILY 11/04/17 [History] Lubiprostone [Amitiza] 24 mcg PO BID 11/04/17 [History] Ondansetron HCl 8 mg PO Q8H 11/04/17 [History] FLUoxetine HCl [Fluoxetine HCl] 10 mg PO DAILY 11/27/17 [History] Pregabalin [Lyrica] 200 mg PO BID 11/27/17 [History] Amitriptyline [Elavil] 25 mg PO HS 12/26/17 [History] Ferrous Sulfate [Iron] 325 mg PO DAILY 12/26/17 [History] Insulin ASPART [Novolog] 5 - 20 unit SQ TIDWM 12/26/17 [History] Metoclopramide [Reglan] 10 mg PO Q8H PRN 12/26/17 [History] Pantoprazole Sodium [Protonix] 40 mg PO DAILY 12/26/17 [History] metFORMIN [Glucophage] 500 mg PO BIDWM 12/26/17 [History] Megestrol Acetate [Megace] 800 mg PO DAILY #400 udc 01/11/18 [Rx] Promethazine [Phenergan] 25 mg PO Q8HR #60 tablet 01/15/18 [Rx] Omeprazole [PriLOSEC] 40 mg PO BID #60 cap 01/19/18 [Rx] Cyclobenzaprine HCl 10 mg PO TID PRN 01/22/18 [History] Insulin DETEMIR [Levemir Flextouch] 43 unit SQ HS 01/22/18 [History] Oxycodone HCl 15 mg PO Q6H PRN 01/22/18 [History] Vitamin E Acid Succinate [Vitamin E] 400 units PO DAILY 01/22/18 [History] Docusate Sodium [Colace] 100 mg PO BID #60 capsule 02/12/18 [Rx] Folic Acid 1 mg PO DAILY 02/25/18 [History] Magnesium Oxide 400 mg PO BID #10 tablet 03/15/18 [Rx] Ondansetron ODT [Zofran ODT] 4 mg SL Q4HR #20 tab.rapdis 03/15/18 [Rx] 3 Allergy/AdvReac Type Severity Reaction Status Date / Time morphine Allergy Itching Verified 03/15/18 12:55 All Systems PM: A 10-system review of systems was performed and is negative for pertinent findings except as documented above in the HPI. - Constitutional Constitutional: no chills, no fever(s), no falls - EENT Eyes: no blurry vision, no change in vision Nose, mouth and throat: no sinus pain, no sinus pressure, no sore throat - Cardiovascular Cardiovascular ROS IM: no chest pain, no dyspnea, no edema, no lightheadedness, no palpitations, no syncope - Respiratory Respiratory: no cough, no dyspnea, no chest congestion, no excessive phlegm production, no change in phlegm color - Gastrointestinal Gastrointestinal: vomiting, no abdominal pain, no diarrhea, no hematemesis, no hematochezia, no melena, no nausea - Genitourinary Genitourinary ROS male: no dysuria, no hematuria, no urinary frequency, no urinary hesitancy, no urinary incontinence - Musculoskeletal Musculoskeletal ROS IM: back pain, no numbness, no tingling - Integumentary Integumentary IM: no erythema, no rash - Neurological Neurological ROS: no abnormal gait, no confusion, no dizziness, no numbness, no paresthesias, no tingling, no weakness - Psychiatric Psychiatric: no anxiety, no confusion - Endocrine Endocrine IM: no polydipsia, no polyuria - Hematologic/Lymphatic Hematologic/Lymphatic: no easy bleeding, no easy bruising - Allergic/Immunologic Allergic/Immunologic: no tongue swelling, no throat swelling - Constitutional Vitals: Temp Pulse Resp BP Pulse Ox 98.2 F 98 16 96/54 100 03/18/18 22:35 03/18/18 22:35 03/18/18 22:35 03/18/18 22:35 03/18/18 22:35 General appearance: Present: A&O X 3, pleasant, no acute distress Exam: . - Head Head exam: Present: atraumatic, normal inspection, normocephalic - Eye Eye exam: Present: EOMI, PERRL - ENT ENT exam: Present: mucous membranes moist, normal oropharynx - Neck Neck exam general surgery: Present: full ROM, supple - Respiratory Respiratory exam: Present: CTAB. Absent: rales, respiratory distress, rhonchi, wheezes, tachypnea - Cardiovascular Cardiovascular exam: Present: RRR, tachycardia. Absent: gallop, irregular rhythm, rubs, systolic murmur - GI/Abdominal GI/Abdominal exam: Present: normal bowel sounds, soft, no peritoneal signs. Absent: distended, tenderness - Extremities Exam Extremities exam: Present: warm. Absent: pedal edema, tenderness - Back Exam Back exam: Present: paraspinal tenderness, tenderness (midline spinal tenderness ) - Neurological Exam Neurological exam: Present: alert, CN II-XII intact, oriented X3, no focal deficits, strengths equal and symetr throughout. Absent: motor sensory deficit , pronater drift, facial droop, speech deficit Additional comments: 5 out of 5 strength in lower extremities bilaterally. Reflexes 1 out of 4 bilaterally. No sensory changes. - Psychiatric Psychiatric exam: Present: normal affect, normal mood - Skin Skin exam: Present: dry, intact, warm Internal Med - H&P Results - Labs CBC & Chem 7: 03/19/18 Unknown 03/19/18 Unknown - Assessment and plan (1) Back pain Current Visit: Yes Status: Acute Assessment and plan: Acute onset midline lower back pain. No neurologic deficits noted on exam but given history of cancer concern for metastatic disease versus pathologic fracture. Of note patient was moving all 4 extremities spontaneously and when I entered the room he had his knees bent and legs up and was pushing off on his legs and attempt to get up. Initial CT was negative however will obtain MRI of the lumbar spine. Qualifiers: Back pain location: low back pain Chronicity: acute Back pain laterality : midline Sciatica presence: without sciatica Qualified Code(s): M54.5 - Low back pain (2) Dehydration Current Visit: No Status: Acute Assessment and plan: Likely secondary to chemotherapy and poor by mouth intake. Patient had significant hyperglycemia and lactic acidosis. Patient received 2 L in the emergency department, remains tachycardic, will give another liter bolus and continue maintenance fluids. Clear liquid diet and encourage by mouth intake. (3) Liver cirrhosis Current Visit: No Status: Chronic Assessment and plan: History of, may also be contributing to his thrombocytopenia and anemia as above. Continue lactulose 3 times a day, titrating 2 to 3 soft bowel movements daily. Qualifiers: Hepatic cirrhosis type: unspecified hepatic cirrhosis Ascites presence: unspecified Qualified Code(s): K74.60 - Unspecified cirrhosis of liver (4) Testicular cancer Current Visit: No Status: Chronic Assessment and plan: Metastatic, currently undergoing chemotherapy, last treatment was on Thursday. Qualifiers: Descendance of testis: unspecified Laterality: unspecified laterality Qualified Code(s): C62.90 - Malignant neoplasm of unspecified testis, unspecified whether descended or undescended (5) Diabetes mellitus, type 2 Current Visit: No Status: Chronic Assessment and plan: Patient presents with hyperglycemia a blood sugar in the 800s, with no anion gap. Upon arrival blood glucoses been down into the 300s with fluid hydration. Likely due to dehydration and stress response. Continue fluid hydration as above and restart patient's home insulin regimen. Qualifiers: Diabetes mellitus half-way insulin use: with caramel candy maker helper use Diabetes mellitus complication status: with hyperglycemia Qualified Code(s): E11.65 - Type 2 diabetes mellitus with hyperglycemia; Z79.4 - managed care specialist (current) use of insulin (6) DVT prophylaxis Current Visit: No Status: Acute Assessment and plan: Heparin 5000 sq BID (7) Pancytopenia Current Visit: Yes Status: Acute Assessment and plan: Likely due to chemotherapy. White count 4.1, hemoglobin 9.9, platelets 42,000. No evidence of infection or signs of active bleeding. Continue to trend blood counts, if worsens patient may require heme on consult and possible granulocyte colony-stimulating factors. Transfer use E hemoglobin less than 7 or platelets less than 10 or less then 25 if signs of active bleeding. - Time Spent With Patient Total time spent is greater than 50% in coordination of care (as documented) at patient's floor/unit and/or counseling patient: <[email or web address] - Last Filed: 03/19/18 02:29> Date of Encounter: 03/19/18 Internal Medicine - H&P: HPI History of present illness: Mr. Rey is a 42 year old male All Systems PM: A 10-system review of systems was performed and is negative for pertinent findings except as documented above in the HPI. - Constitutional Vitals: Temp Pulse Resp BP Pulse Ox 98.2 F 109 10 110/72 99 03/19/18 01:11 03/19/18 01:11 03/19/18 01:11 03/19/18 01:11 03/19/18 01:11 Internal Med - H&P Results - Labs CBC & Chem 7: 03/19/18 Unknown 03/19/18 Unknown Labs: Short CBC 03/19/18 Range/Units Unknown WBC 3.0 L (4.3-11.1) K/mcL Hgb 7.9 L D (12.9-16.9) g/dL Hct 23.2 L (37.5-50.1) % Plt Count 28 L* (140-400) K/mcL Neutrophils # 2.2 (1.6-8.9) K/mcL BMP 03/19/18 Unknown Sodium 139 Potassium 3.2 L Chloride 107 Carbon Dioxide 27 BUN 5 L Creatinine 0.40 L Glucose 372 H Calcium 7.4 L Liver Function 03/19/18 Range/Units Unknown Total Bilirubin 1.5 H (0.3-1.0) mg/dL Direct Bilirubin 0.5 H (0.0-0.2) mg/dL AST 28 (13-39) Units/L ALT 27 (7-52) Units/L Alkaline Phosphatase 156 H (34-104) Units/L Albumin 2.0 L (3.5-5.7) g/dL - Assessment and plan (1) Diabetes mellitus, type 2 Current Visit: No Status: Chronic Qualifiers: Diabetes mellitus half-way insulin use: with half-way use Diabetes mellitus complication status: with hyperglycemia Qualified Code(s): E11.65 - Type 2 diabetes mellitus with hyperglycemia; Z79.4 - halfway (current) use of insulin (2) Testicular cancer Current Visit: No Status: Chronic Qualifiers: Descendance of testis: unspecified Laterality: unspecified laterality Qualified Code(s): C62.90 - Malignant neoplasm of unspecified testis, unspecified whether descended or undescended (3) Liver cirrhosis Current Visit: No Status: Chronic Qualifiers: Hepatic cirrhosis type: unspecified hepatic cirrhosis Ascites presence: unspecified Qualified Code(s): K74.60 - Unspecified cirrhosis of liver (4) DVT prophylaxis Current Visit: No Status: Acute (5) Dehydration Current Visit: No Status: Acute (6) Back pain Current Visit: Yes Status: Acute Qualifiers: Back pain location: low back pain Chronicity: acute Back pain laterality : midline Sciatica presence: without sciatica Qualified Code(s): M54.5 - Low back pain (7) Pancytopenia Current Visit: Yes Status: Acute - Time Spent With Patient Total time spent is greater than 50% in coordination of care (as documented) at patient's floor/unit and/or counseling patient: - Attending Attestation Narciso Brendan Rey is a 42 year old man with a medical history significant for left testicular cancer status post orchiectomy at [facility] in 2008 and was discharged from clinic after 5 years of surveillance, liver cirrhosis with episodes of hepatic encephalopathy s/p TIPS (was on liver transplant list at [facility]), diabetes, GERD, GI bleed, hypertension. More recently he was found to have a large left retroperitoneal mass encasing blood vessels abutting the anterior left kidney differential favoring lymphoma, kidney cancer. 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 He received chemotherapy from December to February 2018 and continues to follow with oncology. On review of old records, it is seen he complained of nausea and vomiting which impeded his ability to eat sufficiently. He now presents here on transfer from [place] where he went to with complaints of back pain that commenced as he stood up from a seated position. The pain is exacerbated by movement and is new onset. No bowel or bladder incontinence reported. He did reported ongoing emesis for about 7 days preceding and feeling very dehydrated. No diarrhea, dysuria, fever or chills reported. Labs were done showing severe lactic acidemia at 8.5 with a glucose ~800mg/dl with negative ketones and AG of 13. UA was unremarkable. Mg 1.4. Lumbar spine CT showed mild degenerative changes and abd/pelvis imaging showed fluid surrounding the pancreas. Lipase was wnl. He received 20U regular insulin, 4L NS and 2grs MgSO4 and is transferred here for further management. Vitals reviewed show he has been persistently tachycardic but normotensive. Physical exam remarkable for a pale appearing white man with shaved head, dry mucous membranes with conjunctivae pallor, normal thoracic expansion with no wheezes, rales or rhonchi. Normal s1/s2, no m/r/g. Abdomen soft and non-tender. Trace pedal edema. AAO x 3. No focal deficits. Affect appropriate. Will admit as inpatient for hyperglycemic hyperosmolar non-ketotic state, dehydration, lactic acidemia, hypomagnesemia all secondary to poor intake, GI fluid losses and non-adherence to diabetic regimen. No clinical signs of skin/ soft tissue infection, UTI or meningitis. No respiratory symptoms present concerning for pneumonia however a CXR should be obtained. He will also benefit from advanced imaging of the thoracic vertebra to rule out a pathologic fracture as the cause of his spontaneous non-trauma induced back pain. Continue IVF resuscitation, start long acting insulin and sliding scale. Diabetic diet. No indication for antimicrobials at this time. A 10-system review of systems was performed and is negative for pertinent findings except as documented above in the HPI. Family history remarkable for diabetes in maternal grandmother and esophageal cancer in brother. Patient was seen and examined by me on 03/18/18. EVERARDO ROSENTHAL.
[2018-03-19 01:14] LABS: Platelet Estimate Decreased (Normal)
[2018-03-19 01:25] LABS: Alanine Aminotransferase 27 Units/L (7-52); Albumin/Globulin Ratio 0.9 (1.1-2.2); Alkaline Phosphatase 156 Units/L (34-104); Aspartate Amino Transferase 28 Units/L (13-39); Bilirubin,Direct 0.5 mg/dL (0.0-0.2); Bilirubin,Total 1.5 mg/dL (0.3-1.0); Blood Urea Nitrogen 5 mg/dL (6-20); Calcium 7.4 mg/dL (8.6-10.3); Carbon Dioxide 27 mEq/L (23-29); Chloride 107 mEq/L (98-107); Globulin 2.3 g/dL (2.4-3.5); Glucose 372 mg/dL (70-105); Magnesium 2.4 mg/dL (1.6-2.6); Osmolality,Calculated 300 (280-300); Potassium 3.2 mEq/L (3.5-5.1); Sodium 139 mEq/L (136-145); Total Protein 4.3 g/dL (6.4-8.9)
[2018-03-19] MEDS: Ondansetron ODT 4 MG TAB.RAPDIS SL SCH ×6 (01:40→21:22)
[2018-03-19] MEDS: *HR* OxyCODONE Immed Rel 15 MG TABLET PO PRN ×3 (01:40→22:03)
[2018-03-19 01:51] LABS: BUN/Creatinine Ratio 13 (6-26); eGFR For Non-African Americans > 60 (> 60)
[2018-03-19 05:02] LABS: Basophils % 0.3 %
[2018-03-19 05:04] LABS: Eosinophils % 0.8 %; Hematocrit 24.6 % (37.5-50.1); Immature Granulocytes % 0.8 % (0-4); Immature Platelets 7.4 % (1.1-6.1); Lymphocytes # 0.6 K/mcL (0.6-4.6); Lymphocytes % 15.7 %; Mean Corpuscular HGB Conc 33.7 g/dL (31.6-35.5); Mean Platelet Volume 13.9 fL (9.4-12.4); Monocytes # 0.2 K/mcL (0.0-1.3); Monocytes % 6.4 %; Neutrophils # 2.7 K/mcL (1.6-8.9); Red Blood Count 2.59 M/mcL (4.19-5.50)
[2018-03-19 05:09] LABS: BUN/Creatinine Ratio 14 (6-26); Blood Urea Nitrogen 5 mg/dL (6-20); Carbon Dioxide 28 mEq/L (23-29); Chloride 109 mEq/L (98-107); Potassium 3.5 mEq/L (3.5-5.1); Sodium 140 mEq/L (136-145)
[2018-03-19 05:10] LABS: Calcium 7.5 mg/dL (8.6-10.3); Glucose 250 mg/dL (70-105); Magnesium 1.7 mg/dL (1.6-2.6); Osmolality,Calculated 296 (280-300); eGFR For Non-African Americans > 60 (> 60)
[2018-03-19 05:14] LABS: Platelet Count 29 K/mcL (140-400)
[2018-03-19 05:15] LABS: Hemoglobin 8.3 g/dL (12.9-16.9)
[2018-03-19] MEDS ORDERED: *HR* Heparin 5,000 UNIT/ML VIAL SQ SCH (06:00)
[2018-03-19 09:07] LABS: Estimated Average Glucose 177 mg/dl; Hemoglobin A1C 7.8 %
[2018-03-19] MEDS: Pregabalin 50 MG CAPSULE PO SCH ×2 (09:51→21:22)
[2018-03-19] MEDS: Ringers Solution, Lactated 1,000 ML IVC SCH ×2 (09:52→10:05)
--- NOTE | 2018-03-19 11:26 | Internal Med Progress Note ---
Hospitalist Progress Note - Encounter Date of Encounter: 03/19/18 Time of Encounter: 11:24 - Subjective Interval History: Patient states back pain improved but still cleaner to palpation. - Exam Vitals: Temp Pulse Resp BP Pulse Ox 98.0 F 105 17 126/77 96 03/19/18 10:05 03/19/18 10:05 03/19/18 10:05 03/19/18 10:05 03/19/18 10:49 Exam: Gen: NAD, AAO x3 CVS: tachycardic, no mrg Lungs; CTAB Back: spinal and paraspinal tenderness, Neuro: CN II-XII grossly in tact, extremity strength 5/5 bilaterally. AAox3, no focal neuro deficits, strength all extremities equal throughout. No motor sensory deficit, no pronator drift, no facial droop. No sensory loss. - Assessment and Plan (1) Back pain Current Visit: Yes Status: Acute Assessment and Plan: Acute onset midline lower back pain. No neurologic deficits noted on exam but given history of cancer concern for metastatic disease versus pathologic fracture. Of note patient was moving all 4 extremities spontaneously and when I entered the room he had his knees bent and legs up and was pushing off on his legs and attempt to get up. Initial CT was negative however will obtain MRI of the lumbar spine. 03/19: needs to get MRI done at [facility]. (2) Diabetes mellitus, type 2 Current Visit: No Status: Chronic Assessment and Plan: Patient presents with hyperglycemia a blood sugar in the 800s, with no anion gap. Upon arrival blood glucoses been down into the 300s with fluid hydration. Likely due to dehydration and stress response. Continue fluid hydration as above and restart patient's home insulin regimen. 03/19: Glucose now improved to 118. Hold IV fluids, restart home Levemir. Diabetic diet. (3) Testicular cancer Current Visit: No Status: Chronic Assessment and Plan: Metastatic, currently undergoing chemotherapy, last treatment was on Thursday. (4) Liver cirrhosis Current Visit: No Status: Chronic Assessment and Plan: History of, may also be contributing to his thrombocytopenia and anemia as above. Continue lactulose 3 times a day, titrating 2 to 3 soft bowel movements daily. (5) Dehydration Current Visit: No Status: Acute Assessment and Plan: Likely secondary to chemotherapy and poor by mouth intake. Patient had significant hyperglycemia and lactic acidosis. Patient received 2 L in the emergency department, remains tachycardic, will give another liter bolus and continue maintenance fluids. Clear liquid diet and encourage by mouth intake. (6) Pancytopenia Current Visit: Yes Status: Acute Assessment and Plan: Likely due to chemotherapy. White count 4.1, hemoglobin 9.9, platelets 42,000. No evidence of infection or signs of active bleeding. Continue to trend blood counts, if worsens patient may require heme on consult and possible granulocyte colony-stimulating factors. Transfer use E hemoglobin less than 7 or platelets less than 10 or less then 25 if signs of active bleeding. (7) DVT prophylaxis Current Visit: No Status: Acute Assessment and Plan: Heparin 5000 sq BID - Time Spent with Patient Total time spent is greater than 50% in coordination of care (as documented) at patient's floor/unit and/or counseling patient: Internal Medicine: Result - Labs CBC & Chem 7: 03/19/18 Unknown 03/19/18 Unknown Labs: Short CBC 03/19/18 03/19/18 Range/Units 04:00 Unknown WBC 3.6 L 3.0 L (4.3-11.1) K/mcL Hgb 8.3 L D 7.9 L (12.9-16.9) g/dL Hct 24.6 L 23.2 L (37.5-50.1) % Plt Count 29 L* 28 L* (140-400) K/mcL Neutrophils # 2.7 2.2 (1.6-8.9) K/mcL BMP 03/19/18 03/19/18 04:00 Unknown Sodium 140 139 Potassium 3.5 3.2 L Chloride 109 H 107 Carbon Dioxide 28 27 BUN 5 L 5 L Creatinine 0.35 L 0.40 L Glucose 250 H 372 H Calcium 7.5 L 7.4 L Liver Function 03/19/18 Range/Units Unknown Total Bilirubin 1.5 H (0.3-1.0) mg/dL Direct Bilirubin 0.5 H (0.0-0.2) mg/dL AST 28 (13-39) Units/L ALT 27 (7-52) Units/L Alkaline Phosphatase 156 H (34-104) Units/L Albumin 2.0 L (3.5-5.7) g/dL Consult Discharge Plan - Plan Referrals: Tripp Angulo, [Primary Care Provider] - (1) Back pain Qualifiers: Back pain location: low back pain Chronicity: acute Back pain laterality: midline Sciatica presence: without sciatica Qualified Code(s): M54.5 - Low back pain (2) Diabetes mellitus, type 2 Qualifiers: Diabetes mellitus prison insulin use: with intermediate project manager use Diabetes mellitus complication status: with hyperglycemia Qualified Code(s): E11.65 - Type 2 diabetes mellitus with hyperglycemia; Z79.4 - roasterman (current) use of insulin (3) Testicular cancer Qualifiers: Descendance of testis: unspecified Laterality: unspecified laterality Qualified Code(s): C62.90 - Malignant neoplasm of unspecified testis, unspecified whether descended or undescended (4) Liver cirrhosis Qualifiers: Hepatic cirrhosis type: unspecified hepatic cirrhosis Ascites presence: unspecified Qualified Code(s): K74.60 - Unspecified cirrhosis of liver
[2018-03-19] MEDS ORDERED: Insulin LISPRO 300 UNITS/3 ML VIAL SQ ONE (11:44)
[2018-03-19] MEDS: Lactulose Oral Soln 20 GM/30 ML UDC PO SCH ×3 (11:47→21:23)
[2018-03-19] MEDS: Insulin LISPRO 300 UNITS/3 ML VIAL SQ SCH ×3 (11:53→21:22)
[2018-03-20] MEDS ORDERED: Cetirizine HCl 5 MG/5 ML UDC PO ONE (00:05)
[2018-03-20] MEDS: Ondansetron ODT 4 MG TAB.RAPDIS SL SCH ×6 (00:23→22:53)
[2018-03-20 00:48] LABS: Eosinophils % 0.7 %
[2018-03-20 00:50] LABS: Basophils % 0.4 %; Hemoglobin 8.8 g/dL (12.9-16.9); Immature Granulocytes % 1.1 % (0-4); Immature Platelets 5.8 % (1.1-6.1); Lymphocytes # 0.6 K/mcL (0.6-4.6); Lymphocytes % 13.5 %; Mean Corpuscular HGB Conc 33.8 g/dL (31.6-35.5); Mean Corpuscular Hemoglobin 32.5 pg (28.0-33.3); Mean Corpuscular Volume 95.9 fL (83.0-100.0); Mean Platelet Volume 12.7 fL (9.4-12.4); Monocytes # 0.3 K/mcL (0.0-1.3); Red Blood Count 2.71 M/mcL (4.19-5.50); Red Cell Distribution Width 17.9 % (11.5-14.5); Segmented Neutrophils % 77.3 %
[2018-03-20 00:55] LABS: Neutrophils # 3.5 K/mcL (1.6-8.9); Platelet Count 40 K/mcL (140-400)
[2018-03-20 01:09] LABS: Alanine Aminotransferase 31 Units/L (7-52); Albumin 2.1 g/dL (3.5-5.7); Albumin/Globulin Ratio 0.9 (1.1-2.2); Alkaline Phosphatase 156 Units/L (34-104); Aspartate Amino Transferase 52 Units/L (13-39); BUN/Creatinine Ratio 12 (6-26); Bilirubin,Total 1.6 mg/dL (0.3-1.0); Blood Urea Nitrogen 6 mg/dL (6-20); Calcium 7.8 mg/dL (8.6-10.3); Carbon Dioxide 28 mEq/L (23-29); Chloride 106 mEq/L (98-107); Globulin 2.3 g/dL (2.4-3.5); Glucose 278 mg/dL (70-105); Lipase 37 Units/L (11-82); Osmolality,Calculated 290 (280-300); Potassium 4.5 mEq/L (3.5-5.1); Sodium 136 mEq/L (136-145); Total Protein 4.4 g/dL (6.4-8.9); eGFR For Non-African Americans > 60 (> 60)
[2018-03-20] MEDS: *HR* OxyCODONE Immed Rel 15 MG TABLET PO PRN (09:37)
[2018-03-20] MEDS: Pregabalin 50 MG CAPSULE PO SCH ×2 (09:38→22:54)
[2018-03-20] MEDS: Insulin LISPRO 300 UNITS/3 ML VIAL SQ SCH ×4 (09:38→22:53)
[2018-03-20] MEDS: Insulin DETEMIR 100 UNIT/ML X5UNITS SQ SCH ×2 (09:42→22:54)
[2018-03-20] MEDS: Lactulose Oral Soln 20 GM/30 ML UDC PO SCH ×3 (10:51→22:54)
--- NOTE | 2018-03-20 15:20 | Internal Med Progress Note ---
Hospitalist Progress Note - Encounter Date of Encounter: 03/20/18 Time of Encounter: 15:27 - Subjective Interval History: Patient states back pain improved but bar tender to palpation. - Exam Vitals: Temp Pulse Resp BP Pulse Ox 98.2 F 116 18 104/65 97 03/20/18 10:51 03/20/18 10:51 03/20/18 10:51 03/20/18 10:51 03/20/18 10:51 Exam: Gen: NAD, AAO x3 Mucus membranes dry CVS: tachycardic, no mrg Lungs; CTAB Abdomen: soft, nt/nd Back: spinal and paraspinal tenderness, Neuro: CN II-XII grossly in tact, extremity strength 5/5 bilaterally. AAox3, no focal neuro deficits, strength all extremities equal throughout. No motor sensory deficit, no pronator drift, no facial droop. No sensory loss. - Assessment and Plan (1) Nausea and vomiting Current Visit: No Status: Acute Assessment and Plan: Likely related to chemotherapy. Currently improving but does need IV fluids today. Zofran prn. (2) Tachycardia Current Visit: Yes Status: Acute Assessment and Plan: Patient has been sinus tachycardic with HR running 80s-120s. He runs 100-110 at home Currently at bedside 115 bpm. Normal BP Denies chest pain, shortness of breath I'm concern dehydrated and has some worsening of tachycardia due to that. Give gentle hydration today. (3) Lactic acidosis Current Visit: No Status: Acute Assessment and Plan: Patient presented as a transfer from [place] for dehydration and lactic acidosis of 8.5. Resolved with IV fluids, yesterday was 2.1. Could have been worsened with metformin and so will not resume this on discharge. (4) Dehydration Current Visit: No Status: Acute Assessment and Plan: Likely secondary to chemotherapy and poor by mouth intake. Patient had significant hyperglycemia and lactic acidosis. Patient received 2 L in the emergency department, remains tachycardic, will give another liter bolus and continue maintenance fluids. Clear liquid diet and encourage by mouth intake. Was able to tolerate some breakfast and lunch. Could still use a little IV fluid cautiously as he has cirrhosis but appears a little dehydrated today. (5) Back pain Current Visit: Yes Status: Acute Assessment and Plan: Acute onset midline lower back pain. No neurologic deficits noted on exam but given history of cancer concern for metastatic disease versus pathologic fracture. Of note patient was moving all 4 extremities spontaneously and when I entered the room he had his knees bent and legs up and was pushing off on his legs and attempt to get up. Initial CT was negative however will obtain MRI of the lumbar spine. MRI negative to explain findings. Likely musculoskelatal in nature. (6) Diabetes mellitus, type 2 Current Visit: No Status: Chronic Assessment and Plan: Patient presents with hyperglycemia a blood sugar in the 800s, with no anion gap. Upon arrival blood glucoses been down into the 300s with fluid hydration. Likely due to dehydration and stress response. Continue fluid hydration as above and restart patient's home insulin regimen. Glucose improved. Continue home Levemir doses, ISS, diabetic diet. Do not resume metformin on discharge due to lactic acidosis. (7) Testicular cancer Current Visit: No Status: Chronic Assessment and Plan: Metastatic, currently undergoing chemotherapy, last treatment was on Thursday. (8) Liver cirrhosis Current Visit: No Status: Chronic Assessment and Plan: History of, may also be contributing to his thrombocytopenia and anemia as above. Continue lactulose 3 times a day, titrating 2 to 3 soft bowel movements daily. (9) Pancytopenia Current Visit: Yes Status: Acute Assessment and Plan: Likely due to chemotherapy. White count 4.1, hemoglobin 9.9, platelets 42,000. No evidence of infection or signs of active bleeding. Continue to trend blood counts, if worsens patient may require heme on consult and possible granulocyte colony-stimulating factors. Transfer use E hemoglobin less than 7 or platelets less than 10 or less then 25 if signs of active bleeding. (10) DVT prophylaxis Current Visit: No Status: Acute Assessment and Plan: Heparin 5000 sq BID - Time Spent with Patient Total time spent is greater than 50% in coordination of care (as documented) at patient's floor/unit and/or counseling patient: Internal Medicine: Result - Labs CBC & Chem 7: 03/20/18 00:30 03/20/18 00:30 Labs: Short CBC 03/20/18 Range/Units 00:30 WBC 4.5 (4.3-11.1) K/mcL Hgb 8.8 L (12.9-16.9) g/dL Hct 26.0 L (37.5-50.1) % Plt Count 40 L (140-400) K/mcL Neutrophils # 3.5 (1.6-8.9) K/mcL BMP 03/20/18 00:30 Sodium 136 Potassium 4.5 D Chloride 106 Carbon Dioxide 28 BUN 6 Creatinine 0.51 L Glucose 278 H Calcium 7.8 L Liver Function 03/20/18 Range/Units 00:30 Total Bilirubin 1.6 H (0.3-1.0) mg/dL AST 52 H (13-39) Units/L ALT 31 (7-52) Units/L Alkaline Phosphatase 156 H (34-104) Units/L Albumin 2.1 L (3.5-5.7) g/dL - Impressions Impressions Lumbar Spine MRI 03/19/18 23:40 IMPRESSION: 1. No etiology identified to explain the patient's sudden onset severe back pain. 2. No metastatic disease identified within the lumbar spine. 3. Broad 2 mm central disc protrusion and facet arthropathy at L4-5 without significant spinal canal stenosis or neural foraminal narrowing present. 4. Focal 2 mm left paracentral disc protrusion at L2-3 without significant spinal canal stenosis or neural foraminal narrowing evident. D/ / 03/19/2018 14:03:26 Pedrito Fletcher MD / Jo Harris Interpreting Provider: Pedrito Fletcher MD Consult Discharge Plan - Plan Referrals: Tripp Angulo, DO [Primary Care Provider] - (1) Nausea and vomiting Qualifiers: Vomiting type: unspecified Vomiting Intractability: non-intractable Qualified Code(s): R11.2 - Nausea with vomiting, unspecified (5) Back pain Qualifiers: Back pain location: low back pain Chronicity: acute Back pain laterality: midline Sciatica presence: without sciatica Qualified Code(s): M54.5 - Low back pain (6) Diabetes mellitus, type 2 Qualifiers: Diabetes mellitus custodial insulin use: with custodial use Diabetes mellitus complication status: with hyperglycemia Qualified Code(s): E11.65 - Type 2 diabetes mellitus with hyperglycemia; Z79.4 - exterminator termite (current) use of insulin (7) Testicular cancer Qualifiers: Descendance of testis: unspecified Laterality: unspecified laterality Qualified Code(s): C62.90 - Malignant neoplasm of unspecified testis, unspecified whether descended or undescended (8) Liver cirrhosis Qualifiers: Hepatic cirrhosis type: unspecified hepatic cirrhosis Ascites presence: unspecified Qualified Code(s): K74.60 - Unspecified cirrhosis of liver
[2018-03-20] MEDS ORDERED: *HR* Metoprolol 5 MG/5 ML VIAL IVP ONE (15:29)
[2018-03-20] MEDS ORDERED: 0.9 % Sodium Chloride 1,000 ML IVC SCH (15:30)
[2018-03-21] MEDS: Ondansetron ODT 4 MG TAB.RAPDIS SL SCH ×4 (01:11→12:40)
[2018-03-21 04:37] LABS: Hemoglobin 8.5 g/dL (12.9-16.9); Mean Corpuscular Hemoglobin 32.8 pg (28.0-33.3); Mean Platelet Volume 11.7 fL (9.4-12.4); Red Blood Count 2.59 M/mcL (4.19-5.50); Red Cell Distribution Width 18.6 % (11.5-14.5)
[2018-03-21 04:38] LABS: Basophils % 0.4 %; Eosinophils % 0.4 %; Immature Granulocytes % 1.5 % (0-4); Immature Platelets 6.6 % (1.1-6.1); Lymphocytes # 0.6 K/mcL (0.6-4.6); Lymphocytes % 13.2 %; Mean Corpuscular Volume 96.5 fL (83.0-100.0); Monocytes # 0.4 K/mcL (0.0-1.3); Monocytes % 8.6 %; Neutrophils # 3.5 K/mcL (1.6-8.9); Segmented Neutrophils % 75.9 %
[2018-03-21 04:45] LABS: Platelet Count 42 K/mcL (140-400)
[2018-03-21 04:47] LABS: Alanine Aminotransferase 27 Units/L (7-52); Albumin 1.9 g/dL (3.5-5.7); Albumin/Globulin Ratio 0.8 (1.1-2.2); Alkaline Phosphatase 143 Units/L (34-104); Aspartate Amino Transferase 43 Units/L (13-39); BUN/Creatinine Ratio 25 (6-26); Bilirubin,Total 1.5 mg/dL (0.3-1.0); Blood Urea Nitrogen 11 mg/dL (6-20); Calcium 7.6 mg/dL (8.6-10.3); Carbon Dioxide 28 mEq/L (23-29); Chloride 105 mEq/L (98-107); Globulin 2.3 g/dL (2.4-3.5); Glucose 205 mg/dL (70-105); Osmolality,Calculated 287 (280-300); Potassium 4.1 mEq/L (3.5-5.1); Sodium 136 mEq/L (136-145); Total Protein 4.2 g/dL (6.4-8.9); eGFR For Non-African Americans > 60 (> 60)
[2018-03-21] MEDS: Insulin DETEMIR 100 UNIT/ML X5UNITS SQ SCH (08:39)
[2018-03-21] MEDS: Lactulose Oral Soln 20 GM/30 ML UDC PO SCH ×2 (08:39→12:46)
[2018-03-21] MEDS: Pregabalin 50 MG CAPSULE PO SCH (08:39)
[2018-03-21] MEDS: Insulin LISPRO 300 UNITS/3 ML VIAL SQ SCH ×2 (08:40→12:41)
[2018-03-21 11:11] VITALS: BP 110/73
--- NOTE | 2018-03-21 13:44 | Discharge Summary ---
- NOTES TO OUTPATIENT PROVIDER Notes to Outpatient Provider: - Follow-up diabetes management as metformin discontinued because of lactic acidosis. - Follow-up back pain. Likely musculoskeletal. Orders not resulted at time of discharge: Pending orders 03/22/18 04:00 CMP [Comprehensive Metabolic Panel] AM 0400 Complete Blood Count [HEME] AM 0400 03/23/18 04:00 CMP [Comprehensive Metabolic Panel] AM 0400 Complete Blood Count [HEME] AM 0400 03/24/18 04:00 CMP [Comprehensive Metabolic Panel] AM 0400 Complete Blood Count [HEME] AM 0400 Date of Encounter: 03/21/18 Time of Encounter: 13:43 - Discharge Diagnosis (1) Lactic acidosis Priority: Primary Status: Acute (2) Back pain Priority: Secondary Status: Acute Qualifiers: Back pain location: low back pain Chronicity: acute Back pain laterality : midline Sciatica presence: without sciatica Qualified Code(s): M54.5 - Low back pain (3) Nausea and vomiting Priority: Secondary Status: Acute Qualifiers: Vomiting type: unspecified Vomiting Intractability: non-intractable Qualified Code(s): R11.2 - Nausea with vomiting, unspecified (4) Tachycardia Priority: Secondary Status: Acute (5) Dehydration Priority: Secondary Status: Acute (6) Diabetes mellitus, type 2 Priority: Secondary Status: Chronic Qualifiers: 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 insulin use: with senior living use Diabetes mellitus complication status: with hyperglycemia Qualified Code(s): E11.65 - Type 2 diabetes mellitus with hyperglycemia; Z79.4 - [facility] (current) use of insulin (7) Testicular cancer Priority: Secondary Status: Chronic Qualifiers: Descendance of testis: unspecified Laterality: unspecified laterality Qualified Code(s): C62.90 - Malignant neoplasm of unspecified testis, unspecified whether descended or undescended (8) Liver cirrhosis Priority: Secondary Status: Chronic Qualifiers: Hepatic cirrhosis type: unspecified hepatic cirrhosis Ascites presence: unspecified Qualified Code(s): K74.60 - Unspecified cirrhosis of liver (9) Pancytopenia Priority: Secondary Status: Acute (10) DVT prophylaxis Priority: Secondary Status: Acute Hospital course: Mr. Rey is a 42 year old male with history of metastatic testicular cancer, psoriatic arthritis, type 2 diabetes presents as a transfer form [place] ED for lactic acidosis. He originally presented to [place] ED for acute lumbar back pain. Patient states he was sitting on the toilet and when he tried to get up he had sudden onset back pain. He states the pain started in the mid low back and is radiated up his back and he has no recent history of trauma, no weakness or new numbness or tingling in his legs, no change in his bowel or bladder function, denies saddle anesthesia. In the ED at [place] he was also complaining of decreased appetite, nausea and vomiting and difficulty keeping up with fluids. He is currently undergoing chemotherapy. He was transferred to [facility] due to lactic acidosis of 8.5 at [place]. Thrombocytopenia is noted and anemia but this is patient's baseline and chronic issue due to cancer and liver disease. He was given IV fluids and lactic acid improved to 2.1. Metformin was not continued on admission. He was tachycardic and dehydrated and this improved with continued IV fluid hydration that he required when transferred here. He was able to advance his diet and became more hydrated. He was discharged after diet and lactic acidosis improved. In regards to back pain, he did not have any neurologic deficitis on exam but MRI was done to rule out any metastatic process. There were no acute findings for back pain and given that his tenderness was spinal and paraspinal, this suggested musculoskeletal etiology. - Time Spent with Patient Total time spent providing and/or coordinating discharge services: - Discharge Medications Home Medications: Insulin DETEMIR [Levemir Flextouch] 60 unit SQ QAM 01/10/15 [History] Rifaximin [Xifaxan] 550 mg PO BID 01/10/15 [History] Apremilast [Otezla] 30 mg PO BID 11/04/17 [History] Lactulose [Enulose] 30 ml PO TID 11/04/17 [History] Loratadine [Allergy Relief] 10 mg PO DAILY 11/04/17 [History] Lubiprostone [Amitiza] 24 mcg PO BID 11/04/17 [History] FLUoxetine HCl [Fluoxetine HCl] 10 mg PO DAILY 11/27/17 [History] Amitriptyline [Elavil] 25 mg PO HS 12/26/17 [History] Ferrous Sulfate [Iron] 325 mg PO DAILY 12/26/17 [History] Insulin ASPART [Novolog] 5 - 20 unit SQ TIDWM 12/26/17 [History] Metoclopramide [Reglan] 10 mg PO Q8H PRN 12/26/17 [History] Pantoprazole Sodium [Protonix] 40 mg PO DAILY 12/26/17 [History] Promethazine [Phenergan] 25 mg PO Q8HR #60 tablet 01/15/18 [Rx] Cyclobenzaprine HCl 10 mg PO TID PRN 01/22/18 [History] Insulin DETEMIR [Levemir Flextouch] 43 unit SQ HS 01/22/18 [History] Vitamin E Acid Succinate [Vitamin E] 400 units PO DAILY 01/22/18 [History] Docusate Sodium [Colace] 100 mg PO BID #60 capsule 02/12/18 [Rx] Folic Acid 1 mg PO DAILY 02/25/18 [History] Magnesium Oxide 400 mg PO BID #10 tablet 03/15/18 [Rx] Ondansetron ODT [Zofran ODT] 4 mg SL Q4HR #20 tab.rapdis 03/15/18 [Rx] Oxycodone HCl [Oxycodone HCl ER] 15 mg PO Q12H 03/19/18 [History] Allergies/Adverse Reactions: 3 Allergy/AdvReac Type Severity Reaction Status Date / Time morphine Allergy Itching Verified 03/15/18 12:55 Date of admission: 03/19/18 17:24 Primary care physician: Tripp Angulo DO Consults: 03/19/18 10:03 Consult to Occupational Therapy [CONS] Routine Comment: Evaluate, develop and implement POC Reason for Consult: weak Does patient have active BEDREST order?: No Is patient medically & hemodynamically stable?: Yes Patient assessed for mobility or mobilized this visit?: No Consult to Physical Therapy [CONS] Routine Comment: Evaluate, develop and implement POC Reason for Consult: weak Does patient have active BEDREST order?: No Is patient medically & hemodynamically stable?: Yes Patient assessed for mobility or mobilized this visit?: No Discharging clinician: Mitchell Martinez - Constitutional Vitals: Temp Pulse Resp BP Pulse Ox 98.3 F 103 16 110/73 98 03/21/18 10:57 03/21/18 11:10 03/21/18 11:10 03/21/18 11:10 03/21/18 11:10 General appearance: Present: A&O X 3, pleasant, no acute distress Exam: Gen: NAD, AAO x3 Mucus membranes dry CVS: tachycardic, no mrg Lungs; CTAB Abdomen: soft, nt/nd Back: spinal and paraspinal tenderness, Neuro: CN II-XII grossly in tact, extremity strength 5/5 bilaterally. AAox3, no focal neuro deficits, strength all extremities equal throughout. No motor sensory deficit, no pronator drift, no facial droop. No sensory loss. - Patient Status Disposition: Home, Self-Care Condition: Undetermined Functional capacity at discharge: independent ambulation Overall status at discharge: patient is progressing back to baseline - Discharge Instructions Follow Up With: Tripp Angulo DO [Primary Care Provider] - - Diet and Activity Activity: increase activity as tolerated Diet: advance to your usual diet, diabetic diet
--- NOTE | 2018-03-21 14:16 | Physician Discharge Referral ---
Home Health/Hosp Referral Info Transfer to: Home Health Provider in Charge Post Discharge: PCP - Diagnosis (1) Lactic acidosis Priority: Primary Status: Acute (2) Back pain Priority: Secondary Status: Acute (3) Nausea and vomiting Priority: Secondary Status: Acute (4) Tachycardia Priority: Secondary Status: Acute (5) Dehydration Priority: Secondary Status: Acute (6) Diabetes mellitus, type 2 Priority: Secondary Status: Chronic (7) Testicular cancer Priority: Secondary Status: Chronic (8) Liver cirrhosis Priority: Secondary Status: Chronic (9) Pancytopenia Priority: Secondary Status: Acute (10) DVT prophylaxis Priority: Secondary Status: Acute - Respiratory Orders Smoking Cessation: Smoking cessation has been advised. For more information, call the [employer] Tobacco Quit Line at 9-806-HKYP-NOW. - Diet/Nutrition Diet/Nutrition Orders: No Concentrated Sweets - Services Needed Following services are medically necessary services: Nursing, Home Health Aide, Physical Therapy, Occupational Therapy - Transfer Medications Home Medications: Insulin DETEMIR [Levemir Flextouch] 60 unit SQ QAM 01/10/15 [History] Rifaximin [Xifaxan] 550 mg PO BID 01/10/15 [History] Apremilast [Otezla] 30 mg PO BID 11/04/17 [History] Lactulose [Enulose] 30 ml PO TID 11/04/17 [History] Loratadine [Allergy Relief] 10 mg PO DAILY 11/04/17 [History] Lubiprostone [Amitiza] 24 mcg PO BID 11/04/17 [History] FLUoxetine HCl [Fluoxetine HCl] 10 mg PO DAILY 11/27/17 [History] Amitriptyline [Elavil] 25 mg PO HS 12/26/17 [History] Ferrous Sulfate [Iron] 325 mg PO DAILY 12/26/17 [History] Insulin ASPART [Novolog] 5 - 20 unit SQ TIDWM 12/26/17 [History] Metoclopramide [Reglan] 10 mg PO Q8H PRN 12/26/17 [History] Pantoprazole Sodium [Protonix] 40 mg PO DAILY 12/26/17 [History] Promethazine [Phenergan] 25 mg PO Q8HR #60 tablet 01/15/18 [Rx] Cyclobenzaprine HCl 10 mg PO TID PRN 01/22/18 [History] Insulin DETEMIR [Levemir Flextouch] 43 unit SQ HS 01/22/18 [History] Vitamin E Acid Succinate [Vitamin E] 400 units PO DAILY 01/22/18 [History] Docusate Sodium [Colace] 100 mg PO BID #60 capsule 02/12/18 [Rx] Folic Acid 1 mg PO DAILY 02/25/18 [History] Magnesium Oxide 400 mg PO BID #10 tablet 03/15/18 [Rx] Ondansetron ODT [Zofran ODT] 4 mg SL Q4HR #20 tab.rapdis 03/15/18 [Rx] Oxycodone HCl [Oxycodone HCl ER] 15 mg PO Q12H 03/19/18 [History] Allergies/Adverse Reactions: 3 Allergy/AdvReac Type Severity Reaction Status Date / Time morphine Allergy Itching Verified 03/15/18 12:55 Certification: Further, I certify that my clinical findings support that this patient is homebound (i.e. absences from home require considerable and taxing effort and are for medical reasons or rastafarian services or infrequently or short duration when for other reasons) because: Homebound Reason: Leaving home requires considerable and taxing effort due to condition Attestation: My signature below is to certify that this patient is under my care and that I, or nurse practitioner, or a physician's finance assistant working with me, has a face-to -face encounter with this patient.
== END 2018-03-21 15:50 | disposition home health service (06) | DRG 640 ==
LOC: 2SOUTHHOLD → SUATTDRO 22:26 → 3NENU 03-19 17:23
PROVIDERS: ADMIT Internal Medicine; ATTEND Student in an Organized Health Care Education/Training Program